=== PATIENT | female | born 1975 | race Caucasian/White ===

== ENCOUNTER 2022-10-04 12:34 | Outpatient (OUT) | payer BC, SELFPAY ==
--- NOTE | 2022-10-04 12:44 | MM_ITS ---
Patient: IRENE SAMPSON Exam Date: 10/04/2022 : 1975 Gender:F Ordering : DR ADILSON ROUSSEAU . Admission #: [id number] Family : DR IRMA CHASE M.D. Order #: [id number] CLICK HERE TO VIEW EXAM RADIOLOGY REPORT PROCEDURE: MM TOMOSYNTHESIS SCREENING BI COMPARISON: MG MAMM SCREEN 3D ANTHONY CAD, 09/25/2021. MG MAMM SCREEN 3D ANTHONY CAD, 09/22/2020. MG MAMM SCREEN ANTHONY W CAD, 09/15/2019. MG MAMM SCREEN ANTHONY W CAD, 06/14/2017. INDICATIONS: Screening mammogram Z12.31 Calculator Name NCI Breast Cancer Risk Assessment Tool 5 Year Breast Cancer Risk 0.70% Lifetime Breast Cancer Risk 8.60% Personal Breast Cancer No Personal Ovarian Cancer No Treatments None Family Cancers None LOCATION: [facility] BREAST COMPOSITION: Scattered areas fibroglandular density. FINDINGS: DIAGNOSTIC CATEGORY 1--NEGATIVE. RIGHT BREAST: No significant suspicious finding. No significant change has occurred. LEFT BREAST: No significant suspicious finding. No significant change has occurred. RECOMMENDATIONS: ROUTINE MAMMOGRAM AND CLINICAL EVALUATION IN 12 MONTHS. PLEASE NOTE: A NORMAL MAMMOGRAM DOES NOT EXCLUDE THE POSSIBILITY OF BREAST CANCER. A CLINICALLY SUSPICIOUS PALPABLE LUMP SHOULD BE BIOPSIED. Dictated by: Armando Barry M.D. on 10/04/2022 at 16:34 Approved by: Armando Barry M.D. on 10/04/2022 at 16:37
== END 2022-10-04 12:35 | disposition home or self-care (01) ==
LOC: MAMMO 12:38
PROVIDERS: PCP Family Medicine; Visit Provider Obstetrics & Gynecology
DX: Z12.31 Encounter for screening mammogram for malignant neoplasm of breast (principal)
CPT/HCPCS: 77063; 77067

== ENCOUNTER 2023-10-07 13:49 | Outpatient (OUT) | payer OTHER, SELFPAY ==
--- NOTE | 2023-10-07 13:51 | MM_ITS ---
Patient Name: IRENE SAMPSON MR#: [id number] : 1975 Exam Date: 10/07/2023 Ordering Doctor: NOEMY Galindo RADIOLOGY REPORT PROCEDURE: MM TOMOSYNTHESIS SCREENING BI COMPARISON: MM TOMOSYNTHESIS SCREENING BI, 10/04/2022. MG MAMM SCREEN 3D ANTHONY CAD, 09/25/2021. MG MAMM SCREEN 3D ANTHONY CAD, 09/22/2020. MG MAMM SCREEN ANTHONY W CAD, 06/14/2017. INDICATIONS: Screening Calculator Name NCI Breast Cancer Risk Assessment Tool 5 Year Breast Cancer Risk 0.80% Lifetime Breast Cancer Risk 8.50% Personal Breast Cancer No Personal Ovarian Cancer No Treatments None Family Cancers None LOCATION: [facility] BREAST COMPOSITION: There are scattered areas of fibroglandular density. FINDINGS: DIAGNOSTIC CATEGORY 2--BENIGN FINDING: RIGHT BREAST: No significant suspicious finding. Scattered benign-appearing lymph nodes are present. No significant change has occurred. LEFT BREAST: No significant suspicious finding. Scattered benign-appearing lymph nodes are present. No significant change has occurred. RECOMMENDATIONS: ROUTINE MAMMOGRAM AND CLINICAL EVALUATION IN 12 MONTHS. PLEASE NOTE: A NORMAL MAMMOGRAM DOES NOT EXCLUDE THE POSSIBILITY OF BREAST CANCER. A CLINICALLY SUSPICIOUS PALPABLE LUMP SHOULD BE BIOPSIED. Dictated by: Armando Barry M.D. on 10/08/2023 at 13:46 Approved by: Armando Barry M.D. on 10/08/2023 at 13:49
== END 2023-10-07 13:50 | disposition home or self-care (01) ==
LOC: MAMMO 13:49
PROVIDERS: PCP Family Medicine; Visit Provider Nurse Practitioner Family
DX: Z12.31 Encounter for screening mammogram for malignant neoplasm of breast (principal)
CPT/HCPCS: 77063; 77067

== ENCOUNTER 2024-05-21 12:24 | Outpatient (OUT) | payer OTHER, SELFPAY ==
--- OUTSIDE RECORDS SUMMARY | 2024-05-21 12:30 | XMS_ITS | CCD ---
Author Organization [facility] Care Team Providers Care 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 Name Role Phone VALENTINE Clemente Attending Provider [phone] ONELIA, DR DE ANDA Consulting Unavailable ONELIA, DR DE ANDA Attending Unavailable LULY, DR SOLIS Primary Care Unavailable ONELIA, DR DE ANDA Admitting Unavailable ZISUSI, DR GISELA Teague Consulting Unavailable DO Gregorio Maldonado Attending Provider [phone] GILLES MAURICIO Primary Care Physician MD Reji Castellano Attending Provider MD Luly Gilles Primary Care Provider [phone] Gilles Mauricio Primary Care Unavailable Reji Castellano Attending Unavailable Reji Castellano Admitting Unavailable Gregorio Maldonado Attending Unavailable Gregorio Maldonado Admitting Unavailable KERRI MANZANARES Referring Unavailable LULY GILLES Heavenly Primary Care Unavailable JENIFFER BRISCOE Attending Unavailable GILLES MAURICIO Referring Unavailable GILLES MAURICIO Primary Care Unavailable Luly FAGAN Gilles Heavenly Primary Care Provider [phone] Kerri Manzanares NP Unavailable Gilles Mauricio MD Unavailable Gilles Mauricio MD Primary Care Provider [phone] DAVID CHRISTENSEN Attending Unavailab GILLES Park Attending Unavailable GILLES MAURICIO Referring Unavailable KERRI MANZANARES Attending Unavailable KERRI MANZANARES Attending Unavailable GREGORIO MALDONADO Attending Unavailable GLENNA KERRI R Referring Unavailable KERRI MANZANARES R Attending Unavailable GILLES MAURICIO Attending Unavailable GILLES MAURICIO Referring Unavailable GREGORIO MALDONADO Attending Unavailable REJI CASTELLANO Referring Unavailable KERRI MANZANARES Attending Unavailable Reji CASTELLANO Attending Unavailable GILLES MAURICIO Referring Unavailable Mandy Tejeda Attending Unavailable GILLES MAURICIO Referring Unavailable Allergies Allergy Classification Reported Allergen(s) Allergy Type Date of Onset Reaction(s) Facility (11 sources) LEVONORGESTREL-E THINYL ESTRAD; Translations: [LEVONORGESTREL- ETHINYL ESTRAD] Propensity to adverse reactions to drug (disorder) 4 [facility] (14 sources) Octacosanol Propensity to adverse reactions 4 [facility] (1 source) No Known Medication Allergies; Translations: [No Known Medication Allergies] Propensity to adverse reactions (disorder) [facility] Rep[facility] Medications Current Medications Medication Drug Class(es) Dates Sig (Normalized) Sig (Original) 0.25 MG, 0.5 MG Dose 3 ML semaglutide 0.68 MG/ML Pen Injector [Ozempic] (1 source) Start: 10-15-2023 Ozempic 2 mg/3 mL (0.25 mg or 0.5 mg dose) subcutaneous solution 0.25 mg Start Date: 10/15/23 Status: Ordered Allergy (1 source) Start: 02-27-2019 take 1 mg by mouth three times daily Allergy mg, Oral, TID, Refills(s) 0 Start Date: 02/27/19 Status: Ordered atorvastatin 10 mg oral tablet (19 sources) HMG-CoA Reductase Inhibitor Start: 05-04-2023 End: 10-22-2023 take 1 tablet by mouth once daily atorvastatin (Lipitor) 10 MG tablet Indications: Controlled type 2 diabetes mellitus with hyperglycemia, without long-term current use of insulin ([facility]) Take 1 tablet (10 mg) by mouth Daily 90 tablet 1 10/22/2023 Active Atorvastatin Dewey cium Active cephalexin 500 mg oral capsule (1 source) Cephalosporin Antibacterial Start: 05-03-2024 End: 05-08-2024 cephalexin (Keflex) 500 MG capsule Indications: Acute cystitis without hematuria Take 1 capsule (500 mg) by mouth in the morning and 1 capsule (500 mg) at noon and 1 capsule (500 mg) in the evening and 1 capsule (500 mg) before bedtime. Do all this for 5 days. 20 capsule 05/03/2024 05/08/2024 Active cloNIDine hydrochloride 0.1 mg oral tablet (4 sources) Central alpha-2 Adrenergic Agonist Start: 04-30-2024 End: 08-28-2024 take 1 tablet by mouth at bedtime cloNIDine (Catapres) 0.1 MG tablet Indications: Hot flashes Take 1 tablet (0.1 mg) by mouth at bedtime 30 tablet 3 04/30/2024 08/28/2024 Active 0.5 ml dulaglutide 1.5 mg/ml auto-injector (4 sources) GLP-1 Receptor Agonist Start: 04-30-2024 inject 0.75 mg by subcutaneous injection every week Dulaglutide (Trulicity) 0.75 MG/0.5ML solution auto-injector Indications: Controlled type 2 diabetes mellitus with hyperglycemia, without long-term current use of insulin (CMS/HCC) Inject 0.75 mg under the skin 1 (one) time per week 6 mL 11 04/30/2024 Active estrogens, conjugated (retirement) 0.9 mg oral tablet (1 source) Estrogen Start: 03-15-2020 Premarin 0.9 mg, Oral Start Date: 03/15/20 Status: Ordered ferrous sulfate (3 sources) End: 04-14-2024 take 1 tablet by mouth in the morning Ferrous Sulfate (IRON PO) Take 1 tablet by mouth in the morning. 04/14/2024 Discontinued (Therapy completed) take 1 tablet by mouth in the mo rning Ferrous Sulfate (IRON PO) Take 1 tablet by mouth in the morning. Active fluconazole 150 mg oral tablet (4 sources) Azole Antifungal Start: 11-13-2023 End: 04-14-2024 fluconazole (Diflucan) 150 MG tablet 11/13/2023 04/14/2024 Discontinued (Therapy completed) Start: 11-12-2023 End: 11-12-2023 take 1 tablet by mouth once fluconazole (Diflucan) 150 MG tablet Indications: Yeast infection Take 1 tablet (150 mg) by mouth 1 (one) time for 1 dose 1 tablet 11/12/2023 11/12/2023 Active fluticasone propionate 0.05 mg/actuat metered dose nasal spray (12 sources) Corticosteroid Start: 02-14-2024 End: 04-30-2025 take 1 spray(s) nasal route once daily fluticasone (Flonase) 50 MCG/ACT nasal spray Indications: Allergic rhinitis due to pollen, unspecified seasonality Administer 1 spray into each nostril Daily Shake gently. Before first use, prime pump. After use, clean tip and replace cap. 16 g 2 04/30/2024 04/30/2025 Active Flonase Active loratadine 10 mg oral tablet (18 sources) Start: 10-22-2023 End: 10-22-2023 take 1 tablet by mouth once daily loratadine (Allergy) 10 MG tablet Indications: Allergic rhinitis due to pollen, unspecified seasonality Take 1 tablet (10 mg) by mouth Daily 90 tablet 1 10/22/2023 Active Loratadine Activ e metFORMIN hydrochloride 500 mg oral tablet (19 sources) Biguanide Start: 02-27-2019 End: 10-22-2023 take 1 tablet by mouth in the morning metFORMIN (Glucophage) 500 MG tablet Indications: Controlled type 2 diabetes mellitus with hyperglycemia, without long-term current use of insulin (CMS/HCC) Take 1 tablet (500 mg) by mouth in the morning and 1 tablet (500 mg) in the evening. Take with meals. 180 tablet 1 10/22/2023 Active methylPREDNISolone (1 source) Corticosteroid Start: 05-07-2018 Depo-Medrol 40 mg May, 40 mg metoprolol tartrate 25 mg oral tablet (20 sources) beta-Adrenergic Marilou Start: 08-19-2023 End: 04-30-2024 take 1 tablet by mouth in the morning metoprolol tartrate (Lopressor) 25 MG tablet Indications: Essential hypertension (CMS/HCC) Take 1 tablet (25 mg) by mouth in the morning and 1 tablet (25 mg) before bedtime. 180 tablet 3 04/30/2024 Active Start: 02-27-2019 take 1 mg by mouth twice daily Metoprolol tartrate 50 mg Tab mg tab(s), Oral, BID, Refills(s) 0 Start Date: 02/27/19 Status: Ordered Metoprolol-hydroCHLOROthiazi de (1 source) Metoprolol-hydro CHLOROthiazide Active aldljkig-lurk-NA-calcium &mi ns (THERAGRAN-M) 9 mg iron-400 mcg tablet (1 source) jagusjch-auzq-ED -calcium &mins (THERAGRAN-M) 9 mg iron-400 mcg tablet Take 1 tablet by mouth in the morning. Active Multivitamin preparation (1 source) Multivitamin Act shi Ozempic (1 source) Ozempic Active OZEMPIC 0.25 mg or 0.5 mg (2 mg/3 mL) pen injector (1 source) S t a r t : 0 8 - 2 0 - 2 0 2 4 OZEMPIC 0.25 mg or 0.5 mg (2 mg/3 mL) pen injector Inject 0.5 mg as directed once a week. 10/22/2023 Active Potassimin (1 source) Potassimin Activ e QUEtiapine 25 mg oral tablet (19 sources) Atypical Antipsychotic S t a r t : 0 8 - 2 0 - 2 0 2 4 take 1 tablet by mouth at bedtime QUEtiapine (SEROquel) 25 MG tablet Indications: Insomnia, unspecified type Take 1 tablet (25 mg) by mouth at bedtime 90 tablet 3 10/22/2023 Active Start: 02-27-2019 End: 10-22-2023 take 1 tablet by mouth at bedtime QUEtiapine (SEROquel) 25 MG tablet Indications: Insomnia, unspecified type Take 1 tablet (25 mg) by mouth at bedtime 90 tablet 3 10/22/2023 Active SEROquel Active tamsulosin hydrochloride 0.4 mg oral capsule (1 source) alpha-Adrenergic Marilou Start: 10-15-2023 End: 10-29-2023 take 1 capsule by mouth once daily Flomax 0.4 mg Cap 0.4 mg = 1 cap(s), Oral, Daily, X 14 day(s), # 14 cap(s), Refills(s) 0, Pharmacy: [id number], 173, cm, 10/15/23 14:19:00 EDT, Height/Length Dosing, 103.6, kg, 10/15/23 14:19:00 EDT, Weight Dosing Start Date: 10/15/23 Stop Date: 10/29/23 Status: Ordered 24 hr venlafaxine 150 mg extended release oral capsule (20 sources) Serotonin and Norepinephrine Reuptake Inhibitor Start: 10-22-2023 take 1 capsule by mouth every twenty-four hours in the morning venlafaxine XR (EFFEXOR-XR) 150 mg 24 hr capsule Take 1 capsule (150 mg total) by mouth in the morning. 10/22/2023 Active Start: 08-19-2023 End: 04-30-2024 take 1 capsule by mouth once daily venlafaxine XR (Effexor XR) 150 MG 24 hr capsule Indications: Anxiety Take 1 capsule (150 mg) by mouth Daily 90 capsule 3 04/30/2024 Active Start: 02-27-2019 take 100 mg by mouth once efraín y Effexor XR Oral, Daily, 100 mg, Refills(s) 0 Start Date: 02/27/19 Status: Ordered Effexor Active Completed/Discontinued Medications Medication Drug Class(es) Dates Sig (Normalized) Sig (Original) amoxicillin 875 mg / clavulanate 125 mg oral tablet (3 sources) Penicillin-class Antibacterial Start: 04-17-2024 End: 04-30-2024 take 1 tablet by mouth in the morning amoxicillin-clavul anate (Augmentin) 875-125 MG tablet Indications: Acute non-recurrent pansinusitis Take 1 tablet (875 mg) by mouth in the morning and 1 tablet (875 mg) before bedtime. Do all this for 7 days. 14 tablet 04/17/2024 04/30/2024 Discontinued (Therapy completed) Ozempic, 0.25 or 0.5 MG/DOSE, 2 MG/3ML solution pen-injector (3 sources) Start: 08-19-2023 End: 10-22-2023 inject 0.5 mg by subcutaneous injection every week Ozempic, 0.25 or 0.5 MG/DOSE, 2 MG/3ML solution pen-injector Indications: Controlled type 2 diabetes mellitus with hyperglycemia, without long-term current use of insulin (CMS/HCC) INJECT 0.5 MG UNDER THE SKIN ONCE WEEKLY 9 mL 3 08/19/2023 10/22/2023 Discontinued (Reorder) Start: 08-19-2023 inject 0.5 mg by sub cutaneous injection every week Ozempic, 0.25 or 0.5 MG/DOSE, 2 MG/3ML solution pen-injector Indications: Controlled type 2 diabetes mellitus with hyperglycemia, without long-term current use of insulin (CMS/HCC) INJECT 0.5 MG UNDER THE SKIN ONCE WEEKLY 9 mL 3 08/19/2023 Active Semaglutide,0.25 or 0.5MG/DO S, (Ozempic, 0.25 or 0.5 MG/DOSE,) 2 MG/3ML solution pen-injector (11 sources) Start: 10-22-2023 End: 04-30-2024 Semaglutide,0.25 or 0.5MG/DO S, (Ozempic, 0.25 or 0.5 MG/DOSE,) 2 MG/3ML solution pen-injector Indications: Controlled type 2 diabetes mellitus with hyperglycemia, without long-term current use of insulin (CMS/HCC) Inject 0.5 mg as directed 1 (one) time per week 9 mL 3 10/22/2023 04/30/2024 Discontinued (Therapy completed) Start: 10-22-2023 Semaglutide,0. 25 or 0.5MG/DOS, (Ozempic, 0.25 or 0.5 MG/DOSE,) 2 MG/3ML solution pen-injector Indications: Controlled type 2 diabetes mellitus with hyperglycemia, without long-term current use of insulin (CMS/HCC) Inject 0.5 mg as directed 1 (one) time per week 9 mL 3 10/22/2023 Active Problems Active Problems Problem Classification Problem Date Documented Date Episodic/Chronic Abdominal pain (6 sources) Abdominal pain; Translations: [Unspecified abdominal pain] Onset: 10-15-2023 Episodic Anxiety disorders (19 sources) Anxiety disorder; Translations: [Anxiety] Onset: 11-16-2016 02-27-2019 Chronic Calculus of urinary tract (10 sources) Ureteric stone; Translations: [Calculus of ureter] Onset: 10-15-2023 Episodic Diabetes mellitus with complications (18 sources) Type 2 diabetes mellitus well controlled; Translations: [Type 2 diabetes mellitus with hyperglycemia] Onset: 11-27-2022 10-22-2023 Chronic Diabetes mellitus without complication (1 source) Type 2 diabetes mellitus 10-15-2023 Chronic Diseases of white blood cells (14 sources) Lymphocytosis (symptomatic); Translations: [Leukocytosis] Onset: 11-29-2023 04-14-2024 Chronic Disorders of lipid metabolism (19 sources) Hyperlipidemia; Translations: [Hypertriglyceridemia ] Onset: 09-25-2019 10-15-2023 Chronic Essential hypertension (19 sources) Hypertensive disorder; Translations: [Essential hypertension] Onset: 11-27-2022 10-15-2023 Chronic Genitourinary symptoms and ill-defined conditions (2 sources) Dysuria; Translations: [Microscopic hematuria] 02-27-2019 Episodic Headache; including migraine (1 source) Headache 10-15-2023 Episodic Mood disorders (20 sources) Depression; Translations: [Depressive disorder] Onset: 01-22-2019 02-27-2019 Chronic Nutritional deficiencies (14 sources) Vitamin D deficiency; Translations: [Vitamin D deficiency, unspecified] Onset: 11-16-2015 11-27-2022 Chronic Other ear and sense organ disorders (2 sources) Otalgia, right ear; Translations: [Otalgia, unspecified] 04-14-2024 Episodic Other lower respiratory disease (2 sources) Cough; Translations: [Cough, unspecified type] 04-14-2024 Episodic Other nutritional; endocrine; and metabolic disorders (16 sources) Body mass index 30+ - obesity; Translations: [Obesity, unspecified] Onset: 11-27-2022 10-22-2023 Chronic Other upper respiratory disease (4 sources) Allergic rhinitis due to pollen; Translations: [Allergic rhinitis due to pollen] 10-22-2023 Chronic Other upper respiratory disease (14 sources) Allergic rhinitis; Translations: [Allergic rhinitis, unspecified] Onset: 03-27-2016 11-27-2022 Chronic Other upper respiratory disease (2 sources) Nasal congestion; Translations: [Nasal congestion] 04-14-2024 Episodic Other upper respiratory infections (3 sources) Viral upper respiratory tract infection; Translations: [Acute upper respiratory infection, unspecified] 04-14-2024 Episodic Residual codes; unclassified (2 sources) Menopause present; Translations: [Asymptomatic menopausal state] 04-30-2024 Episodic Residual codes; unclassified (2 sources) Flushing; Translations: [Flushing] 04-30-2024 Episodic Unclassified (4 sources) Patient on antidepressant monitoring plan Onset: 04-30-2024 04-30-2024 Unclassified (4 sources) Baseline PHQ-9 Onset: 04-30-2024 04-30-2024 Urinary tract infections (1 source) Acute cystitis; Translations: [Acute cystitis without hematuria] 05-03-2024 Episodic Past or Other Problems Problem Classification Problem Date Documented Da te Episodic/Chronic Hemorrhoids (14 sources) Internal hemorrhoids grade II; Translations: [Second degree hemorrhoids] Onset: 10-03-2023 10-03-2023 Episodic Mycoses (1 source) Mycosis; Translations: [Candidiasis, unspecified] 11-12-2023 Episodic Other and unspecified benign neoplasm (14 sources) Adenomatous polyp of colon ; Translations: [Benign neoplasm of transverse colon] Onset: 10-03-2023 10-03-2023 Episodic Other non-traumatic joint disorders (1 source) Pain in left knee Onset: 07-18-2021 Resolved: 07-18-2021 Episodic Other screening for suspected conditions (not mental disorders or infectious disease) (20 sources) Encounter for screening mammogram for malignant neoplasm of breast; Translations: [Encounter for screening for malignant neoplasm of colon] Onset: 09-25-2021 Episodic Residual codes; unclassified (16 sources) History of hysterectomy for benign disease; Translations: [Acquired absence of both cervix and uterus] Onset: 11-27-2022 10-22-2023 Episodic Residual codes; unclassified (16 sources) Insomnia; Translations: [Insomnia, unspecified] Onset: 03-27-2016 10-22-2023 Episodic Residual codes; unclassified (15 sources) Other specified health status; Translations: [Other drug allergy] Onset: 10-22-2023 10-22-2023 Episodic Superficial injury; contusion (2 sources) Contusion of left knee, initial encounter; Translations: [Abrasion, left knee, initial encounter] Onset: 07-18-2021 Resolved: 07-18-2021 Episodic Results Test Name Value Interpretation Reference Range Facility CBC W Auto Differential pane l (Bld)on 05-01-2024 Basophils (Bld) [#/Vol] 55 10*3/uL [facility] Basophils/100 WBC (Bld) 0.4 % [facility] Eosinophils (Bld) [#/Vol] 178 10*3/uL [facility] Eosinophils/100 WBC (Bld) 1.3 % [facility] Erythrocyte distribution width (RBC) [Ratio] 13 % 11.0 - 15.0 % [facility] Hematocrit (Bld) [Volume fraction] 41.2 % 35.0 - 45.0 % [facility] ([facility]ld[facility] [Mass/Vol] 13.7 g/dL 11.7 - 15.5 g/dL [facility] Lymphocytes (Bld) [#/Vol] 4658 10*3/uL High [facility] Lymphocytes/100 WBC (Bld) 34 % [facility] MCH (RBC) [Entitic mass] 30.4 pg 27.0 - 33.0 pg [facility] MCHC (RBC) [Mass/Vol] 33.3 g/dL 32.0 - 36.0 g/dL [facility] Comment on above: For adults, a slight decrease in the calculated MCHC value (in the range of 30 to 32 g/dL) is most likely not clinically significant; however, it should be interpreted with caution in correlation with other red cell parameters and the patient's clinical condition. MCV (RBC) [Entitic vol] 91.6 fL 80.0 - 100.0 fL [facility] Monocytes (Bld) [#/Vol] 1041 10*3/uL High [facility] Monocytes/100 WBC (Bld) 7.6 % [facility] Neutrophils (Bld) [#/Vol] 7768 10*3/uL [facility] Neutrophils/100 WBC (Bld) 56.7 % [facility] Platelet mean volume (Bld) [Entitic vol] 10.9 fL 7.5 - 12.5 fL [facility] Platelets (Bld) [#/Vol] 348 10*3/uL [facility] RBC (Bld) [#/Vol] 4.5 10*6/uL [facility] WBC (Bld) [#/Vol] 13.7 10*3/uL High [facility] Laboratory - Chemistry and C hemistry - challengeon 05-01-2024 Albumin [Mass/Vol] 4.4 g/dL 3.6 - 5.1 g/dL [facility] Albumin/Globulin [Mass ratio] 1.5 {ratio} [facility] ALP [Catalytic activity/Vol] 91 U/L 31 - 125 U/L [facility] ALT [Catalytic activity/Vol] 23 U/L 6 - 29 U/L [facility] AST [Catalytic activity/Vol] 15 U/L 10 - 35 U/L [facility] Bilirubin [Mass/Vol] 0.3 mg/dL 0.2 - 1 .2 mg/dL [facility] Calcium [Mass/Vol] 9.6 mg/dL 8.6 - 10. 2 mg/dL [facility] Chloride [Moles/Vol] 103 mmol/L 98 - 11 0 mmol/L [facility] CO2 [Moles/Vol] 27 mmol/L 20 - 32 mmol/L [facility] Creatinine [Mass/Vol] 0.66 mg/dL 0.50 - 0.99 mg/dL [facility] Follitropin Qn 6.4 m[IU]/mL mIU/mL [facility] Comment on above: Reference Range Follicular Phase 2.5-10.2 Mid-cycle Peak 3.1-17.7 Luteal Phase 1.5- 9.1 Postmenopausal 23.0-116.3 GFR/1.73 sq M.predicted among non-blacks MDRD (S/P/Bld) [Vol rate/Area] 109 mL/min/{1.73_m2} > OR = 60 mL/min/1.73m2 [facility] Globulin (S) [Mass/Vol] 3 g/dL [facility] Glucose [Mass/Vol] 94 mg/dL 65 - 99 mg/dL [facility] Comment on above: Fasting reference interval Potassium [Moles/Vol] 4.4 mmol/L 3.5 - 5.3 mmol/L [facility] Protein [Mass/Vol] 7.4 g/dL 6.1 - 8.1 g/dL [facility] Sodium [Moles/Vol] 140 mmol/L 135 - 146 mmol/L [facility] TSH Qn 2.08 m[IU]/L mIU/L [facility] Comment on above: Reference Range > or = 20 Years 0.40-4.50 Ranges First trimester 0.26-2.66 Second trimester 0.55-2.73 Third trimester 0.43-2.91 Urea nitrogen [Mass/Vol] 15 mg/dL 7 - 25 mg/dL [facility] Urea nitrogen/Creatinine [Mass ratio] SEE NOTE: [facility] Comment on above: Not Reported: BUN an d Creatinine are within reference range. Laboratory - Miscellaneous t estson 05-01-2024 Service comment (Unsp spec) [Interp] [facility] Comment on above: This urine was manjit zed for the presence of WBC, RBC, bacteria, casts, and other formed elements. Only those elements seen were reported. Lipid 1996 panelon Cholesterol [Mass/Vol] 144 mg/dL NINF - 200 mg/dL [facility] Cholesterol in HDL [Mass/Vol] 45 mg/dL Low > OR = 50 [facility] Cholesterol in LDL [Mass/Vol] 66 mg/dL mg/dL (calc) [facility] Comment on above: Reference range: <10 0 Desirable range <100 mg/dL for primary prevention; <70 mg/dL for patients with CHD or diabetic patients with > or = 2 CHD risk factors. LDL-C is now calculated using the Foreign-Lawler calculation, which is a validated novel method providing better accuracy than the Friedewald equation in the estimation of LDL-C. Foreign SS et al. MARKELL. 2013;310(19): 2272-7064 (http://education.Canvas/faq/WIS790) Cholesterol non HDL [Mass/Vol] 99 mg/dL [facility] Comment on above: For patients with di abetes plus 1 major ASCVD risk factor, treating to a non-HDL-C goal of <100 mg/dL (LDL-C of <70 mg/dL) is considered a therapeutic option. Cholesterol.total/Cho lesterol in HDL [Mass ratio] 3.2 {ratio} [facility] Triglyceride [Mass/Vol] 283 mg/dL High [facility] - 150 mg/dL [facility] Comment on above: If a non-fasting specimen was collected, consider repeat triglyceride testing on a fasting specimen if clinically indicated. Chano et al. J. of Clin. Lipidol. 2015;9:129-169. No Panel Informationon 05-01 Interpretation and review of laboratory results Abnormal [facility] PATIENT UNABLE TO VOID; ADVISED TO RETURN FOR COLLECTION. [facility] Information Site ID: QPT Name: [employer] [facility] Address: [address] [place] [address], [address] [place] [id number] Director: Hector Holman MD [facility] [employer] SPLIT 04/30/2024 FROM [id number] [facility] Information Site ID: QPT Name: [employer] [facility] Address: [address] [place] [address], [address] [place] [id number] Director: Hector Holman MD [facility] Urinalysis complete panel (U )on 05-01-2024 Appearance (U) CLEAR CLEAR [facility] Bacteria LM.HPF (Urine sed) [#/Area] FEW Abnormal NONE SEEN /HPF [facility] Bilirubin Ql (U) Negative NEGATIVE [facility] Color (U) YELLOW YELLOW [facility] Epithelial cells.squamous LM.HPF (Urine sed) [#/Area] 10-20 Abnormal < OR = 5 /HPF [facility] care Glucose Ql (U) Negative NEGATIVE [facility] Hemoglobin Ql (U) Negative NEGATIVE [facility] Hyaline casts (Urine sed) [#/Area] NONE SEEN NONE SEEN /LPF [facility] Interpretation and review of laboratory results Abnormal [facility] Ketones Ql (U) Negative NEGATIVE [facility] Leukocyte esterase Test strip Ql (U) TRACE Abnormal NEGATIVE [facility] Nitrite Ql (U) Negative NEGATIVE [facility] pH (U) 7 [pH] 5.0 - 8.0 [facility] Protein Ql (U) Negative NEGATIVE [facility] RBC LM.HPF (Urine sed) [#/Area] NONE SEEN < OR = 2 /HPF [facility] Specific gravity (U) [Rel density] 1.023 1.001 - 1.035 [facility] WBC LM.HPF (Urine sed) [#/Area] 6-10 Abnormal < OR = 5 /HPF [facility] HbA1c (Bld) [Mass fraction]o n 04-30-2024 Interpretation and review of laboratory results [facility] - Hematology and Cell countson 04-30-2024 HbA1c (Bld) [Mass fraction] 5.9 % [facility] XR ABDOMEN 1 VIEWon 04-30-19 25 XR ABDOMEN 1 VIEW XR ABDOMEN 1 VIEW REASON FOR STUDY: Left flank pain COMPARISON: None AP views of the abdomen and pelvis The bowel gas pattern is normal. 5 mm stone in the right upper kidney. Small phleboliths in the right hemipelvis. IMPRESSION: Small right upper pole stone, 5 mm. Dictated on: 05/01/2024 9:05 AM This report has been electronically signed and approved by the interpreting Radiologist. Normal Not Available Laboratory - Microbiology an d Antimicrobial susceptibilityon 04-14-2024 SARS-CoV-2 (COVID-19) RNA SANIYA+probe Ql (Unsp spec) Negative [facility] No Panel Informationon 04-14 FLU A Negative [facility] FLU B Negative [facility] Interpretation and review of laboratory results Normal [facility] CBC AND AUTO DIFFon 11-29-19 24 ABSOLUTE BASOPHIL 0.0 X10E9/L Normal 0.0-0.2 [facility] Comment on above: Performed By: #### C BCA #### [facility] ([id number]) [address], [address] [place] [address] ABSOLUTE NEUTROPHIL 6.6 X10E9/L Normal 1.5-6.6 [facility] Comment on above: Performed By: #### C BCA #### [facility] ([id number]) [address], [address] [place] [address] Basophils/100 WBC (Bld) 0.4 % Normal [facility] Comment on above: Performed By: #### C BCA #### [facility] ([id number]) [address], [address] [place] [address] Eosinophils (Bld) [#/Vol] 0.2 10*3/uL Normal 0.0-0.4 [facility] Comment on above: Performed By: #### C BCA #### [facility] ([id number]) [address], [address] [place] [address] Eosinophils/100 WBC (Bld) 1.7 % Normal [facility] Comment on above: Performed By: #### C BCA #### [facility] ([id number]) [address], [address] [place] [address] Erythrocyte distribution width (RBC) [Ratio] 13.6 % Normal 11.5-15.0 [facility] Comment on above: Performed By: #### C BCA #### [facility] ([id number]) [address], [address] [place] [address] Hematocrit (Bld) [Volume fraction] 39.0 % Normal 35-47 [facility] Comment on above: Performed By: #### C BCA #### [facility] ([id number]) [address], [address] [place] [address] Hemoglobin (Bld) [Mass/Vol] 13.2 g/dL Normal 11.7-15.5 [facility] Comment on above: Performed By: #### C BCA #### [facility] ([id number]) [address], [address] [place] [address] Lymphocytes (Bld) [#/Vol] 4.0 10*3/uL High 1.0-3.5 [facility] Comment on above: Performed By: #### C BCA #### [facility] ([id number]) [address], [address] [place] [address] Lymphocytes/100 WBC (Bld) 34.1 % Normal [facility] Comment on above: Performed By: #### C BCA #### [facility] ([id number]) [address], [address] [place] [address] MCH (RBC) [Entitic mass] 31.1 pg Normal 27-34 [facility] Comment on above: Performed By: #### C BCA #### [facility] ([id number]) [address], [address] [place] [address] MCHC (RBC) [Mass/Vol] 33.9 g/dL Normal 32-36 [facility] Comment on above: Performed By: #### C BCA #### [facility] ([id number]) [address], [address] [place] [address] MCV (RBC) [Entitic vol] 92 fL Normal 80-100 [facility] Comment on above: Performed By: #### C BCA #### [facility] ([id number]) [address], [address] [place] [address] Monocytes (Bld) [#/Vol] 0.9 10*3/uL Normal 0-0.9 [facility] Comment on above: Performed By: #### C BCA #### [facility] ([id number]) [address], [address] [place] [address] Monocytes/100 WBC (Bld) 8.0 % Normal [facility] Comment on above: Performed By: #### C BCA #### [facility] ([id number]) [address], [address] [place] [address] Neutrophils/100 WBC (Bld) 55.8 % Normal [facility] Comment on above: Performed By: #### C BCA #### [facility] ([id number]) [address], [address] [place] [address] Platelet mean volume (Bld) [Entitic vol] 9.4 fL Normal 7-12 [facility] Comment on above: Performed By: #### C BCA #### [facility] ([id number]) [address], [address] [place] [address] Platelets (Bld) [#/Vol] 312 10*3/uL Normal 150-450 [facility] Comment on above: Performed By: #### C BCA #### [facility] ([id number]) [address], [address] [place] [address] RBC COUNT 4.25 X10E12/L Normal 3.80-5.20 [facility] Comment on above: Performed By: #### C BCA #### [facility] ([id number]) [address], [address] [place] [address] WBC (Bld) [#/Vol] 11.8 10*3/uL High 4.0-11.0 [facility] Comment on above: Performed By: #### C BCA #### [facility] ([id number]) [address], [address] [place] [address] CBC W Auto Differential pane l (Bld)on 11-29-2023 ABSOLUTE BASOPHIL 0.0 [facility] Comment on above: PERFORMED AT [facility] [address],[place] [address] Basophils/100 WBC (Bld) 0.4 % [facility] Eosinophils (Bld) [#/Vol] 0.2 10*3/uL [facility] Eosinophils/100 WBC (Bld) 1.7 % [facility] Erythrocyte distribution width (RBC) [Ratio] 13.6 % 11.5 - 15.0 % [facility] Hematocrit (Bld) [Volume fraction] 39.0 % 35 - 47 % [facility] Hemoglobin (Bld) [Mass/Vol] 13.2 g/dL 11.7 - 15.5 g/dL [facility] Interpretation and review of laboratory results Abnormal [facility] Lymphocytes (Bld) [#/Vol] 4.0 10*3/uL High [facility] Lymphocytes/100 WBC (Bld) 34.1 % [facility] MCH (RBC) [Entitic mass] 31.1 pg 27 - 34 pg [facility] MCHC (RBC) [Mass/Vol] 33.9 g/dL 32 - 36 g/dL [facility] MCV (RBC) [Entitic vol] 92 fL 80 - 100 fL [facility] Monocytes (Bld) [#/Vol] 0.9 10*3/uL [facility] Monocytes/100 WBC (Bld) 8.0 % [facility] Neutrophils (Bld) [#/Vol] 6.6 10*3/uL [facility] Neutrophils/100 WBC (Bld) 55.8 % [facility] Platelet mean volume (Bld) [Entitic vol] 9.4 fL 7 - 12 [facility] ([facility]ld[facility] [#/Vol] 312 10*3/uL [facility] RBC (Bld) [#/Vol] 4.25 10*6/uL [facility] WBC corrected for nucl RBC Auto (Bld) [#/Vol] 11.8 High [facility] XR IVPon 10-18-2023 XR IVP [facility] Main [address] [address] XRay Report Signed Patient: Irene Lopez MR#: [id number] : 1975 Acct:[id number] Age/Sex: 48 / F ADM Date: 10/18/23 Loc: XD Room: Type: [facility] Attending Dr: Reji Castellano MD Copies to: Reji Castellano MD Ordering Provider: Reji Castellano MD Date of Service: 10/18/23 XR/XR IVP: N20.1,N20.0 XR IVP 10/18/2023 10:30 AM SIGNS AND SYMPTOMS: Recent outside study demonstrates a 2 to 3 mm stone along the distal left ureter. Left-sided flank pain with bilateral renal stones. PROTOCOL: Radiographic images of the abdomen and pelvis were obtained before and after intravenous Isovue-300 administration. Contrast: 130 mL of intravenous Isovue-300 COMPARISON: 10/14/2023 FINDINGS: There has been interval resolution of the radiodense suspected stone along the expected course of the distal left ureter. Vascular calcifications are redemonstrated in the pelvis. There is a 4 mm nonobstructing stone near the superior pole of the right renal collecting system. There is no evidence of hydronephrosis. The ureters fill with contrast without evidence of hydroureter. No evidence of filling defect within the ureters. Minimal residual contrast in the bladder as noted on post void imaging. XR/XR IVP IMPRESSION: Findings suggest interval resolution of the distal left ureteral stone. No hydronephrosis. There is a 4 mm nonobstructing stone near the superior pole of the right renal collecting system. Impression dictated by: Boogie Rubio M.D.10/18/2023 1:52 PM Dictation Location: [place] [address] Transcribed By: [facility] 10/18/23 1352 Dictated By: Boogie Rubio II, MD 10/18/23 1349 Signed By: 10/18/23 1352 Normal [facility] Ambulatory Visit Summaryon 0 10-15-2023 Ambulatory Visit Summary Ambulatory Visit Summary IRENE LOPEZ :1975 Visit Date:10/15/2023 Ambulatory Visit Instructions Your Diagnosis Ureteral stone Left flank pain Kidney stones History of kidney stones Tests Performed XR IVP -- Results Pending -- Please visit your patient portal for your results or contact your primary care physician. Your Care Team Attending Physician - Reji CASTELLANO MD Primary Care Physician - GILLES MAURICIO MD Referring Physician - GILLES MAURICIO MD This Is Your Medications List Contact prescribing physician if questions or concerns atorvastatin (atorvastatin 10 mg Tab) conjugated estrogens (Premarin) diphenhydrAMINE (Allergy) metformin (metformin 500 mg ER Tab) metoprolol (Metoprolol tartrate 50 mg Tab) quetiapine (SEROquel 25 mg Tab) semaglutide (Ozempic 2 mg/3 mL (0.25 mg or 0.5 mg dose) subcutaneous solution) venlafaxine (Effexor XR) Procedures Performed Lithotripsy using laser (03/02/2019), Colonoscopy, Hysterectomy. Discharge Vitals Heart Rate (Peripheral) 94 Respiratory Rate 16 Blood Pressure 140/98 Height 173 cm Height 68 in Weight 103.6 kg Weight 227.92 lb BMI 34.62 What to do next You Need to Schedule the Following Appointments Follow Up with NONA FAGAN, TAMARA Garcia When: Where: [facility] [address] [place], [place] [id number]- Medications What How Much When Instructions Unchanged atorvastatin (atorvastatin 10 mg Tab) 1 Tablets By Mouth Every day Contact prescribing physician if questions or concerns Unchanged conjugated estrogens (Premarin) 0.9 Milligram By Mouth Contact prescribing physician if questions or concerns Unchanged diphenhydrAMINE (Allergy) By Mouth 3 times a day Contact prescribing physician if questions or concerns Unchanged metformin (metformin 500 mg ER Tab) By Mouth Every day Contact prescribing physician if questions or concerns Unchanged metoprolol (Metoprolol tartrate 50 mg Tab) By Mouth 2 times a day Contact prescribing physician if questions or concerns Unchanged quetiapine (SEROquel 25 mg Tab) By Mouth 3 times a day Contact prescribing physician if questions or concerns Unchanged semaglutide (Ozempic 2 mg/ 3 mL (0.25 mg or 0.5 mg dose) subcutaneous solution) 0.25 Milligram Contact prescribing physician if questions or concerns Unchanged venlafaxine (Effexor XR) By Mouth Every day 100 mg Contact prescribing physician if questions or concerns Allergies No Known Medication Allergies Problems Ongoing - Any problem that you are currently receiving treatment for. Depression Dysuria Flank pain Headache History of kidney stones Hyperlipidemia Hypertension Kidney stone Kidney stones Left flank pain Microhematuria Right nephrolithiasis Type 2 diabetes mellitus Ureteral stone Historical - Any problem that you are no longer receiving treatment for. Anxiety disorder Depression Flank pain Nephrolithiasis Patient Survey You may receive a survey via text or e-mail asking about your office visit. Please share your experience with us by completing your survey. We appreciate your feedback and thank you for choosing us for your care. Education Materials Intravenous Pyelogram An intravenous pyelogram is an X-ray of the urinary tract. The urinary tract is the system through which urine travels. This tract includes the kidneys, ureters, and bladder. An intravenous pyelogram can help your health care provider find problems, such as: ? Kidney stones. ? Bladder stones. ? An enlarged prostate. ? Tumors. Tell a health care provider about: ? Any allergies you have. ? All medicines you are taking, including vitamins, herbs, eye drops, creams, and xpzi-pet-azfuxlj medicines. ? Any problems you or family members have had with anesthetic medicines. ? Any blood disorders you have. ? Any surgeries you have had. ? Any medical conditions you have. ? Whether you are or may be . What are the risks? Generally, this is a safe procedure. However, problems may occur, including: ? Nausea. ? An allergic reaction to the dye that is used during the procedure. What happens before the procedure? ? Follow instructions from your health care provider about eating or drinking restrictions. ? Follow instructions from your health care provider about preparing for the test by taking an oral bowel prep. ? Ask your health care provider about changing or stopping your regular medicines. This is especially important if you are taking diabetes medicines or blood thinners. ? You may need to remove glasses, jewelry, and any other metal objects. ? You may be asked to put on a hospital gown. What happens during the procedure? ? You will lie down on an exam table. ? An IV will be inserted into one of your veins. ? A contrast dye will be injected through the (more content not included)... Normal [facility] XR ABDOMEN 1 VIEWon 10-14-19 24 XR ABDOMEN 1 VIEW XR - ABDOMEN 1 VIEW REASON FOR STUDY: Bilateral flank pain COMPARISON: None 3 AP views of the abdomen were submitted. The bowel gas pattern is normal. 3 mm round calcification is seen superimposing the upper right kidney. There are calcifications in the pelvis that are most likely phleboliths. IMPRESSION: Small right-sided renal stone, roughly 3 mm in diameter. Dictated on: 10/14/2023 9:56 AM This report has been electronically signed and approved by the interpreting Radiologist. Electronically Signed Keshav Hoang D.O. 2023-10-14 09:57:[address] ABDOMEN PELVIS WO IV CONT [facility] 10-02-2023 CT ABDOMEN PELVIS WO IV CONTRAST CT - CT ABD PEL WO CONTRAST HISTORY: Left flank pain COMPARISON: None. TECHNIQUE: The study consists of helical images obtained through the abdomen and pelvis without the use of intravenous contrast. Coronal and sagittal reformations were reconstructed. The patient tolerated the procedure and there were no immediate complications. FINDINGS: ABDOMEN: VISUALIZED CHEST: Visualized portions of the lungs show no consolidation or effusions. LIVER: No focal mass or intrahepatic biliary dilatation. GALLBLADDER: Gallbladder is present with no calcified stones. SPLEEN: No focal masses or enlargement. KIDNEYS: Bilateral nephrolithiasis is seen. The largest stone is in an upper pole calyx in the right kidney and measures 4 mm. There is no visible hydronephrosis. There is a stone in the distal left ureter measuring approximately 2 to 3 mm in size. ADRENALS: No adrenal mass is seen. PANCREAS: No contour deforming lesions are seen. RETROPERITONEUM: No retroperitoneal adenopathy is seen. BOWEL: No abnormally dilated loops of bowel are seen. PELVIS COLON: No obstruction. No pericolonic inflammatory changes. There are a few diverticuli in the sigmoid colon. The appendix is visualized and is normal in size. PERITONEAL CAVITY: No free fluid or free air. BLADDER: Normal. REPRODUCTIVE ORGANS: The uterus is not seen. OSSEOUS STRUCTURES: Mild facet joint arthritis of the lower lumbar spine is noted. BODY WALL: No ventral abdominal wall hernia. IMPRESSION: 1. 2 to 3 mm stone in the region of the distal left ureter. No visible hydronephrosis. 2. Bilateral nephrolithiasis. Largest stone resides in an upper pole calyx on the right side, roughly 4 mm in diameter. Dictated on: 10/02/2023 10:38 AM This report has been electronically signed and approved by the interpreting Radiologist. Electronically Signed Keshav Hoang D.O. 2023-10-02 10:42:36 Normal Not Available [facility] 09-26-2023 L Specimen: Received: 09/26/23 Status: RANDEE Nassarshari Num: [id number] Spec Type: Surgical Subm Dr: Gregorio Maldonado DO Tissues: A Colon Biopsy (TRANSV POLYP) Procedures: HE/2, Gross/Micro L4 Age/ Patient Sex Location Account Attending Physician JamalIrene goodwin 48/F [place] [id number] Gregorio Maldonado DO SPEC NUM: [id number] RECD: 09/26/23 STATUS: BOYDean DYER NUM: [id number] ZULMA: 09/26/[address]: Gregorio Maldonado DO ENTERED: 09/26/[address]: Ruddy [facility] SPEC TYPE: Surgical DEPT: S ORDERED: HE/2, Gross/Micro L4 ORDERED: HE/2, Gross/Micro L4 Pathological Diagnosis Colon, transverse polyp (endoscopic polypectomy/biopsy): Tubular adenoma, minute fragment Clinical Information Screening Gross Description Received in formalin labeled with the patient's name, date of and transverse colon polyp are 3 mancilla mucosal tissue fragments ranging from 0.3 x 0.2 x 0.1 cm to 0.2 x 0.1 x 0.1 cm, entirely submitted in A1. CPT Codes 90046 Specimen: [id number] Received: 09/26/23 Status: RANDEE Aki Num: [id number] Spec Type: Surgical Subm Dr: Gregorio Maldonado, Tissues: A Colon Biopsy (TRANSV POLYP) Procedures: HE/2, Gross/Micro L4 Patient: Irene Lopez [id number] (Continued) Signed (signature on file) George Alas Jr., MD 09/27/23 1730 Normal [facility] MG MAMM SCREEN 3D ANTHONY CADon 09-25-2021 MG MAMM SCREEN 3D ANTHONY CAD Patient: IRENE LOPEZ. Exam Date: 09/25/2021 : 1975 Gender:F Ordering : DR ADILSON ROUSSEAU . Admission #: [id number] Family : Order #: [id number] CLICK HERE TO VIEW EXAM RADIOLOGY REPORT PROCEDURE: MAMMOGRAM SCREENING 3D BILATERAL CAD COMPARISON: MG MAMM SCREEN 3D ANTHONY CAD, 09/22/2020. MG MAMM SCREEN ANTHONY W CAD, 09/15/2019. INDICATIONS: Screening mammography Calculator Name NCI Breast Cancer Risk Assessment Tool 5 Year Breast Cancer Risk 0.70% Lifetime Breast Cancer Risk 8.70% Personal Breast Cancer No Personal Ovarian Cancer No Treatments None Family Cancers None LOCATION: [facility] BREAST COMPOSITION: Scattered areas fibroglandular density. FINDINGS: DIAGNOSTIC CATEGORY 1--NEGATIVE. RIGHT BREAST: No significant suspicious finding. No significant change has occurred. LEFT BREAST: No significant suspicious finding. No significant change has occurred. RECOMMENDATIONS: ROUTINE MAMMOGRAM AND CLINICAL EVALUATION IN 12 MONTHS. PLEASE NOTE: A NORMAL MAMMOGRAM DOES NOT EXCLUDE THE POSSIBILITY OF BREAST CANCER. A CLINICALLY SUSPICIOUS PALPABLE LUMP SHOULD BE BIOPSIED. Dictated by: Gisela Barry M.D. on 09/25/2021 at 15:37 Approved by: Gisela Barry M.D. on 09/25/2021 at 15:[address] [facility] XR knee LT 4V*on 07-18-2021 XR knee LT 4V* [facility] [employer] Other XR knee LT 4V* [facility] [employer] Other XR knee LT 4V* [address] [place] [address] [employer] Other XR knee LT 4V* [place] [address] No rt [employer] Other XR knee LT 4V* XRay Report [employer] Other XR knee LT 4V* Signed [employer] Other XR knee LT 4V* Patient: Irene Lopez MR#: [employer] Other XR knee LT 4V* [id number] [employer] Other XR knee LT 4V* : 1975 Acct:[id number] [employer] Other XR knee LT 4V* Age/Sex: 46 / F ADM Date: 07/18/21 [employer] Other XR knee LT 4V* [facility]: XDUCLY [facility] Other XR knee LT 4V* Attending Dr: Denisse GRIJALVA [employer] Other XR knee LT 4V* Ordering Provider: VALENTINE Sutherland [employer] Other XR knee LT 4V* Date of Service: 07/18/21 [employer] Other XR knee LT 4V* XR/XR knee LT 4V*: LEFT KNEE PAIN [employer] Other XR knee LT 4V* Copies to: CASPER SutherlandC [employer] Other XR knee LT 4V* Left knee 07/18/2021. [employer] Other XR knee LT 4V* CLINICAL DATA: Left knee pain after injury. [employer] Other XR knee LT 4V* FINDINGS: 4 views of the left knee were obtained. [employer] Other XR knee LT 4V* No acute fracture or dislocation is identified. No other bony abnormality is seen. There is no [employer] Other XR knee LT 4V* suprapatellar effusion. [employer] Other XR knee LT 4V* XR/XR knee LT 4V* [employer] Other XR knee LT 4V* IMPRESSION: No acute bony abnormality or effusion. [employer] Other XR knee LT 4V* Impression dictated by: Benton Tinoco Jr., M.D.07/18/2021 6:01 PM [employer] Other XR knee LT 4V* Dictation Location: [place] [address] [employer] Other XR knee LT 4V* Transcribed By: MARY 07/18/21 1809 [employer] Other XR knee LT 4V* Dictated By: Benton Tinoco Jr, MD 07/18/21 6868 [employer] Other XR knee LT 4V* Signed By: [employer] Other XR knee LT 4V* 07/18/21 1801 [facility] oa [employer] Other Microalbumin (with Creat)on 03-20-2021 mALB <1.2 Low [facility] Comment on above: Result Comment: Unab le to calculate mALB/Crea ratio, mALB is <1.2 mg/dL mALB reference range not established. Performed By: #### m ALBC #### [facility] [address] [place], [place] [id number] UCREA 89 mg/dL Normal 28-217 [facility] Comment on above: Performed By: #### m ALBC #### [facility] [address] [place], [place] [id number] Vital Signs Date Time Vital Sign Value Performing Clinician Facility 04-30-2024 15:41-0500 Body mass index (BMI) [Ratio] 35.15 kg/m2 Gilles Mauricio MD Work Phone: [facility] 04-30-2024 15:41-0500 Body temperature 96.4 [degF] Gilles Mauricio MD Work Phone: [facility] 04-30-2024 15:41-0500 Body weight 104.87 kg Gilles Mauricio MD Work Phone: [facility] 04-30-2024 15:41-0500 Diastolic blood pressure 82 mm[Hg] Gilles Mauricio MD Work Phone: [facility] 04-30-2024 15:41-0500 Heart rate 103 /min Gilles Mauricio MD Work Phone: [facility] 04-30-2024 15:41-0500 SaO2% (BldA) [Mass fraction] 97 % Gilles Mauricio MD Work Phone: [facility] 04-30-2024 15:41-0500 Systolic blood pressure 132 mm[Hg] Gilles Mauricio MD Work Phone: [facility] 04-14-2024 09:21-0500 Body mass index (BMI) [Ratio] 34.64 kg/m2 David Christensen NP Work Phone: [facility] 04-14-2024 09:21-0500 Body temperature 98.6 [degF] David Christensen [employer] Work Phone: [facility] 04-14-2024 09:21-0500 Body weight 103.33 kg David Christensen [employer] Work Phone: [facility] 04-14-2024 09:21-0500 Diastolic blood pressure 78 mm[Hg] David Christensen [employer] Work Phone: [facility] 04-14-2024 09:21-0500 Heart rate 97 /min David Christensen [employer] Work Phone: [facility] 04-14-2024 09:21-0500 SaO2% (BldA) [Mass fraction] 97 % David Christensen [employer] Work Phone: [facility] 04-14-2024 09:21-0500 Systolic blood pressure 122 mm[Hg] David Christensen [employer] Work Phone: [facility] 12-05-2023 15:28-0400 Body height 172.5 cm Jeniffer Briscoe MD Work Phone: [facility] 12-05-2023 15:28-0400 Body mass index (BMI) [Ratio] 35.06 kg/m2 Jeniffer Briscoe MD Work Phone: [facility] 12-05-2023 15:28-0400 Body temperature 98.29 [degF] Jeniffer Briscoe MD Work Phone: [facility] 12-05-2023 15:28-0400 Body weight 104.33 kg Jeniffer Briscoe MD Work Phone: [facility] 12-05-2023 15:28-0400 Diastolic blood pressure 92 mm[Hg] Jeniffer Briscoe MD Work Phone: [facility] 12-05-2023 15:28-0400 Heart rate 106 /min Jeniffer Briscoe MD Work Phone: [facility] 12-05-2023 15:28-0400 Respiratory rate 16 /min Jeniffer Briscoe MD Work Phone: [facility] 12-05-2023 15:28-0400 SaO2% (BldA) [Mass fraction] 100 % Jeniffer Briscoe MD Work Phone: [facility] 12-05-2023 15:28-0400 Systolic blood pressure 146 mm[Hg] Jeniffer Briscoe MD Work Phone: [facility] 10-22-2023 15:02-0400 Body mass index (BMI) [Ratio] 33.75 kg/m2 Kerri Manzanares [employer] Work Phone: [facility] 10-22-2023 15:02-0400 Body weight 100.7 kg Kerri Manzanares [employer] Work Phone: [facility] 10-22-2023 15:02-0400 Diastolic blood pressure 76 mm[Hg] Kerri Manzanares [employer] Work Phone: [facility] 10-22-2023 15:02-0400 Heart rate 78 /min Kerri Manzanares [employer] Work Phone: [facility] 10-22-2023 15:02-0400 Respiratory rate 18 /min Kerri Manzanares [employer] Work Phone: [facility] 10-22-2023 15:02-0400 SaO2% (BldA) [Mass fraction] 98 % Kerri Manzanares [employer] Work Phone: [facility] 10-22-2023 15:02-0400 Systolic blood pressure 130 mm[Hg] Kerri Manzanares [employer] Work Phone: [facility] 10-15-2023 14:15-0400 Blood Pressure Location Reji CASTELLANO [facility] 10-15-2023 14:15-0400 Diastolic blood pressure 98 mm[Hg] Reji CASTELLANO [facility] 10-15-2023 14:15-0400 Heart rate 94 /min Reji CASTELLANO [facility] 10-15-2023 14:15-0400 Respiratory rate 16 /min Reji CASTELLANO [facility] 10-15-2023 14:15-0400 Systolic blood pressure 140 mm[Hg] Reji CASTELLANO [facility] 07-18-2021 18:00-0400 Body height 172.72 cm Denisse Clemente Other [employer] Other 07-18-2021 18:00-0400 Body mass index (BMI) [Ratio] 35.88 kg/m2 Denisse Costamond Other [employer] Other 07-18-2021 18:00-0400 Body temperature 98 [degF] Denisse Clemente Other [employer] Other 07-18-2021 18:00-0400 Body weight 107.05 kg Denisse Clemente Other Acceptd Other 07-18-2021 18:00-0400 Respiratory rate 18 /min Denisse Costamond Other Acceptd Other 07-18-2021 18:00-0400 SaO2% (BldA) [Mass fraction] 99 % Denisse Costamond Other Acceptd Other Encounters Encounter Date Encounter Type Care Provider Facility Start: 05-20-2024 ambulatory Mandy Tejeda Facility:[facility] Start: 05-11-2024 End: 05-11-2024 Telephone encounter Gilles Mauricio MD Work Phone: [facility] Start: 05-03-2024 End: 05-03-2024 Orders Only Gilles Mauricio MD Work Phone: [facility] Comment on above: Acute cystitis witho ut hematuria (Primary Dx) Start: 04-30-2024 End: 04-30-2024 Office outpatient visit 25 minutes Gilles Mauricio MD Work Phone: [facility] Comment on above: Current moderate epi sode of major depressive disorder without prior episode (HCC) ([facility]/HCC) (Primary Dx); Controlled type 2 diabetes mellitus with hyperglycemia, without long-term current use of insulin ([facility]); Anxiety; Essential hypertension ([facility]); Allergic rhinitis due to pollen, unspecified seasonality; Right flank discomfort; Menopause; Hot flashes; Hypertriglyceridemia ([facility]) Start: 04-30-2024 End: 04-30-2024 ambulatory GILLES MAURICIO Not Available Start: 04-30-2024 End: 04-30-2024 Bamboo flowsheet Gilles Mauricio MD Work Phone: [facility] Start: 04-30-2024 End: 04-30-2024 Bamboo flowsheet Gilles Mauricio MD Work Phone: [facility] Start: 04-17-2024 End: 04-17-2024 Orders Only Hilaria Holliday [employer] Work Phone: [facility] Comment on above: Acute non-recurrent pansinusitis (Primary Dx) Start: 04-14-2024 End: 04-14-2024 Bamboo flowsheet David Christensen [employer] Work Phone: [facility] Start: 04-14-2024 End: 04-14-2024 Bamboo flowsheet David A Fito [employer] Work Phone: [facility] Start: 04-14-2024 End: 04-14-2024 Office outpatient visit 15 minutes David Christensen [employer] Work Phone: [facility] Comment on above: Viral URI (Primary D x); Nasal congestion; Cough, unspecified type; Right ear pain Start: 04-14-2024 End: 04-14-2024 ambulatory DAVID A FITO Not Available Start: 12-05-2023 End: 12-05-2023 Office outpatient new 30 minutes Jeniffer Briscoe MD Work Phone: Nicci Goddard [facility] Comment on above: Lymphocytosis (Prima ry Dx) Start: 12-05-2023 ambulatory JENIFFER BRISCOE [facility] Start: 11-29-2023 End: 11-29-2023 ambulatory KERRI MANZANARES [facility] Start: 11-29-2023 End: 11-29-2023 External Result Encounter Kerri Manzanares [employer] Work Phone: [facility] Unsolicited Start: 11-29-2023 End: 11-29-2023 External Result Encounter Kerri Manzanares NP Work Phone: [facility] Unsolicited Start: 11-12-2023 End: 11-12-2023 Orders Only Kerri Manzanares [employer] Work Phone: [facility] Comment on above: Yeast infection (Lexis gilles Dx) Start: 10-22-2023 End: 10-22-2023 Patient encounter status Kerri Manzanares [employer] Work Phone: [facility] Work Phone: Start: 10-22-2023 End: 10-22-2023 Periodic preventive med est patient 40-64yrs Kerri Manzanares NP Work Phone: [facility] Comment on above: Well adult exam (Lexis gilles Dx); Encounter for screening mammogram for malignant neoplasm of breast; Controlled type 2 diabetes mellitus with hyperglycemia, without long-term current use of insulin (CMS/HCC); H/O hysterectomy for benign disease; Hypertriglyceridemia (CMS/HCC); Obesity (BMI 30-39.9); Essential hypertension (CMS/HCC); Anxiety; Insomnia, unspecified type; Current moderate episode of major depressive disorder without prior episode (HCC) (CMS/HCC); Encounter for gynecological examination without abnormal finding; EDWARD inhibitor intolerance; Allergic rhinitis due to pollen, unspecified seasonality Start: 10-22-2023 End: 10-22-2023 ambulatory KERRI MANZANARES Not Available Start: 10-22-2023 End: 10-22-2023 Bamboo flowsheet Kerri Manzanares [employer] Work Phone: [facility] Start: 10-22-2023 End: 10-22-2023 Bamboo flowsheet Kerri Manzanares [employer] Work Phone: [facility] Start: 10-18-2023 End: 10-18-2023 Patient encounter procedure MD Gilles Mauricio Work Phone: [facility] Work Phone: Start: 10-18-2023 End: 10-18-2023 ambulatory MD Gilles Mauricio Work Phone: [facility] Work Phone: Start: 10-15-2023 End: 10-15-2023 ambulatory Reji CASTELLANO Facility:[facility] Start: 10-15-2023 End: 10-15-2023 Patient encounter procedure Reji CASTELLANO [facility] Start: 10-14-2023 End: 10-14-2023 ambulatory REJI CASTELLANO Not Available Start: 10-03-2023 End: 10-03-2023 ambulatory GREGORIO MALDONADO Not Available Start: 10-02-2023 End: 10-02-2023 ambulatory GILLES F LULY Not Available Start: 10-02-2023 End: 10-02-2023 ambulatory GILLES F LULY Not Available Start: 09-26-2023 End: 09-26-2023 ambulatory Gregorio Maldonado [facility] Work Phone: Start: 09-26-2023 End: 09-26-2023 Departed Referred DO Gregorio Maldonado Work Phone: [facility] Work Phone: Start: 08-19-2023 End: 08-19-2023 ambulatory KERRI MANZANARES Not Available Start: 08-06-2023 End: 08-06-2023 ambulatory GREGROIO SEGUNDOBrett Not Available Start: 07-17-2023 End: 07-17-2023 ambulatory KERRI MANZANARES Not Available Start: 06-17-2023 End: 06-17-2023 ambulatory KERRI MANZANARES Not Available Start: 09-25-2021 End: 09-26-[address] ADILSON ROUSSEAU Facility: Start: 07-18-2021 End: 07-18-2021 Patient encounter procedure PEST [employer] PIL[employer]-C Denisse Clemente Work Phone: [facility] Start: 07-18-2021 End: 07-18-2021 ambulatory Denisse Clemente Other Acceptd Other Start: 07-18-2021 Office outpatient ne w 20 minutes Denisse Clemente [facility] Procedures Date Procedure Procedure Detail Performing Clinician Start: 04-30-2024 NOTE Gilles ramirez MD Work Phone: Start: 04-30-2024 Urnls dip stick/tabl et rgnt auto w/o microscopy Gilles Mauricio MD Work Phone: Start: 04-30-2024 Complete blood count with white cell differential, automated Gilles Mauricio MD Work Phone: Start: 04-30-2024 End: 04-30-2024 Comprehensive metabolic panel Gilles Mauricio MD Work Phone: Start: 04-30-2024 Lipid panel Gilles ramirez MD Work Phone: Start: 04-30-2024 TSH W/REFLEX TO FT4 Mar y Heavenly Mauricio MD Work Phone: Start: 04-14-2024 STATUS COVID-19/FLU Pat tobi Christensen [employer] Work Phone: Start: 11-29-2023 Complete blood count with white cell differential, automated Kerri Manzanares [employer] Work Phone: Start: 10-18-2023 Intravenous pyelogram M Kamila Mauricio Work Phone: Start: 10-08-2023 Mammography Kerri Manzanares [employer] Work Phone: Start: 09-27-2023 Colonoscopy Kerri Manzanares [employer] Work Phone: Start: 07-18-2021 Radiologic examinati on of knee [employer] Denisse Clemente Work Phone: Start: 03-02-2019 Lithotripsy using laser Reji CASTELLANO Comment on above: and stent placement. .. Colonoscopy Reji CASTELLANO Hysterectomy Reji CASTELLANO Plan of Treatment Date Care Activity Detail Author Start: 09-26-2033 Screening for malign ant neoplasm of colon [facility] Start: 07-19-2031 DTaP,Tdap and Td Vaccines (3 - Td or Tdap) DTaP,Tdap and Td Vaccines (3 - Td or Tdap) [facility] Start: 10-22-2024 Urine screening for protein Diabetes: Urine Protein Screening [facility] Start: 10-07-2024 Screening for malign ant neoplasm of breast Mammogram [facility] Start: 09-06-2024 Glaucoma screening Diabetes: R etinopathy Screening [facility] Start: 07-28-2024 End: 07-28-2024 Patient encounter procedure 07/28/2024 4:00 PM EDT Office Visit [facility] [address] [facility] [place] [address] Gilles Mauricio MD [address] [facility] [place], [place] [id number] [facility] Start: 07-28-2024 Hemoglobin A1c measurement Diabetes: Hemoglobin A1C [facility] Start: 06-27-2024 Urine screening for protein Diabetes: Urine Protein Screening [facility] Start: 04-30-2024 End: 04-30-2024 Patient encounter procedure [facility] Comment on above: Arrived Start: 04-30-2024 End: 04-30-2025 Bacteria identified in Urine by Culture Urine culture (clean catch) Microbiology Routine Right flank discomfort Expected: 04/30/2024 (Approximate), Expires: 04/30/2025 [facility] Work Phone: Comment on above: Expected: 04/30/2024 (Approximate), Expires: 04/30/2025 Start: 04-23-2024 End: 04-23-2024 Patient encounter procedure 04/23/2024 4:00 PM EST Office Visit [facility] [address] [place] [phone] Kerri Manzanares NP [address] [facility] [place] [address] [facility] Start: 04-14-2024 End: 04-14-2024 Patient encounter procedure 04/14/2024 9:30 AM EST Office Visit [facility] [address] [place] [phone] David Christensen NP [address] [facility] [place] [address] Arrived [facility] Comment on above: Arrived Start: 01-22-2024 Hemoglobin A1c measurement Diabetes: Hemoglobin A1C [facility] Start: 01-02-2024 Hemoglobin A1c measurement Diabetes: Hemoglobin A1C [facility] Start: 11-03-2023 COVID-19 Vaccine ( season) COVID-19 Vaccine ( season) [facility] Start: 11-03-2023 Influenza vaccination [facility] Start: 10-22-2023 End: 10-22-2023 Patient encounter procedure 10/22/2023 3:00 PM EDT Office Visit [facility] [address] [place] [phone] Kerri Manzanares [employer] [address] [facility] [place] [address] Arrived [facility] Comment on above: Arrived Start: 10-22-2023 End: 10-21-2024 CBC W Auto Differential panel - Blood CBC and differential Lab Routine Well adult exam Controlled type 2 diabetes mellitus with hyperglycemia, without long-term current use of insulin (CMS/HCC) Essential hypertension (CMS/HCC) Expected: 10/22/2023 (Approximate), Expires: 10/21/2024 [facility] Work Phone: Comment on above: Expected: 10/22/2023 (Approximate), Expires: 10/21/2024 Start: 10-22-2023 End: 10-21-2024 Comprehensive metabolic 2000 panel - Serum or Plasma Comprehensive metabolic panel Lab Routine Well adult exam Controlled type 2 diabetes mellitus with hyperglycemia, without long-term current use of insulin (CMS/HCC) Essential hypertension (CMS/HCC) Expected: 10/22/2023 (Approximate), Expires: 10/21/2024 [facility] Comment on above: Expected: 10/22/2023 (Approximate), Expires: 10/21/2024 Start: 10-22-2023 End: 10-21-2024 Hemoglobin A1c/Hemoglobin.total in Blood Hemoglobin A1c Lab Routine Controlled type 2 diabetes mellitus with hyperglycemia, without long-term current use of insulin (CMS/HCC) Expected: 10/22/2023 (Approximate), Expires: 10/21/2024 [facility] Comment on above: Expected: 10/22/2023 (Approximate), Expires: 10/21/2024 Start: 10-22-2023 End: 10-21-2024 Lipid 1996 panel - Serum or Plasma Lipid panel Lab Routine Well adult exam Controlled type 2 diabetes mellitus with hyperglycemia, without long-term current use of insulin (CMS/HCC) Essential hypertension (CMS/HCC) Expected: 10/22/2023 (Approximate), Expires: 10/21/2024 [facility] Comment on above: Expected: 10/22/2023 (Approximate), Expires: 10/21/2024 Start: 10-22-2023 End: 10-21-2024 Microalbumin/Creatinine panel in random Urine Microalbumin / creatinine urine ratio Lab Routine Controlled type 2 diabetes mellitus with hyperglycemia, without long-term current use of insulin (CMS/HCC) Expected: 10/22/2023 (Approximate), Expires: 10/21/2024 [facility] Comment on above: Expected: 10/22/2023 (Approximate), Expires: 10/21/2024 Start: 10-22-2023 End: 10-21-2024 THINPREP TIS PAP AND HPV MRNA E6/E7 WITH REFLEX TO HPV 16,18/45 THINPREP TIS PAP AND HPV MRNA E6/E7 WITH REFLEX TO HPV 16,18/45 Pathology and Cytology Routine Encounter for gynecological examination without abnormal finding Expected: 10/22/2023 (Approximate), Expires: 10/21/2024 [facility] Comment on above: Expected: 10/22/2023 (Approximate), Expires: 10/21/2024 Start: 10-22-2023 End: 10-21-2024 Thyrotropin [Units/volume] in Serum or Plasma TSH Lab Routine Controlled type 2 diabetes mellitus with hyperglycemia, without long-term current use of insulin (CMS/HCC) Essential hypertension (CMS/HCC) Anxiety Expected: 10/22/2023 (Approximate), Expires: 10/21/2024 [facility] Comment on above: Expected: 10/22/2023 (Approximate), Expires: 10/21/2024 Start: 12-23-2022 Adult BMI Screening Adult BMI Screen ing [facility] Start: 12-23-2022 Tobacco Screening Tobacco Screening [facility] Start: 1995 Adult BMI Follow Up Plan Adult BMI Follow Up Plan [facility] Start: 1989 Depression Screening Depression Scre ening [facility] Start: 1977 Screening for malign ant neoplasm of colon [facility] Immunizations Immunization Date Immunization Notes Care Provider Fa cilijanel 12-13-2021 SARS-CoV-2 (COVID-19 ) [id number] Reji CASTELLANO [facility] 07-18-2021 tetanus toxoid, reduced diphtheria toxoid, and acellular pertussis vaccine, adsorbed Denisse Chyna Other [facility] 12-18-2020 SARS-CoV-2 (COVID-19 ) mRNA BNT-162b2 vax Reji CASTELLANO [facility] 05-19-2020 SARS-CoV-2 (COVID-19 ) mRNA BNT-162b2 vax Reji CASTELLANO [facility] 04-28-2020 SARS-CoV-2 (COVID-19 ) mRNA BNT-162b2 vax Reji CASTELLANO [facility] 12-26-2007 tetanus toxoid, reduced diphtheria toxoid, and acellular pertussis vaccine, adsorbed Reji CASTELLANO [facility] 03-04-2005 tetanus toxoid, reduced diphtheria toxoid, and acellular pertussis vaccine, adsorbed David Christensen [employer] Work Phone: [facility] NEGATED: Highlighted row has not occurred!02-27-2019 influenza virus vaccine, live, attenuated, for intranasal use [employer] [facility] Payers Date Payer Category Payer Self-pay [id number] 2023 Private Health Insurance [employer] [id number] 2023 Unknown [id number] 1.13.693.2. [id number] 2023 Unknown [id number] 1977 Unknown [id number] 2.16.840.1.500960.3.579.2. 593 1977 Unknown [id number] 2.16.840.1.769890.3.579.2. 1286 1977 Unknown [id number] 2.16.840.1.050931.3.579.2. 1259 1977 Unknown [id number] 2.16.840.1.682511.3.579.2. 1259 1977 Unknown [id number] 2.16.840.1.371780.3.579.2. 1259 1977 Unknown [id number] 2.16.840.1.827547.3.579.2. 1258 1977 Unknown [id number] 2.16.840.1.445305.3.579.2. 9 1977 Unknown [id number] 2.16.840.1.861627.3.579.2. 9 1977 Unknown [id number] 2.16.840.1.049504.3.579.2. 1259 1977 Unknown [id number] 2.16.840.1.889290.3.579.2. 1258 1977 Unknown [id number] 2.16.840.1.638672.3.579.2. 9 1977 Unknown [id number] 2.16.840.1.958468.3.579.2. 1259 1977 Unknown [id number] 2.16.840.1.918015.3.579.2. 1259 1977 Unknown [id number] 2.16.840.1.347328.3.579.2. 9 1977 Unknown [id number] 2.16.840.1.256452.3.579.2. 727 1977 Unknown [id number] 2.16.840.1.103170.3.579.2. 727 1959 Blue Cross Blue Shield [id number] 2..840.1.808072.19 Unknown [employer] BC/BS [id number] Unknown [id number] 2..840.1.912642.3.579.2. 531 Unknown [id number] 2.840.1.339523.3.579.2. 531 Social History Date Type Detail Facility Tobacco smoking stat us DEIS Unknown if ever smoked [facility] Work Phone: Start: 1975 Sex Assigned At Female F [facility] Start: 12-17-2022 End: 04-25-2024 Sex Assigned At [facility] Start: 01-19-2018 End: 07-23-2022 Tobacco smoking status NHIS Never smoked tobacco (finding) [facility] Tobacco smoking status Never [facility] Start: 12-23-2021 End: 07-23-2022 Tobacco use and exposure Smokeless tobacco non-user [facility] Start: 10-22-2023 End: 04-30-2024 Alcoholic beverage intake Current drinker of alcohol (finding) [facility] Start: 10-22-2023 End: 04-25-2024 Alcoholic beverage intake [facility] Within the last year , have you been afraid of your partner or ex-partner? No [facility] Are you now , , , , never or living with a partner? [facility] How often to you hav e a drink containing alcohol? 2-4 times a month [facility] How many standard drinks containing alcohol do you have on a typical day? 1 or 2 [facility] How often do you hav e 6 or more drinks on 1 occasion? Never [facility] How hard is it for y ou to pay for the very basics like food, housing, medical care, and heating Not very hard [facility] Do you feel stress - tense, restless, nervous, or anxious, or unable to sleep at night because your mind is troubled all the time - these days [OSQ] To some extent [facility] (I/We) worried [facility] (my/our) food would run out before (I/we) got money to buy more. Never true [facility] Start: 06-17-2023 End: 04-14-2024 Alcohol Comment Once a month if that [facility] Start: 1975 Sex assigned at Not on file [facility] How often to you hav e a drink containing alcohol? Monthly or less [facility] Start: 12-05-2023 Alcoholic beverage intake Ex-drinker (finding) [facility] [employer] [facility] Equipment Procedure Code Equipment Code Equipment Origin al Text Equipment Identifier Dates [id number] Start: 10-23-2023 End: 10-22-2024 1 Application in the morning and 1 Application before bedtime. [id number] Start: 10-23-2023 Goals Date Patient Goal Desired Activity /State Personal health goal Functional Status Date Assessment Result Facility 10-15-2023 Functional Status N/A [facility] Clinical Notes 05-02-2014 to 05-11-2024 Telephone Encounter - Michael Villa - 05/11/2024 1:57 PM EDTTelephone Encounter - Michael Villa - 05/11/2024 1:57 PM EDKwabena Mauricio MD - 04/30/2024 4:00 PM Yara Briscoe MD - 12/05/2023 3:30 PM EDT Note Date & Type Note Facility 05-11-2024 Telephone encounter Note Irene called - referral to urologist is scheduling a month out.. she is asking if there is somewhere else she can be referred to that she would be able to get in sooner ? Irene [phone] [facility] 05-11-2024 Miscellaneous Notes Irene called - referral to urologist is scheduling a month out.. she is asking if there is somewhere else she can be referred to that she would be able to get in sooner ? Irene [phone] documented in this encounter [facility] 04-30-2024 History of Presen t illness Narrative Images from the original note were not included. Irene Lopez is a 49 y.o. female presents with chief complaint of Follow-up HPI: HPI History of Present Illness The patient presents for a routine checkup. She reports experiencing nausea, which she attributes to her current medication regimen. She has been taking Ozempic 0.5 mg on Saturday nights due to her weekend off schedule. Despite a previous reduction in dosage, the nausea persists, although at a less severe level. Additionally, she experiences alternating episodes of constipation and diarrhea, which she believes may be related to her Ozempic use. She is seeking an alternative treatment plan. Her sleep and blood pressure medications are effective. She continues to take metoprolol twice daily. She maintains an active lifestyle and adheres to a healthy diet. She supplements with Centrum, which contains vitamin D. She is not currently on control pills or Augmentin. She reports no respiratory issues or chest pain. She is requesting an x-ray to evaluate the status of her kidney stones, as she had a similar procedure done 6 months ago. At that time, the right-sided stones had resolved, but the left-sided ones persisted. She is uncertain if her symptoms are due to her hysterectomy, medication, or menopause. She experiences hot flashes and night sweats, even though she still has her ovaries. She underwent a hysterectomy in 2014. She has previously tried medication for hot flashes but does not recall the name or its effectiveness. Her depression and stress levels have improved. She experienced a difficult period when her children moved out, but she now communicates with them regularly. She finds support in her and does not feel the need for additional counseling. 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 MEDICATIONS Current: Metoprolol, Centrum, Ozempic. Past: Augmentin. Lab Results Component Value Date HGBA1C 5.9 04/30/2024 SUBJECTIVE: MEDICATIONS: Current Outpatient Medications Medication Instructions atorvastatin (LIPITOR) 10 mg, Oral, Daily fluticasone (Flonase) 50 MCG/ACT nasal spray 1 spray, Each Nostril, Daily, Shake gently. Before first use, prime pump. After use, clean tip and replace cap. glucose blood test strip Use as instructed Lancets misc 1 Application, Does not apply, 2 times daily loratadine (ALLERGY) 10 mg, Oral, Daily metFORMIN (GLUCOPHAGE) 500 mg, Oral, 2 times daily with meals metoprolol tartrate (LOPRESSOR) 25 mg, Oral, 2 times daily Ozempic (0.25 or 0.5 MG/DOSE) 0.5 mg, Injection, Weekly QUEtiapine (SEROQUEL) 25 mg, Oral, Nightly venlafaxine XR (EFFEXOR XR) 150 mg, Oral, Daily I have reviewed and reconciled the history and medication list with the patient today. REVIEW OF SYMPTOMS: Review of Systems Respiratory: Negative. Cardiovascular: Negative. OBJECTIVE: Visit Vitals BP 132/82 (BP Location: Right arm, Patient Position: Sitting, BP Cuff Size: Large adult) Pulse 103 Temp 96.4 F (Tympanic) Wt 231 lb 3.2 oz SpO2 97% BMI 35.15 kg/m Smoking Status Never BSA 2.24 m Physical Exam Constitutional: Appearance: Normal appearance. She is normal weight. HENT: Head: Normocephalic and atraumatic. Nose: Nose normal. Mouth/Throat: Mouth: Mucous membranes are moist. Eyes: Pupils: Pupils are equal, round, and reactive to light. Cardiovascular: Rate and Rhythm: Normal rate and regular rhythm. Heart sounds: No murmur heard. Pulmonary: Effort: Pulmonary effort is normal. Breath sounds: Normal breath sounds. No wheezing or rhonchi. Musculoskeletal: General: No swelling. Cervical back: Normal range of motion and neck supple. Right lower leg: No edema. Left lower leg: No edema. Skin: General: Skin is warm and dry. Findings: No rash. Neurological: Mental Status: She is alert and oriented to person, place, and time. Sensory: No sensory deficit. Gait: Gait normal. Psychiatric: Mood and Affect: Mood normal. Thought Content: Thought content normal. Judgment: Judgment normal. ASSESSMENT AND PLAN: Assessment/Plan Problem List Items Addressed This Visit Allergic rhinitis Relevant Medications fluticasone (Flonase) 50 MCG/ACT nasal spray Anxiety Relevant Medications venlafaxine XR (Effexor XR) 150 MG 24 hr capsule Controlled type 2 diabetes mellitus with hyperglycemia, without long-term current use of insulin ([facility]) Relevant Medications Dulaglutide (Trulicity) 0.75 MG/0.5ML solution auto-injector Other Relevant Orders POCT glycosylated hemoglobin (Hb A1C) docked device (Completed) Current moderate episode of major depressive disorder without prior episode (HCC) ([facility]) - Primary Relevant Orders Ambulatory referral to Psychology TSH W/REFLEX TO FT4 (Completed) Essential hypertension (CMS/[facility]) Relevant Medications metoprolol tartrate (Lopressor) 25 MG tablet Other Relevant Orders Comprehensive metabolic panel (Completed) CBC and differential (Completed) Lipid panel (Completed) Hypertriglyceridemia ([facility]) Other Visit Diagnoses Right flank discomfort Relevant Orders Urine culture (clean catch) Urinalysis with reflex microscopic (catheter) (Completed) Menopause Relevant Orders FSH (Completed) Hot flashes Relevant Medications cloNIDine (Catapres) 0.1 MG tablet Assessment & Plan 1. Diabetes mellitus. Her A1c level is commendably at 5.9. She has been experiencing significant nausea with Ozempic 0.5 mg, even after reducing the dose from 0.25 mg. A prescription for Trulicity will be sent to [email or web address], pending insurance approval. She is advised to discontinue Ozempic until Trulicity is available. 2. Depression. She reports feeling better overall but still experiences occasional bouts of sadness due to her children living far away. A referral to a counselor will be made to provide additional support. 3. Menopause. She is likely experiencing menopausal symptoms, including hot flashes and night sweats. Clonidine will be added to her bedtime regimen to help manage these symptoms. Blood work will be ordered to further evaluate her hormonal status. 4. Hypertension. She will continue her current blood pressure medication, metoprolol, taken twice daily. 5. Kidney stones. An x-ray will be ordered to assess the presence of any remaining kidney stones. A urine sample will also be collected for further analysis. Follow-up The patient will follow up in 3 months. PROCEDURE The patient underwent a hysterectomy in 2014. documented in this encounter [facility] 04-17-2024 History of Presen t illness Narrative Prescription sent documented in this encounter [facility] 04-14-2024 History of Presen t illness Narrative Images from the original note were not included. Irene Lopez is a 49 y.o. female presents with chief complaint of URI HPI: HPI History of Present Illness The patient presents for evaluation of cough, postnasal drainage, and diarrhea. She reports experiencing postnasal drainage and a persistent cough, which has been severe enough to disrupt her sleep. She was up at 2:00 AM and again at 8:00 AM. The onset of these symptoms was on Saturday, with a significant exacerbation on Saturday. 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 She reports no fevers but does experience a sore throat when coughing. She also reports no wheezing or shortness of breath. She woke up with a migraine yesterday. She has attempted to manage her symptoms with yovw-rpr-ajhadsk medications, including Flonase and loratadine, but these have provided minimal relief. Additionally, she reports episodes of diarrhea, which she attributes to her use of Ozempic. This week, she has experienced three such episodes, an increase from her usual frequency of one to two times per week. 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 MEDICATIONS Current: Ozempic, Flonase, loratadine SUBJECTIVE: MEDICATIONS: ALLERGIES Current Outpatient Medications Medication Instructions atorvastatin (LIPITOR) 10 mg, Oral, Daily fluticasone (Flonase) 50 MCG/ACT nasal spray 1 spray, Each Nostril, Daily, Shake gently. Before first use, prime pump. After use, clean tip and replace cap. glucose blood test strip Use as instructed Lancets misc 1 Application, Does not apply, 2 times daily loratadine (ALLERGY) 10 mg, Oral, Daily metFORMIN (GLUCOPHAGE) 500 mg, Oral, 2 times daily with meals metoprolol tartrate (LOPRESSOR) 25 mg, Oral, 2 times daily Ozempic (0.25 or 0.5 MG/DOSE) 0.5 mg, Injection, Weekly QUEtiapine (SEROQUEL) 25 mg, Oral, Nightly venlafaxine XR (EFFEXOR XR) 150 mg, Oral, Daily Allergies Allergen Reactions Levonorgestrel-Ethinyl Estrad Seasonal Ic [Octacosanol] PAST MEDICAL HISTORY: SOCIAL HISTORY SURGICAL HISTORY: Past Medical History: Diagnosis Date Allergic Allergic rhinitis When I was little Anxiety Cataract 10/2022 Depression ([facility]) Diabetes mellitus ([facility]) DUB (dysfunctional uterine bleeding) Hypertension ([facility]) Kidney stone Plantar fasciitis Seasonal allergies Varicella Social History Tobacco Use Smoking status: Never Smokeless tobacco: Never Substance Use Topics Alcohol use: Yes Alcohol/week: 1.0 standard drink of alcohol Types: 1 Standard drinks or equivalent per week Comment: Once a month if that Drug use: Never Past Surgical History: Procedure Laterality Date CYSTOSCOPY Left 2018 with lithotripsy for renal stone HYSTERECTOMY 10/2014 PARTIAL HYSTERECTOMY 05/2014 REVIEW OF SYMPTOMS: Review of Systems Constitutional: Positive for fatigue. Negative for fever. HENT: Positive for congestion, rhinorrhea, sinus pain and sore throat. Respiratory: Positive for cough, shortness of breath and wheezing. Cardiovascular: Negative for chest pain, palpitations and leg swelling. Gastrointestinal: Negative for abdominal pain. All other systems reviewed and are negative. OBJECTIVE: There were no vitals filed for this visit. Physical Exam Vitals and nursing note reviewed. Constitutional: Appearance: Normal appearance. HENT: Head: Normocephalic and atraumatic. Right Ear: Tympanic membrane normal. Left Ear: Tympanic membrane normal. Nose: Congestion present. Right Sinus: Frontal sinus tenderness present. Left Sinus: Frontal sinus tenderness present. Mouth/Throat: Mouth: Mucous membranes are moist. Pharynx: Posterior oropharyngeal erythema present. Tonsils: No tonsillar exudate. Cardiovascular: Rate and Rhythm: Normal rate and regular rhythm. Pulses: Normal pulses. Heart sounds: Normal heart sounds. Pulmonary: Effort: Pulmonary effort is normal. Breath sounds: Normal breath sounds. Musculoskeletal: Cervical back: Normal range of motion and neck supple. Skin: General: Skin is warm and dry. Capillary Refill: Capillary refill takes less than 2 seconds. Neurological: Mental Status: She is alert and oriented to person, place, and time. ASSESSMENT AND PLAN: Assessment/Plan Diagnoses and all orders for this visit: Viral URI Most likely viral in nature, will need to run its course. Educated patient viral infections such as colds/flus do not respond to abx and typically do not begin to improve until 7-10 days into the illness. Discussed symptomatic treatment with patient. Humidifier at bedside to moisten area. Push fluids. Rest. Good handwashing. Follow up if symptoms do not improve. To ER for markedly worsening symptoms.\ Nasal congestion - STATUS COVID-19/FLU Cough, unspecified type - STATUS COVID-19/FLU Right ear pain - STATUS COVID-19/FLU No follow-ups on file. documented in this encounter [facility] 12-05-2023 History of Presen t illness Narrative Images from the original note were not included. [facility] 12/05/23 Irene Lopez is a 48 y.o. year old female seen today in the oncology clinic. Chief Complaint Patient presents with Leukocytosis Consult History of Present Illness: Mrs. Lopez is a 48 y.o. female who was referred to Hematology Clinic for persistent leukocytosis chronic fatigue. Patient's most recent blood work November 2023 showed white count is up to 11 K, absolute lymphocyte count is over 4 K. she denies any recent infection. No steroid exposure. She has significant stress at home. No spleen surgery. Denies any significant weight loss no fever chills or night sweats. No new constitutional symptoms. History reviewed. No pertinent past medical history. Past Surgical History: Procedure Laterality Date COLONOSCOPY KIDNEY STONE SURGERY PARTIAL HYSTERECTOMY Family History Problem Relation Age of Onset Hypertension Mother Hypertension Father Social History Socioeconomic History Marital status: Tobacco Use Smoking status: Never Smokeless tobacco: Never Vaping Use Vaping status: Never Used Substance and Sexual Activity Alcohol use: Not Currently Drug use: Never Sexual activity: Defer Social Determinants of Health Financial Resource Strain: Low Risk (12/17/2022) Received from [facility] Overall Financial Resource Strain (CARDIA) Difficulty of Paying Living Expenses: Not very hard Food Insecurity: No Food Insecurity (12/05/2023) Hunger Screening Food Insecurity - Worry: Never True Food Insecurity - Inability: Never True Transportation Needs: No Transportation Needs (12/17/2022) Received from [facility] PRAPARE - Transportation Lack of Transportation (Medical): No Lack of Transportation (Non-Medical): No Physical Activity: Insufficiently Active (12/17/2022) Received from [facility] Exercise Vital Sign Days of Exercise per Week: 1 day Minutes of Exercise per Session: 10 min Stress: Stress Concern Present (12/17/2022) Received from [facility] [employer] [place] [employer] - Occupational Stress Questionnaire Feeling of Stress : To some extent Social Connections: Moderately Isolated (12/17/2022) Received from [facility] Social Connection and Isolation Panel [NHANES] Frequency of Communication with Friends and Family: Once a week Frequency of Social Gatherings with Friends and Family: Once a week Attends [employer] Services: 1 to 4 times per year Active Member of Clubs or Organizations: No Attends Club or Organization Meetings: Never Marital Status: Interpersonal Safety: Not At Risk (12/17/2022) Received from [facility] Humiliation, Afraid, Rape, and Kick questionnaire Fear of Current or Ex-Partner: No Emotionally Abused: No Physically Abused: No Sexually Abused: No Housing Instability: Low Risk (12/17/2022) Received from [facility] Housing Stability Vital Sign Unable to Pay for Housing in the Last Year: No Number of Places Lived in the Last Year: 1 Unstable Housing in the Last Year: No Allergies Allergen Reactions Seasonale (91) [Levonorgestrel-Ethinyl Estrad] Medication List Accurate as of December 05, 2023 4:19 PM. If you have any questions, ask your nurse or doctor. Medications Continued This Visit atorvastatin 10 mg tablet Refills: 0 Dose: 10 mg Commonly known as: LIPITOR loratadine 10 mg tablet Refills: 0 Dose: 10 mg Commonly known as: CLARITIN metFORMIN 500 mg tablet Refills: 0 Dose: 500 mg Commonly known as: GLUCOPHAGE metoprolol tartrate 25 mg tablet Refills: 0 Dose: 25 mg Commonly known as: LOPRESSOR iisqsukq-xuiw-WR-calcium &mins 9 mg iron-400 mcg tablet Refills: 0 Dose: 1 tablet Commonly known as: THERAGRAN-M ONETOUCH DELICA PLUS LANCET 33 gauge misc Refills: 0 Generic drug: lancets OZEMPIC 0.25 mg or 0.5 mg (2 mg/3 mL) pen injector Refills: 0 Dose: 0.5 mg Generic drug: semaglutide QUEtiapine 25 mg tablet Refills: 0 Dose: 25 mg Commonly known as: SEROquel venlafaxine XR 150 mg 24 hr capsule Refills: 0 Dose: 150 mg Commonly known as: EFFEXOR-XR Review of Symptoms: Review of Systems ECO- Symptomatic; fully ambulatory Physical Exam: General: Well appearing, in no acute distress. Vitals: BP (!) 146/92 Pulse 106 Temp 36.8 C (98.3 F) (Oral) Resp 16 Ht 172.5 cm (5' 7.91 ) Wt 104.3 kg (230 lb) SpO2 100% BMI 35.06 kg/m Body mass index is 35.06 kg/m . Eyes: No icterus, no conjuctival erythema ENT: Pharyngeal mucosa was moist without exudate and inflammation or ulcerations. Tongue was midline and appeared normal.Gums were unremarkable. Lymph nodes: No palpable adenopathy Neck: Supple. There were no masses, tenderness. Trachea was midline. Respiratory: Respirations were non-labored. Lungs were clear to auscultation. There was no dullness to percussion. Cardiac: Regular rate and rhythm, S1 and S2 sounds were normal. There were no rubs or gallops. Abdomen: Soft, non-tender, Nondistended. Bowel sounds audible in all four quadrants. There were no palpable masses. The liver and spleen were not enlarged. Extremities: There was no clubbing, Cyanosis, edema. Skin: There was no obvious rashes, bruising or ecchymosis. Back exam: No palpable tenderness was appreciated. Neurologic: There was no unilateral weakness. Mood and affect: Normal. Recent Imaging: No results found. Recent Labs: Recent Results (from the past 336 hour(s)) CBC auto differential Collection Time: 11/29/23 4:08 PM Result Value Ref Range White Blood Cells 11.8 (H) 4.0 - 11.0 X10E9/L RBC count 4.25 3.80 - 5.20 X10E12/L Hemoglobin 13.2 11.7 - 15.5 g/dL Hematocrit 39.0 35 - 47 % MCV 92 80 - 100 fL MCH 31.1 27 - 34 pg MCHC 33.9 32 - 36 g/dL RDW 13.6 11.5 - 15.0 % Platelets 312 150 - 450 X10E9/L MPV 9.4 7 - 12 fL % neutrophils 55.8 % % lymphocytes 34.1 % % monocytes 8.0 % % eosinophils 1.7 % % Basophils 0.4 % Neutrophils Absolute (A) 6.6 1.5 - 6.6 X10E9/L Lymphocytes Absolute 4.0 (H) 1.0 - 3.5 X10E9/L Monocytes Absolute 0.9 0 - 0.9 X10E9/L Eosinophils Absolute 0.2 0.0 - 0.4 X10E9/L Basophils Absolute 0.0 0.0 - 0.2 X10E9/L Diagnosis Problem list: Problem List Items Addressed This Visit Immune and Lymphatic Lymphocytosis - Primary Impression: Chronic leukocytosis predominantly lymphocytes Plan: I reviewed the patient's blood work from known since 2020. Her WBC ranges between 11-14. Hemoglobin and platelet counts are within normal range. Differential showed elevated absolute lymphocyte count up to 4 K. Back in 2020, patient has 1 incidents with leukocytosis with WBC up to 14 K and differential showed 4.5 K absolute lymphocyte counts. My clinical suspicion for acute leukemia is low. Possible reason for fatigue could be related to medication such as Seroquel use or beta-marilou exposure. No further workup warranted at this point. Consider flow cytometry to rule out monoclonal B lymphocytosis (MBL) if absolute lymphocyte count is over 5 K for 2 consecutive times. Follow-up with hematology as needed. Thank you. Jeniffer Briscoe MD Please note that portions of this note were generated using voice recognition M*Modal dictation software. Although every effort was made to ensure the accuracy of this automated stretcher leveler operator, some errors in stretcher leveler operator may have occurred. CC: Patient Care Team: Gilles Mauricio MD as PCP - General (Family Medicine) Jeniffer Briscoe MD as Consulting Physician (Hematology) CHANDLER Russell as Referring Physician (Nurse Practitioner) PCP:Gilles Mauricio Referring MD: Gilles Mauricio MD documented in this encounter [facility] 10-22-2023 History of Presen t illness Narrative Images from the original note were not included. Irene Lopez is a 48 y.o. female presents with chief complaint of Annual Exam HPI: Well Adult Physical Patient here for a comprehensive physical exam.The patient reports no problems Do you take any herbs or supplements that were not prescribed by a doctor? no Are you taking calcium supplements? no Are you taking aspirin daily? no Last 2019 SUBJECTIVE: MEDICATIONS: ALLERGIES Current Outpatient Medications Medication Instructions atorvastatin (LIPITOR) 10 mg, Oral, Daily loratadine (ALLERGY) 10 mg, Oral, Daily metFORMIN (Glucophage) 500 MG tablet TAKE 1 TABLET IN THE MORNING AND 1 TABLET IN THE EVENING WITH MEALS metoprolol tartrate (LOPRESSOR) 25 mg, Oral, 2 times daily Ozempic, 0.25 or 0.5 MG/DOSE, 2 MG/3ML solution pen-injector INJECT 0.5 MG UNDER THE SKIN ONCE WEEKLY QUEtiapine (SEROQUEL) 25 mg, Oral, Nightly venlafaxine XR (EFFEXOR XR) 150 mg, Oral, Daily Allergies Allergen Reactions Seasonal Ic [Octacosanol] PAST MEDICAL HISTORY: SOCIAL HISTORY SURGICAL HISTORY: Past Medical History: Diagnosis Date Allergic Allergic rhinitis When I was little Anxiety Cataract 10/2022 Depression ([facility]) Diabetes mellitus ([facility]) DUB (dysfunctional uterine bleeding) Hypertension ([facility]) Kidney stone Plantar fasciitis Seasonal allergies Varicella Social History Tobacco Use Smoking status: Never Smokeless tobacco: Never Substance Use Topics Alcohol use: Yes Alcohol/week: 1.0 standard drink of alcohol Types: 1 Standard drinks or equivalent per week Comment: Once a month if that Drug use: Never Past Surgical History: Procedure Laterality Date CYSTOSCOPY Left 2018 with lithotripsy for renal stone HYSTERECTOMY 10/2014 PARTIAL HYSTERECTOMY 05/2014 REVIEW OF SYMPTOMS: Review of Systems Constitutional: Negative. HENT: Negative. Eyes: Negative. Respiratory: Negative. Cardiovascular: Negative. Gastrointestinal: Negative. Genitourinary: Negative. Musculoskeletal: Negative. Skin: Negative. Neurological: Negative. Psychiatric/Behavioral: Negative. All other systems reviewed and are negative. Hematological: Negative. Endocrine: Negative. Allergic/Immunologic: Negative. OBJECTIVE: Vitals: 10/22/23 1502 BP: 130/76 Pulse: 78 Resp: 18 SpO2: 98% Physical Exam Vitals reviewed. Constitutional: Appearance: Normal appearance. HENT: Head: Normocephalic and atraumatic. Right Ear: Tympanic membrane normal. Left Ear: Tympanic membrane normal. Nose: Nose normal. Mouth/Throat: Mouth: Mucous membranes are moist. Pharynx: Oropharynx is clear. Eyes: Pupils: Pupils are equal, round, and reactive to light. Cardiovascular: Rate and Rhythm: Normal rate and regular rhythm. Heart sounds: Normal heart sounds. Pulmonary: Effort: Pulmonary effort is normal. Breath sounds: Normal breath sounds. Chest: Comments: No breast masses Abdominal: General: Bowel sounds are normal. Palpations: Abdomen is soft. Genitourinary: Comments: Normal pelvic exam with absent uterus Musculoskeletal: General: Normal range of motion. Cervical back: Normal range of motion. Skin: General: Skin is warm and dry. Neurological: General: No focal deficit present. Mental Status: She is alert. Psychiatric: Mood and Affect: Mood normal. ASSESSMENT AND PLAN: Assessment/Plan Diagnoses and all orders for this visit: Well adult exam - CBC and differential; Future - Comprehensive metabolic panel; Future - Lipid panel; Future Healthy diet and keep active. Annual eye and dental exam. screen labs, cancer screens and vaccines reviewed an updated as needed. Encounter for screening mammogram for malignant neoplasm of breast Controlled type 2 diabetes mellitus with hyperglycemia, without long-term current use of insulin (CMS/HCC) - CBC and differential; Future - Comprehensive metabolic panel; Future - Lipid panel; Future - Microalbumin / creatinine urine ratio; Future - Hemoglobin A1c; Future - TSH; Future - atorvastatin (Lipitor) 10 MG tablet; Take 1 tablet (10 mg) by mouth Daily - metFORMIN (Glucophage) 500 MG tablet; Take 1 tablet (500 mg) by mouth in the morning and 1 tablet (500 mg) in the evening. Take with meals. - Semaglutide,0.25 or 0.5MG/DOS, (Ozempic, 0.25 or 0.5 MG/DOSE,) 2 MG/3ML solution pen-injector; Inject 0.5 mg as directed 1 (one) time per week Diabetic protocols reviewed. Discussed and updated current management plan. Addressed barriers to care, diet, exercise plan and blood sugar testing. Education provided for mediations. Discussed complications which could include blindness, heart disease and kidney disease. Goal of A1C less then 7 and Blood pressure less then 130/80. Take the 0.5 mg dose of ozempic H/O hysterectomy for benign disease Hypertriglyceridemia (CMS/HCC) Continue to follow a low fat diet. Keep active. Add more fruits and vegetable in diet. Obesity (BMI 30-39.9) Congrats on slow continued weight loss Essential hypertension (CMS/HCC) - CBC and differential; Future - Comprehensive metabolic panel; Future - Lipid panel; Future - TSH; Future - metoprolol tartrate (Lopressor) 25 MG tablet; Take 1 tablet (25 mg) by mouth in the morning and 1 tablet (25 mg) before bedtime. Discussed current management plan and goal BP less then 130/80. Discussed diet, exercise and complications of uncontrolled blood pressure. Importance of weight management with a goal BMI less then 27 discussed. Barriers to care and medication compliance discussed. Patient voices understanding of meds. Anxiety - TSH; Future - venlafaxine XR (Effexor XR) 150 MG 24 hr capsule; Take 1 capsule (150 mg) by mouth Daily Stable with current treatment continue same Insomnia, unspecified type - QUEtiapine (SEROquel) 25 MG tablet; Take 1 tablet (25 mg) by mouth at bedtime stable Current moderate episode of major depressive disorder without prior episode (HCC) (CMS/HCC) stable Encounter for gynecological examination without abnormal finding - THINPREP TIS PAP AND HPV MRNA E6/E7 WITH REFLEX TO HPV 16,18/45; Future EDWARD inhibitor intolerance Allergic rhinitis due to pollen, unspecified seasonality - loratadine (Allergy) 10 MG tablet; Take 1 tablet (10 mg) by mouth Daily stable No follow-ups on file. documented in this encounter [facility] 10-15-2023 Hospital Discharg e instructions Patient Education 10/15/2023 14:35:38 Intravenous Pyelogram Intravenous Pyelogram An intravenous pyelogram is an X-ray of the urinary tract. The urinary tract is the system through which urine travels. This tract includes the kidneys, ureters, and bladder. An intravenous pyelogram can help your health care provider find problems, such as: Kidney stones. Bladder stones. An enlarged prostate. Tumors. Tell a health care provider about: Any allergies you have. All medicines you are taking, including vitamins, herbs, eye drops, creams, and xoqw-nec-tzhurot medicines. Any problems you or family members have had with anesthetic medicines. Any blood disorders you have. Any surgeries you have had. Any medical conditions you have. Whether you are or may be . What are the risks? Generally, this is a safe procedure. However, problems may occur, including: Nausea. An allergic reaction to the dye that is used during the procedure. What happens before the procedure? Follow instructions from your health care provider about eating or drinking restrictions. Follow instructions from your health care provider about preparing for the test by taking an oral bowel prep. Ask your health care provider about changing or stopping your regular medicines. This is especially important if you are taking diabetes medicines or blood thinners. You may need to remove glasses, jewelry, and any other metal objects. You may be asked to put on a hospital gown. What happens during the procedure? You will lie down on an exam table. An IV will be inserted into one of your veins. A contrast dye will be injected through the IV. This dye will help your health care provider see the urinary tract better on the X-rays. When the dye enters your body, you may feel warm or have a strange taste in your mouth. The feeling will not last long. A mobile sales technician will take X-rays. To make the X-rays clearer: ?Pressure may be applied to your abdomen. ?You may be asked not to move for long periods of time. ?You may be asked to change positions. You may be asked to empty your bladder before the final X-ray is taken. The procedure may vary among health care providers and hospitals. What can I expect after procedure? You may feel weak from not eating or drinking. You may return to your normal activities right after the procedure. You may safely drive home right after the procedure. Follow these instructions at home: Return to your normal activities as told by your health care provider. Ask your health care provider what activities are safe for you. Drink enough fluid to keep your urine pale yellow. This will help flush out the dye in your body. Take krbr-zcp-syydhzj and prescription medicines only as told by your health care provider. It is up to you to get the results of your procedure. Ask your health care provider, or the department that is doing the procedure, when your results will be ready. Keep all follow-up visits as told by your health care provider. This is important. Contact a health care provider if: You start urinating less than you usually do. Get help right away if: You feel nauseous or you vomit. You have itching or itchy, red, swollen areas on the skin (hives). You have trouble breathing. Your throat swells. You have chest pain. You have chills or a fever. Summary An intravenous pyelogram is an X-ray of the urinary tract. It is used to help your health care provider find problems such as kidney or bladder stones, an enlarged prostate, or tumors. This is a safe procedure. However, problems may occur, including nausea or an allergic reaction to the dye that is used. Follow instructions from your health care provider about eating and drinking. Ask if you need to change or stop any medicines you are taking. During the procedure, a mobile sales technician will insert an IV into one of your veins, inject a contrast dye, and then take X-rays of your abdomen. You may resume normal activities after the procedure. Get help right away if you have nausea, itchy skin, trouble breathing, swelling in your throat, chest pain, or fever. This information is not intended to replace advice given to you by your health care provider. Make sure you discuss any questions you have with your health care provider. Document Revised: 11/01/2021 Document Reviewed: 03/25/2019 [employer] Patient Education 2022 [employer]. 10/15/2023 14:35:24 Laser Therapy for Kidney Stones Laser Therapy for Kidney Stones Laser therapy for kidney stones is a procedure to break up small, hard mineral deposits that form in the kidney (kidney stones). The procedure is done using a device that produces a focused beam of light (laser). The laser breaks up kidney stones into pieces that are small enough to be passed out of the body through urination or removed from the body during the procedure. You may need laser therapy if you have kidney stones that are painful or block your urinary tract. This procedure is done by inserting a tube (ureteroscope) into your kidney through the urethral opening. The urethra is the part of the body that drains urine from the bladder. In women, the urethra opens above the vaginal opening. In men, the urethra opens at the tip of the penis. The ureteroscope is inserted through the urethra, and surgical instruments are moved through the bladder and the muscular tube that connects the kidney to the bladder (ureter) until they reach the kidney. Tell a health care provider about: Any allergies you have. All medicines you are taking, including vitamins, herbs, eye drops, creams, and ppme-iro-znohnqa medicines. Any problems you or family members have had with anesthetic medicines. Any blood disorders you have. Any surgeries you have had. Any medical conditions you have. Whether you are or may be . What are the risks? Generally, this is a safe procedure. However, problems may occur, including: Infection. Bleeding. Allergic reactions to medicines. Damage to the urethra, bladder, or ureter. Urinary tract infection (UTI). Narrowing of the urethra (urethral stricture). Difficulty passing urine. Blockage of the kidney caused by a fragment of kidney stone. What happens before the procedure? Medicines Ask your health care provider about: ?Changing or stopping your regular medicines. This is especially important if you are taking diabetes medicines or blood thinners. ?Taking medicines such as aspirin and ibuprofen. These medicines can thin your blood. Do not take these medicines unless your health care provider tells you to take them. ?Taking flku-apc-wzwyhyx medicines, vitamins, herbs, and supplements. Eating and drinking Follow instructions from your health care provider about eating and drinking, which may include: 8 hours before the procedure stop eating heavy meals or foods, such as meat, fried foods, or fatty foods. 6 hours before the procedure stop eating light meals or foods, such as toast or cereal. 6 hours before the procedure stop drinking milk or drinks that contain milk. 2 hours before the procedure stop drinking clear liquids. Staying hydrated Follow instructions from your health care provider about hydration, which may include: Up to 2 hours before the procedure you may continue to drink clear liquids, such as water, clear fruit juice, black coffee, and plain tea. General instructions You may have a physical exam before the procedure. You may also have tests, such as imaging tests and blood or urine tests. If your ureter is too narrow, your health care provider may place a soft, flexible tube (stent) inside of it. The stent may be placed days or weeks before your laser therapy procedure. Plan to have someone take you home from the hospital or clinic. If you will be going home right after the procedure, plan to have someone stay with you for 24 hours. Do not use any products that contain nicotine or tobacco for at least 4 weeks before the procedure. These products include cigarettes, e-cigarettes, and chewing tobacco. If you need help quitting, ask your health care provider. Ask your health care provider: ?How your surgical site will be marked or identified. ?What steps will be taken to help prevent infection. These may include: ?Removing hair at the surgery site. ?Washing skin with a germ-killing soap. ?Taking antibiotic medicine. What happens during the procedure? An IV will be inserted into one of your veins. You will be given one or more of the following: ?A medicine to help you relax (sedative). ?A medicine to numb the area (local anesthetic). ?A medicine to make you fall asleep (general anesthetic). A ureteroscope will be inserted into your urethra. The ureteroscope will send images to a video screen in the operating room to guide your surgeon to the area of your kidney that will be treated. A small, flexible tube will be threaded through the ureteroscope and into your bladder and ureter, up to your kidney. The laser device will be inserted into your kidney through the tube. Your surgeon will pulse the laser on and off to break up kidney stones. A surgical instrument that has a tiny wire basket may be inserted through the tube into your kidney to remove the pieces of broken kidney stone. The procedure may vary among health care providers and hospitals. What happens after the procedure? Your blood pressure, heart rate, breathing rate, and blood oxygen level will be monitored until you leave the hospital or clinic. You will be given pain medicine as needed. You may continue to receive antibiotics. You may have a stent temporarily placed in your ureter. Do not drive for 24 hours if you were given a sedative during your procedure. You may be given a strainer to collect any stone fragments that you pass in your urine. Your health care provider may have these tested. This information is not intended to replace advice given to you by your health care provider. Make sure you discuss any questions you have with your health care provider. Document Revised: 06/27/2022 Document Reviewed: 10/23/2021 [employer] Patient Education 2022 [employer]. Follow Up Care 10/10/2023 13:16:43 With:NONA FAGAN, Reji Quintero, URL Address: [address] [place] [address]- When: Unknown [facility] 10-15-2023 Note Urology Office/Clini c Note Chief Complaint New Pt. Referral HPI Staff New Pt. Referral per Gilles Mauricio MD due to ureteral stone w/KUB 10/14/23 Dysuria: yes pain and burning after she urinating Incomplete bladder emptying: yes Hematuria: denies visible blood Frequency: every hour to two hour Urgency: denies Nocturia: 3x a night Stream: full bladder she has strong stream, sometimes had trickle stream Leaking: denies Post void dripping: denies Wearing pads/ Depends: denies Urge incontinence: denies Stress incontinence: denies Incontinence without Sensory Awareness: denies Abdominal pain: yes left sided pain 10/11, has taken Vicodin but didn't help Flank pain: yes left sided pain 10/11 Sexual complaints: denies History of Present Illness Tests reviewed: reviewed UA, referral records, CT, KUB I have reviewed the previous health record information and history for this patient from Dr. Gilles Mauricio. I have reviewed and verified the staff HPI to be accurate for this encounter. Review of Systems PHQ Score Initial Depression Screen Score: 0 SCORE ROS - Provider Constitutional: denies weight loss, denies hot flashes. Eyes: denies eye problems. Gastrointestinal: denies nausea, denies vomiting. Cardiovascular: denies chest pain or angina. Integumentary: no dryness Musculoskeletal: denies musculoskeletal symptoms. ENMT: denies otolaryngeal symptoms. Respiratory: no shortness of breath. Heme/Lymph: denies easy bleeding tendency, denies easy bruising tendency. Psychiatric: no confusion, no anxiety. Genitourinary: See HPI. Physical Exam Vitals & Measurements HR: 94(Peripheral) RR: 16 BP: 140/98 HT: 68 in HT: 173 cm WT: 103.6 kg WT: 227.92 lb BMI: 34.62 General Appearance: alert, no distress, well nourished, well developed female. No R sided pain. LLQ pain that radiates to groin. L flank pain also. Assessment/Plan Irene is a 48 yo female new pt referred by Dr. Gilles Mauricio due to ureteral stone. Pt here with her today. 1. Ureteral stone (N20.1: Calculus of ureter) CT AP wo con 10/02/23 Noms - Distal L ureteral stone 2-3 mm. No hydro. KUB 10/14/23 Noms - No ureteral stones noted. Personal review: L ureteral stone not appreciable. Reviewed imaging with pt. Discussed IVP to eval if ureteral stone is still present prior to proceeding with surgery (L URS, RGP, laser litho). Follow up pending IVP below or sooner if needed. Pt understands and agrees with plan. -Start Flomax 0.4 mg qd. SEs discussed. Rx sent to [facility]. -XR IVP stat. -Stay NPO starting tonight at midnight. Get stat IVP, if ureteral stone visible, can add to surgery schedule at [facility] [place]. -Pt go to the ER if they were to experience fever, shaking, chills, uncontrolled nausea, vomiting, or pain, for surgical intervention withon-call urologist. -Will schedule L URS, laser litho, possible stent placement pending IVP above. The procedural risks, benefits, details, and treatment alternatives have been discussed with the patient. These include bleeding, infection, inability to break or retrieve all of the stone, injury to the ureter (the tube which connects the kidney to the bladder), injury to the kidney scarring of the ureter, and need for repeat procedures, among others. Full informed consent has been obtained. Will order General anesthesia. 2. Left flank pain (R10.9: Unspecified abdominal pain) Still having L flank pain. PCP gave her Vicodin. Pain for two weeks. PE: ____. No R sided pain. LLQ pain that radiates to groin. L flank pain also. 3. Kidney stones (N20.0: Calculus of kidney) CT AP wo con 10/02/23 Noms - The largest stone is in the RUP calyx 4 mm. No hydro. Distal L ureteral stone 2-3 mm. KUB 10/14/23 [facility] - Small R sided renal stone, ~3 mm. Personal review: L ureteral stone not appreciable. 4. History of kidney stones (Z87.442: Personal history of urinary calculi) Has stone episodes every few years. Has never passed stones in the past on her own. The patient is here with her today. In summary she is a 48-year-old female with a positive prior history of kidney stones. The current episode of left-sided flank pain certainly feels like a stone to her. She was seen for a CT scan, the report of which demonstrates a 2 to 3 mm stone in the left lower ureter but there is absence of hydronephrosis or obvious dilatation of the ureter itself. Reviewed KUB from yesterday. There is actually a right true pelvic calcification which could theoretically be a right distal ureteral stone but this is the side opposite her pain. Due to these discrepancies, is my recommendation to proceed with an intravenous pyelogram. Hopefully this will delineate stone location and degree of obstruction, if present. I instructed her that she should go to the ER for immediate pain relief and a more expeditious repeat imaging study if the pain becomes severe prior to her intravenous pyelogram scheduling. Will start medical expulsive ther (more content not included)... [facility] Comment on above: Result Comment: Elec tronically Signed By: Reji CASTELLANO MD\.br\Date and Time Signed: 10/15/23 14:41 EDT\.br\Electronically Co-Signed By: Geno Chu\.br\Date and Time Co-Signed: 10/15/23 14:38 EDT 10-15-2023 Note Patient Education Nephrology Laser Therapy for Kidney Stones Laser therapy for kidney stones is a procedure to break up small, hard mineral deposits that form in the kidney (kidney stones). The procedure is done using a device that produces a focused beam of light (laser). The laser breaks up kidney stones into pieces that are small enough to be passed out of the body through urination or removed from the body during the procedure. You may need laser therapy if you have kidney stones that are painful or block your urinary tract. This procedure is done by inserting a tube (ureteroscope) into your kidney through the urethral opening. The urethra is the part of the body that drains urine from the bladder. In women, the urethra opens above the vaginal opening. In men, the urethra opens at the tip of the penis. The ureteroscope is inserted through the urethra, and surgical instruments are moved through the bladder and the muscular tube that connects the kidney to the bladder (ureter) until they reach the kidney. Tell a health care provider about: ? Any allergies you have. ? All medicines you are taking, including vitamins, herbs, eye drops, creams, and bkke-kmt-xkcoybc medicines. ? Any problems you or family members have had with anesthetic medicines. ? Any blood disorders you have. ? Any surgeries you have had. ? Any medical conditions you have. ? Whether you are or may be . What are the risks? Generally, this is a safe procedure. However, problems may occur, including: ? Infection. ? Bleeding. ? Allergic reactions to medicines. ? Damage to the urethra, bladder, or ureter. ? Urinary tract infection (UTI). ? Narrowing of the urethra (urethral stricture). ? Difficulty passing urine. ? Blockage of the kidney caused by a fragment of kidney stone. What happens before the procedure? Medicines ? Ask your health care provider about: ? Changing or stopping your regular medicines. This is especially important if you are taking diabetes medicines or blood thinners. ? Taking medicines such as aspirin and ibuprofen. These medicines can thin your blood. Do not take these medicines unless your health care provider tells you to take them. ? Taking kutv-qlz-ssjhsqh medicines, vitamins, herbs, and supplements. Eating and drinking Follow instructions from your health care provider about eating and drinking, which may include: ? 8 hours before the procedure ? stop eating heavy meals or foods, such as meat, fried foods, or fatty foods. ? 6 hours before the procedure ? stop eating light meals or foods, such as toast or cereal. ? 6 hours before the procedure ? stop drinking milk or drinks that contain milk. ? 2 hours before the procedure ? stop drinking clear liquids. Staying hydrated Follow instructions from your health care provider about hydration, which may include: ? Up to 2 hours before the procedure ? you may continue to drink clear liquids, such as water, clear fruit juice, black coffee, and plain tea. General instructions ? You may have a physical exam before the procedure. You may also have tests, such as imaging tests and blood or urine tests. ? If your ureter is too narrow, your health care provider may place a soft, flexible tube (stent) inside of it. The stent may be placed days or weeks before your laser therapy procedure. ? Plan to have someone take you home from the hospital or clinic. ? If you will be going home right after the procedure, plan to have someone stay with you for 24 hours. ? Do not use any products that contain nicotine or tobacco for at least 4 weeks before the procedure. These products include cigarettes, e-cigarettes, and chewing tobacco. If you need help quitting, ask your health care provider. ? Ask your health care provider: ? How your surgical site will be marked or identified. ? What steps will be taken to help prevent infection. These may include: ? Removing hair at the surgery site. ? Washing skin with a germ-killing soap. ? Taking antibiotic medicine. What happens during the procedure? ? An IV will be inserted into one of your veins. ? You will be given one or more of the following: ? A medicine to help you relax (sedative). ? A medicine to numb the area (local anesthetic). ? A medicine to make you fall asleep (general anesthetic). ? A ureteroscope will be inserted into your urethra. The ureteroscope will send images to a video screen in the operating room to guide your surgeon to the area of your kidney that will be treated. ? A small, flexible tube will be threaded through the ureteroscope and into your bladder and ureter, up to your kidney. ? The laser device will be inserted into your kidney through the tube. Your surgeon will pulse the laser on and off to break up kidney stones. ? A surgical instrument that has a tiny wire basket may be inserted through the tube into your kidney (more content not included)... [facility] 07-18-2021 Evaluation note Encounter Date Diagnosis Assessment Notes July, Acute pain of left knee (ICD-10 - M25.562) July, Contusion of left knee, initial encounter (ICD-10 - S80.02XA) Keep the abrasion clean and dry. Apply antibiotic ointment and a protective dressing to the area daily. Wear the Edward wrap for comfort and compression. Ice and elevate your knee 2-3 times a day. Take ibuprofen, 600 mg up to 3 times a day with food as needed for pain and swelling. Follow-up with your family physician if no improvement in 5 to 7 days. July, Abrasion, left knee, initial encounter (ICD-10 - S80.212A) July, Other Contusion material was printed Acceptd Other 03-01-2015 History general Narrative - Reported* Type Description Date Medical History Hypertension Medical History Anxiety associated with depressi on Medical History Insomnia Medical History Potassium deficiency Medical History DM Surgical History hysterectomy May 2014 Hospitalization History see above surgical histo ry Acceptd Other Evaluation + Plan note No data available for this section [facility] Evaluation noteNo assessment information available [facility] Work Phone: Evaluation note* Diagnosis Well adult exam- Primary Routine general medical examination at a health care facility Encounter for screening mammogram for malignant neoplasm of breast Controlled type 2 diabetes mellitus with hyperglycemia, without long-term current use of insulin (CMS/HCC) H/O hysterectomy for benign disease Hypertriglyceridemia (CMS/HCC) Pure hyperglyceridemia Obesity (BMI 30-39.9) Essential hypertension (CMS/HCC) Unspecified essential hypertension Anxiety Anxiety state, unspecified Insomnia, unspecified type Current moderate episode of major depressive disorder without prior episode (HCC) (CMS/HCC) Encounter for gynecological examination without abnormal finding EDWARD inhibitor intolerance Allergic rhinitis due to pollen, unspecified seasonality [facility] Diagnosis Yeast infection- Primary [facility]* Diagnosis Viral URI- Primary Acute upper respiratory infections of unspecified site Nasal congestion Other diseases of nasal cavity and sinuses Cough, unspecified type Right ear pain Unspecified otalgia [facility]* Diagnosis Acute non-recurrent pansinusitis- Primary [facility]* Diagnosis Lymphocytosis- Primary Lymphocytosis (symptomatic) [facility] Diagnosis Current moderate episode of major depressive disorder without prior episode (HCC) (CMS/HCC)- Primary Controlled type 2 diabetes mellitus with hyperglycemia, without long-term current use of insulin (CMS/HCC) Anxiety Anxiety state, unspecified Essential hypertension (CMS/HCC) Unspecified essential hypertension Allergic rhinitis due to pollen, unspecified seasonality Right flank discomfort Menopause Symptomatic menopausal or female climacteric states Hot flashes Hypertriglyceridemia (CMS/HCC) Pure hyperglyceridemia [facility]* Diagnosis Acute cystitis without hematuria- Primary documented in this encounter [facility]ructionsNot on filedocumented in this [facility] No data available for this section [facility] Summary Purpose Family History No Family History Records Found Relationship Condition Age at Onset Recorded Date/T maureen mother Hypertension Unknown Advance Directives No Advanced Directives Records Found Advance Directive Response Recorded Date/ Time Advance Directives No July 20 1:37pm Chief Complaint and Reason for Visit Chief Complaint transverse colon maryam yp screening Chief Complaint transverse colon maryam yp screening n20.1 n20.0 Additional Source Comments INFORMATION SOURCE (unrecogn ized section and content) DATE CREATED AUTHOR 03/21/[address] [facility] dical Specialist DATE CREATED AUTHOR AUTHOR'S ORGANIZ ATION 09/27/2021 [facility] DATE CREATED AUTHOR AUTHOR'S ORGANIZ ATION 10/27/2023 [facility] DATE CREATED AUTHOR AUTHOR'S ORGANIZ ATION 12/07/2023 [facility] DATE CREATED AUTHOR AUTHOR'S ORGANIZ ATION 05/04/[address] [facility] dical Specialists EPIC DATE CREATED AUTHOR AUTHOR'S ORGANIZ ATION 05/17/2024 [facility] Care Teams (unrecognized sec tion and content) Team Status: Inactive Member Role Status Dates Denisse Clemente NP-C Attending Provider Active Team Status: Inactive Member Role Status Dates Gregorio Maldonado DO Attending Provider Active Start : September 26, 2023 End: September 26, 2023 Team Status: Active Member Role Status Dates Gilles Mauricio MD Primary Care Provider Active Team Status: Inactive Member Role Status Dates Reji Castellano MD Attending Provider Active St art: October 18, 2023 End: October 18, 2023 Gilles Mauricio MD Primary Care Provider Active Sta rt: October 18, 2023 End: October 18, 2023 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 Specialty Start Date End Date Gilles Mauricio MD [address] [place] [place] [address] PCP - General Family Medicine 07/23/22 Kerri Manzanares NP [address] [place] [address] PCP - Medical [employer] 01/21/23 03/03/99 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 Specialty Start Date End Date Gilles Mauricio MD [address] [place] [address] PCP - General Family Medicine 07/23/22 Kerri Manzanares, [employer] [address] [place] [address] PCP - Medical [employer] 01/21/23 03/03/99 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 Specialty Start Date End Date Gilles Mauricio MD [address] [place] [address] PCP - General Family Medicine 07/23/22 Kerri Manzanares, [employer] [address] [place] [address] PCP - Medical [employer] 01/21/23 03/03/99 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 Specialty Start Date End Date Gilles Mauricio MD [address] [facility] [place] [address] PCP - General Family Medicine 07/23/22 Kerri Manzanares [employer] P[employer] [address] [place] [address] PCP - Medical [employer] 01/21/23 03/03/99 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 Specialty Start Date End Date Gilles Mauricio MD [address] [facility] [place] [address] PCP - General Family Medicine 07/23/22 Gilles Mauricio MD [address] [facility] [place] [address] PCP - Medical [employer] 01/21/23 03/03/99 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 Specialty Start Date End Date Gillse Mauricio MD [address] [place] [address] PCP - General Family Medicine 07/23/22 Gilles Mauricio MD [address] [place] [address] [address] PCP - Medical [employer] 01/21/23 03/03/99 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 Specialty Start Date End Date Gilles Mauricio MD [address] [place] [address] PCP - General Family Medicine 07/23/22 Gilles Mauricio MD [address] [place] [address] PCP - Medical [employer] 01/21/23 03/03/99 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 Specialty Start Date End Date Gilles Mauricio MD [address] [place] [address] PCP - General Family Medicine 11/29/23 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 Specialty Start Date End Date Gilles Mauricio MD [address] [address] PCP - General Family Medicine 07/23/22 Gilles Mauricio MD [address] [place] [address] [address] PCP - Medical [employer] 01/21/23 03/03/99 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 [place] [address] PCP - Medical [employer] 01/21/23 03/03/99 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 Specialty Start Date End Date Gilles Mauricio MD [address] [place] [address] PCP - General Family Medicine 07/23/22 Gilles Mauricio MD [address] [place] [address] PCP - Medical [employer] 01/21/23 03/03/99 Goals (unrecognized section and content) Goals may be documented in a n alternate sectionNo InformationGoals may be documented in an alternate section No data available for this sectionGoals may be documented in an alternate sectionNot on filedocumented as of this encounter REASON FOR VISIT (unrecogniz ed section and content) Reason Comments Annual Exam Reason Comments URI Reason Comments Leukocytosis Consult Specialty Diagnoses / Procedures Referred By Contac t Referred To Contact Hematology Diagnoses Leukocytosis, unspecified type Procedures ME OFFICE OUTPATIENT VISIT 60-74 MINS HIGH MDM AMB REFERRAL TO HEMATOLOGY Kerri Manzanares, DIVORCE LAWYER-FILAMENT SHAPER [address] [place] [address] Jeniffer Briscoe MD [address] [place] [address] [address] [place] [id number] Referral ID Status Reason Start Date Expiration Date V isits Requested Visits Authorized [id number] Pending Review 12/03/2023 05/31/2024 1 1 Reason Comments Follow-up FOR RECORDS PERTAINING TO PATIENTS WHO ARE OR HAVE BEEN ENROLLED IN A CHEMICAL DEPENDENCY/SUBSTANCEABUSE PROGRAM, SOME INFORMATION MAY BE OMITTED. This clinical summary was aggregated from multiple sources. Caution should be exercised in using it in the provision of clinical care. This summary normalizes information from multiple sources, and as a consequence, information in this document may materially change the coding, format and clinical context of patient data. In addition, data may be omitted in some cases. CLINICAL DECISIONS SHOULD BE BASED ON THE PRIMARY CLINICAL RECORDS. [facility]. provides no warranty or guarantee of the accuracy or completeness of information in this document.
--- NOTE | 2024-05-21 12:32 | ECG_ITS ---
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 Measurements Intervals [place] Rate: 93 P: 49 NH: 159 QRS: -1 QRSD: 97 T: 32 QT: 378 QTc: 471 Interpretive Statements SINUS RHYTHM NONSPECIFIC T-WAVE ABNORMALITY Abnormal ECG No previous ECG available for comparison Electronically Signed On 05-21-2024 18:32:43 EDT by KISHA PRUITT M.D.
--- NOTE | 2024-05-21 13:07 | P.GSHP_ITS ---
History of Present Illness History of Present Illness Chief complaint: right kidney stone left distal stone Narrative: Patient presents for presurgical testing. Please see HPI from Dr. Tejeda dated May 20, 2024. Review of Systems ROS0 Narrative Please see ROS from Dr. Tejeda dated May 20, 2024. [facility] Medical History (Updated 05/21/24 @ 12:53 by Monse Mason NP) Arthritis ?M19.90 - Unspecified osteoarthritis, unspecified site (ICD-10) Back pain ?M54.9 - Dorsalgia, unspecified (ICD-10) Migraine ?G43.909 - Migraine, unspecified, not intractable, without status migrainosus (ICD-10) Anxiety ?F41.9 - Anxiety disorder, unspecified (ICD-10) Diabetes ?E11.9 - Type 2 diabetes mellitus without complications (ICD-10) Hypertension ?I10 - Essential (primary) hypertension (ICD-10) Hyperlipidemia ?E78.5 - Hyperlipidemia, unspecified (ICD-10) Headache ?R51.9 - Headache, unspecified (ICD-10) Flank pain ?R10.9 - Unspecified abdominal pain (ICD-10) Depression ?F32.A - Depression, unspecified (ICD-10) Kidney stones ?N20.0 - Calculus of kidney (ICD-10) Surgical History (Updated 05/21/24 @ 12:38 by Monse Mason NP) History of hysterectomy ?Z90.710 - Acquired absence of both cervix and uterus (ICD-10) H/O colonoscopy ?Z98.890 - Other specified postprocedural states (ICD-10) H/O lithotripsy ?Z98.890 - Other specified postprocedural states (ICD-10) Family History (Updated 05/21/24 @ 12:53 by Monse Mason NP) Other CHF (congestive heart failure) Family history of diabetes mellitus Family history of hypertension Social History (Updated 05/21/24 @ 12:49 by Monse Mason NP) Within the past year, how often did you have a drink containing alcohol: monthly or less Smoking status: Never smoker Non-prescribed substance use: denies use 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 Highest level of school completed/degree received: some college, no degree Meds Home Medications and Allergies Home Medications ?Medication ?Instructions ?Recorded ?Confirmed ?Type atorvastatin 10 mg tablet 10 mg PO QPM 05/21/24 05/21/24 History cetirizine 10 mg capsule 10 mg PO DAILY PRN allergy symptoms 05/21/24 05/21/24 History clonidine HCl 0.1 mg tablet 0.1 mg PO QPM 05/21/24 05/21/24 History dulaglutide 0.75 mg/0.5 mL 0.75 mg subcut QWEEK 05/21/24 05/21/24 History subcutaneous pen injector (Trulicity) fluticasone propionate 50 2 spray intranasal DAILY 05/21/24 05/21/24 History mcg/actuation nasal spray,suspension metformin 500 mg tablet 500 mg PO BID 05/21/24 05/21/24 History metoprolol tartrate 25 mg tablet 25 mg PO BID 05/21/24 05/21/24 History multivitamin (Daily Multi-Vitamin 1 tab PO DAILY 05/21/24 05/21/24 History tablet) quetiapine 25 mg tablet 25 mg PO QPM 05/21/24 05/21/24 History venlafaxine 150 mg 150 mg PO QPM 05/21/24 05/21/24 History capsule,extended release 24 hr Allergies Allergy/AdvReac Type Severity Reaction Status Date / Time No Known Drug Allergies Allergy Verified 05/21/24 12:44 Exam Narrative Exam Narrative: Constitutional: Awake, alert, comfortable, well-appearing, nontoxic, interactive, vital signs as charted Head: Normocephalic, atraumatic Neck: Supple, normal appearance, normal range of motion, no meningeal signs, no lymphadenopathy Respiratory: No respiratory distress, breath sounds clear Cardiovascular: Regular rate and rhythm, strong and regular heart tones Abdomen: Nontender, normal bowel sounds, soft, no CVA tenderness Musculoskeletal: Normal gait, no swelling or edema Skin: No rashes or induration, no lesions, only visible skin inspected Neuro: No neurological deficits, normal sensation Psychiatric: Oriented ?3, normal affect Assessment and Plan Assessment and Plan (1) Kidney stones: Plan Right ESWL, possible left ureteroscopy, possible laser lithotripsy, possible left stent placement scheduled with Dr. Tejeda May 27, 2024.
[2024-05-21 13:12] LABS: Basophils Percent Auto 0.3 % (0.2-2.0); Eosinophils Absolute Auto 0.2 10^3/uL (0.0-0.7); Eosinophils Percent Auto 1.9 % (0.9-7.0); Hematocrit 39.6 % (36.0-48.0); Hemoglobin 13.4 g/dL (12.0-16.0); Immature Granulocytes Abs Auto 0.06 10^3/uL (0.00-0.03); Immature Granulocytes Pct Auto 0.5 % (0.0-0.5); Lymphocytes Absolute Auto 3.3 10^3/uL (1.2-3.8); Lymphocytes Percent Auto 28.1 % (20.5-60.0); Mean Corpuscular HGB Conc 33.8 g/dL (29.9-35.2); Mean Corpuscular Hemoglobin 30.8 pg (26.7-34.0); Mean Platelet Volume 10.3 fL (9.5-13.5); Monocytes Absolute Auto 0.9 10^3/uL (0.3-0.8); Monocytes Percent Auto 7.7 % (1.7-12.0); Neutrophils Absolute Auto 7.1 10^3/uL (1.4-6.5); Neutrophils Percent Auto 61.5 % (43.0-75.0); Platelet Count 317 10^3/uL (150-450); Red Blood Count 4.35 10^6/uL (4.20-5.40); White Blood Count 11.6 10^3/uL (4.0-11.0)
[2024-05-21 13:35] LABS: BUN Creatinine Ratio 17.1; Calcium 8.9 mg/dL (8.5-10.1); Chloride 102 mmol/L (98-107); Estimated GFR (African America >60 (>=60 mL/min/1.73m^2); Estimated GFR (Non-African Ame >60 (>=60 mL/min/1.73m^2); Glucose 163 mg/dL (74-106); Sodium 138 mmol/L (136-145)
[2024-05-21 13:42] LABS: INR 0.95; Prothrombin Time 10.1 sec (9.0-11.6)
[2024-05-21 13:45] LABS: Partial Thromboplastin Time 24.8 sec (22.3-36.2)
== END 2024-05-21 12:25 | disposition home or self-care (01) ==
LOC: PST 12:26
PROVIDERS: PCP Family Medicine; Visit Provider Urology
DX: Z01.810 Encounter for preprocedural cardiovascular examination (principal); Z01.812 Encounter for preprocedural laboratory examination; Z01.818 Encounter for other preprocedural examination; N20.0 Calculus of kidney
CPT/HCPCS: 80048; 81003; 85025; 85610; 85730; 87086; 93005; G0463

== ENCOUNTER 2024-05-27 11:13 | Day surgery (SDC) | payer OTHER, SELFPAY ==
[2024-05-21 13:04] VITALS: BP 129/85; PULSE 94; TEMP 36.5; O2SAT 98; BMI 35.4
[2024-05-27] VITALS (11 sets, daily range): BP systolic 126–169; BP diastolic 84–99; PULSE 77–95; TEMP 36.2–36.6; O2SAT 91–100; BMI 35.0
--- NOTE | 2024-05-27 11:34 | XR_ITS ---
The [place] [id number] Patient Name: IRENE SAMPSON MRN: [id number] date: 1975 Sex: F [facility] Current Patient Location: Accession/Order Number: [id number] Exam Date: 05/27/2024 15:26 Report Date: 05/27/2024 15:27 At the request of: CHUY PRINCE MD Procedure: XR abdomen 1V KUB: CLINICAL INFORMATION: Kidney stone COMPARISON: KUB 12/08/2020 FINDINGS: 3 mm stone right kidney. Left kidney appears unremarkable. No bowel obstruction or free air. Phleboliths are seen within the pelvis. XR/XR abdomen 1V IMPRESSION: 3 MM STONE RIGHT KIDNEY. Impression dictated by: Drew Khalil Jr. DJulianaOJuliana05/27/2024 3:27 PM Dictation Location: [place] [address] Electronically authenticated by: [id number] Y Date: 05/27/2024 15:27
[2024-05-27 11:46] LABS: Glucometer 111 mg/dL (74-106)
[2024-05-27] MEDS: LACTATED RINGER'S SOLUTION 1,000 ML 50 ML IV (12:05)
[2024-05-27] MEDS: CEFAZOLIN SODIUM 2 GM/50 ML D5W PREMIX IV (12:53)
--- NOTE | 2024-05-27 13:31 | PM.URSON ---
Urology Surgery Operative Note Operative Note Procedure Date: 05/27/24 Time Out Performed: yes Pre-op Diagnosis: Right kidney stone Post-op Diagnosis: same as pre-op Procedures performed: Right extracorporeal shockwave lithotripsy Anesthesia: General-LMA Primary Surgeon: Mandy Tejeda Complications: none Estimated blood loss (mL): 0 Findings: Right upper pole kidney stone 5 mm underwent uncomplicated shockwave lithotripsy Specimens: none Indications for Procedures: The patient was evaluated in clinic and deemed a candidate for right extracorporeal shock wave lithotripsy. Risks were discussed to include but not limited to bleeding, pain, infection, damage to surrounding structures, inability to treat the stone, residual fragments, obstruction and need for additional procedures. Detailed description of Procedure: After informed consent was obtained, the patient was brought to the operating room and placed on the lithotripsy bed in supine position. Sequential compression devices were placed on bilateral lower extremities. The patient received the appropriate dose of preoperative IV antibiotics and general anesthesia was induced. An operative time out was performed confirming the patient's identity, procedure, laterality and safety checks. The patient was positioned with the Siemens Modularis Lithostar lithotripter head on the right flank. The stone was triangulated using fluoroscopy. A total of 3000 shocks were provided and the stone was seen to fragment well. The procedure was concluded and patient was awakened from anesthesia in stable condition. The patient tolerated the procedure well without complications. Plan: Discharge home with strainer and tamsulosin. Follow up in 4 weeks with KUB and renal US
--- NOTE | 2024-05-27 15:25 | PC.NURSE ---
Minimal bruising right flank
--- NOTE | 2024-05-27 15:26 | PC.NURSE ---
Up to bathroom and voids dark red urine without difficulty; urine strained and negative for calculi
== END 2024-05-27 15:28 | disposition home or self-care (01) ==
PROVIDERS: PCP Family Medicine; Visit Provider Urology
PROC: (CPT 873; principal; 2024-05-27 12:15)
DX: N20.0 Calculus of kidney (principal); E78.5 Hyperlipidemia, unspecified; I10 Essential (primary) hypertension; E11.9 Type 2 diabetes mellitus without complications; Z90.710 Acquired absence of both cervix and uterus; Z87.440 Personal history of urinary (tract) infections; Z79.84 Long term (current) use of oral hypoglycemic drugs
CPT/HCPCS: 50590; 36415; 74018; 82948; J0690; J1100; J1885; J2250; J2405; J2704; J3010

== ENCOUNTER 2024-06-23 08:20 | Outpatient (OUT) | payer OTHER, SELFPAY ==
--- NOTE | 2024-06-23 08:27 | US_ITS ---
[address] [address] Patient Name: IRENE SAMPSON MRN: [id number] date: 1975 Sex: F Assigned Patient Location: US Current Patient Location: US Accession/Order Number: [id number] Exam Date: 06/23/2024 09:23 Report Date: 06/23/2024 09:24 At the request of: DWAIN LOPEZ Procedure: US renal BI Bilateral Renal Ultrasound HISTORY: History of nephrolithiasis COMPARISON: None RIGHT kidney measures 11.6 cm. LEFT kidney measures 12.4 cm. Hydronephrosis: None RENAL STONE: Nonobstructing left renal calculi measuring up to 6 mm. RENAL LESIONS: No renal lesion identified. URINARY BLADDER: Unremarkable REPRODUCTIVE STRUCTURES Not assessed IMPRESSION : No hydronephrosis. Impression dictated by: Mitchel Sweet M.D.06/23/2024 9:24 AM Dictation Location: [place] [address] Electronically authenticated by: [id number] Y Date: 06/23/2024 09:24
--- NOTE | 2024-06-23 08:52 | XR_ITS ---
[address] [address] Patient Name: IRENE SAMPSON MRN: [id number] date: 1975 Sex: F Assigned Patient Location: US Current Patient Location: US Accession/Order Number: [id number] Exam Date: 06/23/2024 09:25 Report Date: 06/23/2024 09:26 At the request of: DWAIN LOPEZ Procedure: XR abdomen 1V Single view of abdomen COMPARISON: None HISTORY: History of kidney stones. Post lithotripsy THORAX: Lung bases unremarkable. FREE AIR: Supine position limits assessment BOWEL: No gaseous intestinal distention. STOOL: Moderate stool. RENAL STONES: Faint left renal calculi measuring up to 5 mm. No ureteral stone. No bladder stone. VASCULAR CALCIFICATIONS: Unremarkable SOFT TISSUE: Unremarkable BONES: Unremarkable POSTSURGICAL CHANGES: None XR/XR abdomen 1V IMPRESSION: Left nephrolithiasis. Impression dictated by: Mitchel Sweet M.D.06/23/2024 9:26 AM Dictation Location: [place] [address] Electronically authenticated by: [id number] Y Date: 06/23/2024 09:26
== END 2024-06-23 08:21 | disposition home or self-care (01) ==
LOC: US 08:21
PROVIDERS: PCP Family Medicine; Visit Provider Student in an Organized Health Care Education/Training Program
DX: N20.0 Calculus of kidney (principal)
CPT/HCPCS: 74018; 76775

== ENCOUNTER 2024-10-14 11:19 | Outpatient (OUT) | payer OTHER, SELFPAY ==
--- OUTSIDE RECORDS SUMMARY | 2024-10-14 11:22 | XMS_ITS | Encounter Summary ---
Author Organization [facility] Address [address] [facility] [place] [address] Care Team Providers Care Light Air Defense Artillery Crewmember Name Role Phone Kerri Marin NP Unavailable Erlinda Mauricio MD Primary Care Provider [phone] Erlinda Mauricio MD Unavailable Encounter Details Date Type Department Care Team (Late st Contact Info) Description 09/12/2022 Abstract [facility] [place] [facility] [address] [facility] [place] [id number] Erlinda Mauricio MD [address] [facility] [place] [address] Social History Tobacco Use Types Packs/Day Years Used Date Smoking Tobacco: Never Smokeless Tobacco: Never AUDIT-C Answer Date Recorded Q1: How often do you have a drink containing alc ohol? Monthly or less 07/23/2022 Q2: How many drinks containi ng alcohol do you have on a typical day when you are drinking? 1 or 2 07/23/2022 Q3: How often do you have si x or more drinks on one occasion? Never 07/23/2022 PHQ-2 Answer Date Recorded Patient Health Questionnaire-2 Score 0 07/23/2022 Comments Unknown Sex and Gender Information Value Date Recorded Sex Assigned at Not on file Legal Sex Female 6:36 PM EDT Gender Identity Not on file Sexual Orientation Not on file documented as of this encounter Plan of Treatment Upcoming Encounters Date Type Department Care Team (Late st Contact Info) Description 01/26/2025 4:00 PM EST Office Visit [facility] [place] [facility] [address] [facility] [place] [address] Erlinda Mauricio MD [address] [facility] [place], [place] [id number] documented as of this encounter Visit Diagnoses Not on filedocumented in this encounter Care Teams [employer] Artillery Crewmember Relationship Specialty Start Date End Date Kerri Marin NP PCP - [employer] [employer] 06/02/20 Erlinda Mauricio MD [address] [facility] [place], [place] [id number] PCP - General Family Medicine 07/23/22 Erlinda Mauricio MD [address] [facility] [place], [place] [id number] PCP - Medical [place] [employer] 01/21/23 03/03/99 documented as of this encounter
--- OUTSIDE RECORDS SUMMARY | 2024-10-14 11:22 | XMS_ITS | Encounter Summary ---
Author Organization [employer] Address [id number] [address] [place] [address] Care Team Providers Care Police Specialist Name Role Phone Erlinda Mauricio MD Primary Care Provider [phone] Encounter Details Date Type Department Care Team (Late st Contact Info) Description [facility]/01[facility] [address] [place] [address] Kathie Juárez RMA Social History Tobacco Use Types Packs/Day Years Used Date Smoking Tobacco: Never Smokeless Tobacco: Never Alcohol Use Standard Drinks/Week Comments Not Currently 0 (1 standard drink = 0.6 oz pur e alcohol) Childcare Answer Date Recorded Childcare Unknown 08/13/2018 Employment Answer Date Recorded Employment Unknown 08/13/2018 Hunger Screening Answer Date Recorded Within the past 12 months we worried whether our food would run out before we got money to buy more. Never True 12/05/2023 Within the past 12 months th e food we bought just didn't last and we didn't have money to get more. Never True 12/05/2023 Purpose - Life Answer Date Recorded Purpose and direction in life Unknown Comments No Sex and Gender Information Value Date Recorded Sex Assigned at Not on file Legal Sex Female 11:37 AM EDT Gender Identity Not on file Sexual Orientation Not on file documented as of this encounter Miscellaneous Notes * Telephone Encounter - KAUSHAL Garcia - 06/01/2024 11:34 AM EDT Pt is not interested in scheduling with Dr. uLna. She has seen a different Urologist and had surgery. documented in this encounter Plan of Treatment Not on file documented as of this encounter Visit Diagnoses Not on filedocumented in this encounter Care Teams Police Specialist Relationship Specialty Start Date End Date Erlinda Mauricio MD [address] [place] [address] PCP - General Family Medicine 11/29/23 documented as of this encounter
--- OUTSIDE RECORDS SUMMARY | 2024-10-14 11:22 | XMS_ITS | Encounter Summary ---
Author Organization [facility] Address [address] [facility] [place] [address] Care Team Providers Care Wealth Management Director Name Role Phone Kerri Marin NP Unavailable Erlinda Mauricio MD Primary Care Provider [phone] Erlinda Mauricio MD Unavailable Encounter Details Date Type Department Care Team (Late st Contact Info) Description 10/11/2022 Orders Only [facility] [place] [facility] [address] [facility] [place] [address] Erlinda Mauricio MD [address] [facility] [place] [address] Social History Tobacco Use Types [...] Description 01/26/2025 4:00 PM EST Office Visit [facility] [place] [facility] [address] [place] [address] Erlinda Mauricio MD [address] [place] [place] [id number] documented as of this encounter Procedures Procedure Name Priority Date/Time Associated Diagnosis Comments DIABETIC RETINOPATHY SCREENING - OU - BOTH EYES Routine 09/06/2022 6:28 PM EDT documented in this encounter Results * Diabetic Retinopathy Screening - OU - Both Eyes (09/06/2022 6:28 PM EDT) Anatomical Region Laterality Modality Head Other us Erlinda Mauricio MD OPHTH PHOTOGRAPHY Edited Result - Final documented in this encounter Visit Diagnoses Not on filedocumented in this encounter Care Teams Wealth Management Director Relationship Specialty Start Date End Date Kerri Marin NP PCP - [employer] 06/02/20 Erlinda Mauricio MD [address] [place] [place] [id number] PCP - General Family Medicine 07/23/22 Erlinda Mauricio MD [address] [place] [place] [id number] PCP - Medical [place] [employer] 01/21/23 03/03/99 documented as of this encounter
--- OUTSIDE RECORDS SUMMARY | 2024-10-14 11:22 | XMS_ITS | Encounter Summary ---
Author Organization [facility] Address [address] [facility] [place] [address] Care Team Providers Care Malted Milk Supervisor Name Role Phone Kerri Marin NP Unavailable Erlinda Mauricio MD Primary Care Provider [phone] Erlinda Mauricio MD Unavailable Encounter Details Date Type Department Care Team (Late st Contact Info) Description 10/05/2022 Orders Only [facility] [place] [facility] [address] [facility] [place] [address] Erlinda Mauricio MD [address] [facility] [place] [address] Social History Tobacco Use Types [...] 01/26/2025 4:00 PM EST Office Visit [facility] [place] [facility] [address] [facility] [place] [phone] Erlinda Mauricio MD [address] [facility] [place], [place] [phone] documented as of this encounter Procedures Procedure Name Priority Date/Time Associated Diagnosis Comments TOMOSYNTHESIS SCREEN MAMMOGRAM Routine 10/04/2022 10:17 AM EDT documented in this encounter Results * TOMOSYNTHESIS SCREEN MAMMOGRAM (10/04/2022 10:17 AM EDT) Anatomical Region Laterality Modality Radiographic Josee ging us Erlinda Mauricio MD IMG XR PROCEDURES Final Result documented in this encounter Visit Diagnoses Not on filedocumented in this encounter Care Teams Malted Milk Supervisor Relationship Specialty Start Date End Date Kerri Marin NP PCP - [place] [employer] 06/02/20 Erlinda Mauricio MD [address] [facility] [place], [place] [phone] PCP - General Family Medicine 07/23/22 Erlinda Mauricio MD [address] [facility] [place], [place] [phone] PCP - Medical [place] [employer] 01/21/23 03/03/99 documented as of this encounter
--- OUTSIDE RECORDS SUMMARY | 2024-10-14 11:22 | XMS_ITS | Encounter Summary ---
Author Organization [facility] Address [address] [place] [address] Care Team Providers Care Health Care Facility Administrator Name Role Phone Erlinda Mauricio MD Primary Care Provider [phone] Erlinda Mauricio MD Unavailable Encounter Details Date Type Department Care Team (Late st Contact Info) Description 09/27/2023 Orders Only [facility] [address] [facility] [address] [place] [phone] Gregorio Cheng DO [address] [facility] [address] [place] [address] Social History Tobacco Use Types Packs/Day Years Used Date Smoking Tobacco: Never Smokeless Tobacco: Never Alcohol Use Standard Drinks/Week Comments Yes 1 (1 standard drink = 0.6 oz pur e alcohol) Once a month if that Humiliation, Afraid, Rape, and Kick questionnair e Answer Date Recorded Within the last year, have y ou been afraid of your partner or ex-partner? No 12/17/2022 Within the last year, have y ou been humiliated or emotionally abused in other ways by your partner or ex-partner? No Within the last year, have y ou been kicked, hit, slapped, or otherwise physically hurt by your partner or ex-partner? No 12/17/2022 Within the last year, have y ou been raped or forced to have any kind of sexual activity by your partner or ex-partner? No 12/17/2022 Social Connection and Isolation Panel [NHANES] A nswer Date Recorded In a typical week, how many times do you talk on the phone with family, friends, or neighbors? Once a week 12/18/19 How often do you get togethe r with friends or relatives? Once a week 12/17/2022 How often do you attend chur ch or congregation services? 1 to 4 times per year 12/17/2022 Do you belong to any clubs o r organizations such as congregational groups, unions, fraternal or athletic groups, or school groups? No 12/17/2022 How often do you attend meet ings of the clubs or organizations you belong to? Never 12/17/2022 Are you , , di vorced, , never , or living with a partner? 12/17/2022 AUDIT-C Answer Date Recorded Q1: How often do you have a drink containing alc ohol? 2-4 times a month 12/17/2022 Q2: How many drinks containi ng alcohol do you have on a typical day when you are drinking? 1 or 2 12/17/2022 Q3: How often do you have si x or more drinks on one occasion? Never 12/17/2022 Overall Financial Resource Strain (CARDIA) Answe r Date Recorded How hard is it for you to pa y for the very basics like food, housing, medical care, and heating? Not very hard 12/17/2022 PHQ-2 Answer Date Recorded Patient Health Questionnaire-2 Score 0 08/19/2023 [facility] - Occupational Stress Questionnaire Answer Date Recorded Do you feel stress - tense, restless, nervous, or anxious, or unable to sleep at night because your mind is troubled all the time - these days? To some extent 12/17/2022 Exercise Vital Sign Answer Date Recorde d On average, how many days pe r week do you engage in moderate to strenuous exercise (like a brisk walk)? 1 day 12/17/2022 On average, how many minutes do you engage in exercise at this level? 10 min 12/17/2022 Hunger Vital Sign Answer Date Recorded Within the past 12 months, y ou worried that your food would run out before you got the money to buy more. Never true 12/18/19 23 Within the past 12 months, t he food you bought just didn't last and you didn't have money to get more. Never true 12/17/2022 PRAPARE - Transportation Answer Date Re corded In the past 12 months, has l ack of transportation kept you from medical appointments or from getting medications? No 12/02 In the past 12 months, has l ack of transportation kept you from meetings, work, or from getting things needed for daily living? No 12/17/2022 Housing Stability Vital Sign Answer Ousmane e Recorded In the last 12 months, was t here a time when you were not able to pay the mortgage or rent on time? No 12/17/2022 In the last 12 months, how many places have you lived? 1 12/17/2022 In the last 12 months, was t here a time when you did not have a steady place to sleep or slept in a skilled nursing (including now)? No 12/17/2022 Comments Unknown Sex and Gender Information Value Date Recorded Sex Assigned at Not on file Legal Sex Female 6:36 PM EDT Gender Identity Not on file Sexual Orientation Not on file documented as of this encounter Plan of Treatment Upcoming Encounters Date Type Department Care Team (Late st Contact Info) Description 01/26/2025 4:00 PM EST Office Visit [facility] [address] [facility] [place] [address] Erlinda Mauricio MD [address] [facility] [place], [place] [id number] documented as of this encounter Procedures Procedure Name Priority Date/Time Associated Diagnosis Comments COLONOSCOPY Routine 09/27/2023 8:45 AM EDT documented in this encounter Results * Colonoscopy (09/27/2023 8:45 AM EDT) Anatomical Region Laterality Modality Endoscopy Gregorio Cheng DO ENDOSCOPY PROCEDURE ORDERABLES Final Result documented in this encounter Visit Diagnoses Not on filedocumented in this encounter Care Teams Health Care Facility Administrator Relationship Specialty Start Date End Date Erlinda Mauricio MD [address] [facility] [address] [place], [place] [id number] PCP - General Family Medicine 07/23/22 Erlinda Mauricio MD [address] [place] [address] PCP - Medical [place] [employer] 01/21/23 03/03/99 documented as of this encounter
--- OUTSIDE RECORDS SUMMARY | 2024-10-14 11:22 | XMS_ITS | Clinical Summary ---
Author Organization [facility] tem Address [id number] [address] [place] [address] Care Team Providers Care Spike Machine Feeder Name Role Phone Erlinda Mauricio MD Primary Care Provider [phone] Allergies Active Allergy Reactions Criticality Noted Date Comments Levonorgestrel-Ethinyl Estrad 2023 Medications atorvastatin (LIPITOR) 10 mg tablet Take 1 tablet (10 mg total) by mouth in the morning. 10/22/2023 Active ONETOUCH DELICA PLUS LANCET 33 gauge misc 10/23/2023 Active loratadine (CLARITIN) 10 mg tablet Take 1 tablet (10 mg total) by mouth in the morning. 10/22/2023 Active metFORMIN (GLUCOPHAGE) 500 mg tablet Take 1 tablet (500 mg total) by mouth in the morning and 1 tablet (500 mg total) in the evening. Take with meals. 10/22/2023 Active metoprolol tartrate (LOPRESSOR) 25 mg tablet Take 1 tablet (25 mg total) by mouth in the morning and 1 tablet (25 mg total) before bedtime. 10/22/2023 Active QUEtiapine (SEROquel) 25 mg tablet Take 1 tablet (25 mg total) by mouth nightly. 10/22/2023 Active OZEMPIC 0.25 mg or 0.5 mg (2 mg/3 mL) pen injector Inject 0.5 mg as directed once a week. 10/22/2023 Active venlafaxine XR (EFFEXOR-XR) 150 mg 24 hr capsule Take 1 capsule (150 mg total) by mouth in the morning. 10/22/2023 Active jeaqprsm-rrmg-C A-calcium &mins (THERAGRAN-M) 9 mg iron-400 mcg tablet Take 1 tablet by mouth in the morning. Active Active Problems Problem Noted Date Diagnosed Date Lymphocytosis 12/05/2023 Family History Medical History Relation Name Comments Hypertension Father Hypertension Mother Relation Name Status Comments Father Alive Mother Alive Social History Tobacco Use Types Packs/Day Years Used Date Smoking Tobacco: Never Smokeless Tobacco: Never Tobacco Cessation:Counseling Given: Not Answered Alcohol Use Standard Drinks/Week Comments Not Currently [...] on file Sexual Orientation Not on file Last Filed Vital Signs Vital Sign Reading Time Taken Comments Blood Pressure 146/92 12/05/2023 3:28 PM EDT Pulse 106 12/05/2023 3:28 PM EDT Temperature 36.8 C (98.3 F) 12/05/2023 3:28 PM EDT Respiratory Rate 16 12/05/2023 3:28 PM EDT Oxygen Saturation 100% 12/05/2023 3:28 PM EDT Inhaled Oxygen Concentration - - Weight 104.3 kg (230 lb) 12/05/2023 3:28 PM EDT Height 172.5 cm (5' 7.91 ) 12/05/2023 3:28 PM ED T Body Mass Index 35.06 12/05/2023 3:28 PM EDT Plan of Treatment Health Maintenance Due Date Last Done Comments Depression Screening 1989 Adult BMI Follow Up Plan 1995 COVID-19 Vaccine (5 - 2023-2 5 season) 2023 12/13/2021, 12/18/2020, 05/19/2020, Additional history exists Influenza Vaccine 11/02/2024 Adult BMI Screening 12/04/2024 12/05/2023 Tobacco Screening 12/04/2024 12/05/2023 DTaP,Tdap and Td Vaccines (4 - Td or Tdap) 07/19/2031 07/18/2021, 12/26/2007, 03/04/2005 Medical Devices Not on file Insurance [employer] Care Teams Spike Machine Feeder Relationship Specialty Start Date End Date Erlinda Mauricio MD [address] [place] [address] PCP - General Family Medicine 11/29/23
--- OUTSIDE RECORDS SUMMARY | 2024-10-14 11:22 | XMS_ITS | Encounter Summary ---
Author Organization [facility] Healthcare Address [address] [facility] [place] [address] Care Team Providers Care Supervisor Roving Department Name Role Phone Kerri Marin NP Unavailable Erlinda Mauricio MD Primary Care Provider [phone] Erlinda Mauricio MD Unavailable Encounter Details Date Type Department Care Team (Late st Contact Info) Description 12/25/2022 [facility] [place] [facility] [address] [facility] [place] [phone] Erlinda Mauricio MD [address] [place] [address] Social History Tobacco Use Types Packs/Day Years Used Date Smoking Tobacco: Never Smokeless Tobacco: Never Humiliation, Afraid, Rape, and Kick questionnair e [...] 12/17/2022 How often do you attend chur or sabianist services? 1 to 4 times per year 12/17/2022 Do you belong to any clubs o r organizations such as bahai groups, unions, fraternal or athletic groups, or [...] Recorded Patient Health Questionnaire-2 Score 0 07/23/2022 [facility] - Occupational Stress Questionnaire Answer Date Recorded [...] place to sleep or slept in a alf (including now)? No 12/17/2022 Comments Unknown Sex and Gender Information Value Date Recorded Sex Assigned at Not on file Legal Sex Female 6:36 PM EDT Gender Identity Not on file Sexual Orientation Not on file COVID-19 Exposure Response Date Recorded In the last 10 days, have yo u been in contact with someone who was confirmed or suspected to have Coronavirus/COVID-19? No / Unsure 12/17/2022 9:58 AM EDT documented as of this encounter Plan of Treatment Upcoming Encounters Date Type Department Care Team (Late st Contact Info) Description 01/26/2025 4:00 PM EST Office Visit [facility] [address] [place] [address] Erlinda Mauricio MD [address] [place], [place] [phone] documented as of this encounter Visit Diagnoses Not on filedocumented in this encounter Care Teams Supervisor Roving Department Relationship Specialty Start Date End Date Kerri Marin NP PCP - [place] [employer] 06/02/20 Erlinda Mauricio MD [address] [place] [address] PCP - General Family Medicine 07/23/22 Erlinda Mauricio MD [address] [place] [address] PCP - Medical [place] [employer] 01/21/23 03/03/99 documented as of this encounter
--- OUTSIDE RECORDS SUMMARY | 2024-10-14 11:22 | XMS_ITS | Encounter Summary ---
Author Organization [facility] Healthcare Address [address] [facility] [place] [address] Care Team Providers Care Desktop Operator Name Role Phone Kerri Marin NP Unavailable Erlinda Mauricio MD Primary Care Provider [phone] Erlinda Mauricio MD Unavailable Encounter Details Date Type Department Care Team (Late st Contact Info) Description 10/11/2022 Abstract [facility] [address] [facility] [place] [phone] Erlinda Mauricio MD [address] [facility] [place] [address] Social History Tobacco Use Types [...] Office Visit [facility] [address] [facility] [place] [address] Erlinda Mauricio MD [address] [facility] [address] [place], [place] [phone] documented as of this encounter Visit Diagnoses Not on filedocumented in this encounter Care Teams Desktop Operator Relationship Specialty Start Date End Date Kerri Marin NP PCP - [place] [employer] 06/02/20 Erlinda Mauricio MD [address] [facility] [place], [place] [phone] PCP - General Family Medicine 07/23/22 Erlinda Mauricio MD [address] [facility] [place], [place] [phone] PCP - Medical [place] [employer] 01/21/23 03/03/99 documented as of this encounter
--- OUTSIDE RECORDS SUMMARY | 2024-10-14 11:22 | XMS_ITS | Encounter Summary ---
Author Organization [facility] Address [address] [place] [address] Care Team Providers Care Wire Tinner Name Role Phone Irma Chase MD Primary Care Provider [phone] Irma Chase MD Unavailable Encounter Details Date Type Department Care Team (Late st Contact Info) Description 10/08/2023 Clinisync Result Encounter [facility] Department Unsolicited Kerri Marin, EZIO Social History Tobacco Use Types Packs/Day Years [...] friends, or neighbors? Once a week 12/18/19 23 How often do you get togethe r with friends or relatives? Once a week 12/17/2022 How often do you attend chur ch or jew services? 1 to 4 times per year 12/17/2022 Do you belong to any clubs o r organizations such as islam groups, unions, fraternal or athletic groups, or [...] Recorded Patient Health Questionnaire-2 Score 0 08/19/2023 [facility] - Occupational Stress Questionnaire Answer Date Recorded [...] money to buy more. Never true 12/18/19 Within the past 12 months, t he [...] place to sleep or slept in a care home (including now)? No 12/17/2022 Comments Unknown Sex and Gender Information Value Date Recorded Sex Assigned at Not on file Legal Sex Female 6:36 PM EDT Gender Identity Not on file Sexual Orientation Not on file documented as of this encounter Plan of Treatment Upcoming Encounters Date Type Department Care Team (Late st Contact Info) Description 01/26/2025 4:00 PM EST Office Visit [facility] [address] [place] [address] Irma Chase MD [address] [place], [place] [phone] documented as of this encounter Procedures Procedure Name Priority Date/Time Associated Diagnosis Comments MM TOMOSYNTHESIS SCREENING BI 10/08/2023 1:49 PM EDT documented in this encounter Results * MM TOMOSYNTHESIS SCREENING BI (10/08/2023 1:49 PM EDT) Anatomical Region Laterality Modality Other 10/08/2023 1:49 PM EDT Narrative 10/08/2023 1:50 PM EDT The [address] [address] Mammography Report Signed Patient: KATHIE LOPEZ MR#: [id number] : 1975 Acct:[id number] Age/Sex: 48 / F ADM Date: 10/07/23 Loc: MAMMO Attending Dr: KERRI MARIN Ordering Physician: KERRI MARIN Results: Date of Service: 10/07/23 Follow Up: Procedure(s): MM tomosynthesis screening BI Accession Number(s): [id number] cc: SALVATOREIRMA ; KERRI MARIN Patient Name: KATHIE LOPEZ MR#: [id number] : 1975 Exam Date: 10/07/2023 Ordering Doctor: KERRI MARIN FAMILY N RADIOLOGY REPORT PROCEDURE: MM TOMOSYNTHESIS SCREENING BI COMPARISON: MM TOMOSYNTHESIS SCREENING BI, 10/04/2022. MG MAMM SCREEN 3D ANTHONY CAD, 09/25/2021. MG MAMM SCREEN 3D ANTHONY CAD, 09/22/2020. MG MAMM SCREEN ANTHONY W CAD, 06/14/2017. INDICATIONS: Screening Calculator Name NCI Breast Cancer Risk Assessment Tool 5 Year Breast Cancer Risk 0.80% Lifetime Breast Cancer Risk 8.50% Personal Breast Cancer No Personal Ovarian Cancer No Treatments None Family Cancers None LOCATION: [facility] BREAST COMPOSITION: There are scattered areas of fibroglandular density. FINDINGS: DIAGNOSTIC CATEGORY 2--BENIGN FINDING: RIGHT BREAST: No significant suspicious finding. Scattered benign-appearing lymph nodes are present. No significant change has occurred. LEFT BREAST: No significant suspicious finding. Scattered benign-appearing lymph nodes are present. No significant change has occurred. RECOMMENDATIONS: ROUTINE MAMMOGRAM AND CLINICAL EVALUATION IN 12 MONTHS. PLEASE NOTE: A NORMAL MAMMOGRAM DOES NOT EXCLUDE THE POSSIBILITY OF BREAST CANCER. A CLINICALLY SUSPICIOUS PALPABLE LUMP SHOULD BE BIOPSIED. Dictated by: Armando Barry M.D. on 10/08/2023 at 13:46 Approved by: Armando Barry M.D. on 10/08/2023 at 13:49 Dictated By: Armando Barry M.D. Signed By: 10/08/23 1350 DD/ 1349 TD/TT: E Commerce Architect: Procedure Note Radiology, Radiologist, MD - 10/08/2023 [place] [address] Mammography Report Signed Patient: KATHIE LOPEZ MMR#: [id number] : 1975Acct:[id number] Age/Sex: 48 / FADM Date: 10/07/23 Loc: MAMMO Attending Dr: KERRI MARIN Ordering Physician: Jennifer MARINults: Date of Service: 10/07/23Follow Up: Procedure(s): MM tomosynthesis screening BI Accession Number(s): [id number] cc: IRMA CHASE ; KERRI MARIN Patient Name: KATHIE LOPEZ MR#: [id number] : 1975 Exam Date: 10/07/2023 Ordering Doctor: KERRI Galindo RADIOLOGY REPORT PROCEDURE: MM TOMOSYNTHESIS SCREENING BI COMPARISON: MM TOMOSYNTHESIS SCREENING BI, 10/04/2022. MG MAMM IEYLBE0C ANTHONY CAD, 09/25/2021. MG MAMM SCREEN 3D ANTHONY CAD, 09/22/2020. MG MAMM SCREENBIL W CAD, 06/14/2017. INDICATIONS: Screening Calculator Name NCI Breast Cancer Risk Assessment Tool 5 Year Breast Cancer Risk 0.80% Lifetime Breast Cancer Risk 8.50% Personal Breast Cancer No Personal Ovarian Cancer No Treatments None Family Cancers None LOCATION: [facility] BREAST COMPOSITION: There are scattered areas of fibroglandulardensity. FINDINGS: DIAGNOSTIC CATEGORY 2--BENIGN FINDING: RIGHT BREAST: No significant suspicious finding. Scatteredbenign-appearing lymph nodes are present. No significant change has occurred. LEFT BREAST: No significant suspicious finding. Scatteredbenign-appearing lymph nodes are present. No significant change has occurred. RECOMMENDATIONS: ROUTINE MAMMOGRAM AND CLINICAL EVALUATION IN 12 MONTHS. PLEASE NOTE: A NORMAL MAMMOGRAM DOES NOT EXCLUDE THE POSSIBILITY OFBREAST CANCER. A CLINICALLY SUSPICIOUS PALPABLE LUMP SHOULD BE BIOPSIED. Dictated by: Armando Barry M.D. on 10/08/2023 at 13:46 Approved by: Armando Barry M.D. on 10/08/2023 at 13:49 Dictated By: Armando Barry M.D. Signed By:10/08/23 1358 DD/ 1349 TD/TT: E Commerce Architect: us Kerri Marin [facility] Final Result documented in this encounter Visit Diagnoses Not on filedocumented in this encounter Care Teams Wire Tinner Relationship Specialty Start Date End Date Irma Chase MD [address] [place] [address] PCP - General Family Medicine 07/23/22 Irma Chase MD [address] [place], [place] [phone] PCP - Medical [place] [employer] 01/21/23 03/03/99 documented as of this encounter
--- OUTSIDE RECORDS SUMMARY | 2024-10-14 11:22 | XMS_ITS | Encounter Summary ---
Author Organization [facility] Healthcare Address [address] [place] [address] Care Team Providers Care Recording Studio Internship Name Role Phone Erlinda Mauricio MD Primary Care Provider [phone] Erlinda Mauricio MD Unavailable Encounter Details Date Type Department Care Team (Late st Contact Info) Description 10/21/2023 Orders Only [facility] [address] [place] [address] Bari Knowles MD [address] [place] [address] Social History Tobacco Use Types [...] often do you attend chur ch or druze services? 1 to 4 times per year 12/17/2022 Do you belong to any clubs o r organizations such as worship groups, unions, fraternal or athletic groups, or [...] Recorded Patient Health Questionnaire-2 Score 0 08/19/2023 [facility] - Occupational Stress Questionnaire Answer Date [...] place to sleep or slept in a long term (including now)? No 12/17/2022 Comments Unknown Sex and Gender Information Value Date Recorded Sex Assigned at Not on file Legal Sex Female 6:36 PM EDT Gender Identity Not on file Sexual Orientation Not on file documented as of this encounter Plan of Treatment Upcoming Encounters Date Type Department Care Team (Late st Contact Info) Description 01/26/2025 4:00 PM EST Office Visit [facility] [address] [facility] [place] [address] Erlinda Mauricio MD [address] [facility] [address] [place], [place] [phone] documented as of this encounter Procedures Procedure Name Priority Date/Time Associated Diagnosis Comments XR IVP Routine 10/18/2023 7:46 PM EDT documented in this encounter Results * XR IVP (10/18/2023 7:46 PM EDT) Anatomical Region Laterality Modality Radiographic Josee ging us Bari Knowles MD IMG XR PROCEDURES Final Result documented in this encounter Visit Diagnoses Not on filedocumented in this encounter Care Teams Recording Studio Internship Relationship Specialty Start Date End Date Erlinda Mauricio MD [address] [facility] [place] [address] PCP - General Family Medicine 07/23/22 Erlinda Mauricio MD [address] [place] [address] PCP - Medical [place] [employer] 01/21/23 03/03/99 documented as of this encounter
--- OUTSIDE RECORDS SUMMARY | 2024-10-14 11:22 | XMS_ITS | Clinical Summary ---
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 Take with meals. 180 tablet 1 4 Active Additional Information Patient taking differently:500 mg OralDaily, 1 tablet in AM; 1/2 tablet in PM, Reported on 07/28/2024 QUEtiapine (SEROquel) 25 MG tabletIndication s:Insomnia, unspecified type Take 1 tablet (25 mg) by mouth at bedtime 90 tablet 3 4 Active loratadine (Allergy) 10 MG tabletIndication s:Allergic rhinitis due to pollen, unspecified seasonality Take 1 tablet (10 mg) by mouth Daily 90 tablet 1 4 Active glucose blood test stripIndications :Controlled type 2 diabetes mellitus with hyperglycemia, without long-term current use of insulin (HCC) Use as instructed 100 each 12 4 10/23/19 25 Active Lancets miscIndications: Controlled type 2 diabetes mellitus with hyperglycemia, without long-term current use of insulin (HCC) 1 Application in the morning and 1 Application before bedtime. 30 each 3 4 Active venlafaxine XR (Effexor XR) 150 MG 24 hr capsuleIndicatio ns:Anxiety Take 1 capsule (150 mg) by mouth Daily 90 capsule 3 5 Active metoprolol tartrate (Lopressor) 25 MG tabletIndication s:Essential hypertension Take 1 tablet (25 mg) by mouth in the morning and 1 tablet (25 mg) before bedtime. 180 tablet 3 5 Active fluticasone (Flonase) 50 MCG/ACT nasal sprayIndications :Allergic rhinitis due to pollen, unspecified seasonality Administer 1 spray into each nostril Daily Shake gently. Before first use, prime pump. After use, clean tip and replace cap. 16 g 2 5 04/30/19 26 Active atorvastatin (Lipitor) 10 MG tabletIndication s:Controlled type 2 diabetes mellitus with hyperglycemia, without long-term current use of insulin (HCC) Take 1 tablet (10 mg) by mouth Daily 90 tablet 1 5 Active Dulaglutide (Trulicity) 1.5 MG/0.5ML solution auto-injectorInd ications:Control led type 2 diabetes mellitus with hyperglycemia, without long-term current use of insulin (HCC) Inject 1.5 mg under the skin every 7 (seven) days 6 mL 1 5 01/26/20 25 Active cloNIDine (Catapres) 0.1 MG tabletIndication s:Hot flashes TAKE 1 TABLET AT BEDTIME 90 tablet 1 5 Active Active Problems Problem Noted Date Diagnosed Date PTSD (post-traumatic stress disorder) 06/02/2024 Lymphocytosis 12/05/2023 EDWARD inhibitor intolerance 10/22/2023 Grade II internal hemorrhoids 10/03/2023 Adenomatous polyp of transverse colon 10/03/2023 Colon cancer screening 08/06/2023 Controlled type 2 diabetes m ellitus with hyperglycemia, without long-term current use of insulin 11/27/2022 Essential hypertension 11/27/2022 H/O hysterectomy for benign disease 11/27/2022 Low vitamin D level 11/27/2022 Obesity (BMI 30-39.9) 11/27/2022 Hypertriglyceridemia 09/25/2019 Current moderate episode of major depressive disorder without prior episode 01/22/2019 Anxiety 11/16/2016 Allergic rhinitis 03/27/2016 Insomnia 03/27/2016 Vitamin D deficiency 11/16/2015 Encounters Date Type Department Care Team Description 09/25/2024 Results Follow-Up [facility] [address] [facility] [place] [address] Alix Cox NP 08/08/2024 Refill [facility] [address] [place] [address] Erlinda Chase MD Hot flashes 07/28/2024 4:00 PM EDT Office Visit [facility] [address] [facility] [place] [address] Erlinda Chase MD Current moderate episode of major depressive disorder without prior episode (HCC) (Primary Dx); Controlled type 2 diabetes mellitus with hyperglycemia, without long-term current use of insulin (HCC); Essential hypertension ; Hypertriglyceridemia ; Obesity (BMI 30-39.9); PTSD (post-traumatic stress disorder) 07/28/2024 Bamboo flowsheet [facility] [address] [place] [address] Erlinda Chase MD 07/28/2024 Travel 07/21/2024 Travel from Last 3 Months Immunizations Immunization Administration Dates Next Due Tdap 07/18/2021,12/26/2007,03/04/2005 Family History Medical History Relation Name Comments Heart disease Mother [place] Hypertension Mother [place] Heart failure Paternal Grandfather Hypertension Paternal Grandfather Relation Name Status Comments Father Alive Mother [place] Alive Paternal Grandfather Social History Tobacco Use Types Packs/Day Years Used Date Smoking Tobacco: Never Smokeless Tobacco: Never Tobacco Cessation:Counseling Given: Not Answered Alcohol Use Standard Drinks/Week Comments Yes 1 (1 standard drink = 0.6 oz pur e alcohol) Once a month if that B1300 Health Literacy Answer Date Recor ded How often do you need to hav e someone help you when you read instructions, pamphlets, or other written material from your doctor or pharmacy? Never 04/25/2024 Humiliation, Afraid, Rape, and Kick questionnair e [...] family, friends, or neighbors? Once a week 04/25/19 How often do you get togethe r with friends or relatives? Once a week 04/25/2024 How often do you attend [facility] or budd[facility] services? 1 to 4 times per year 04/25/2024 Do you belong to any clubs o r organizations such as faith groups, unions, fraternal or athletic groups, or school groups? No 04/25/2024 How often do you attend meet ings of the clubs or organizations you belong to? Never 04/25/2024 Are you , , di vorced, , never , or living with a partner? 04/25/2024 AUDIT-C Answer Date Recorded Q1: How often do you have a drink containing alc ohol? Monthly or less 04/25/2024 Q2: How many drinks containi ng alcohol do you have on a typical day when you are drinking? 1 or 2 04/25/2024 Q3: How often do you have si x or more drinks on one occasion? Never 04/25/2024 Overall Financial Resource Strain (CARDIA) Answe r Date Recorded How hard is it for you to pa y for the very basics like food, housing, medical care, and heating? Not very hard 04/25/2024 PHQ-2 Answer Date Recorded Patient Health Questionnaire-2 Score 0 07/28/2024 [facility] Occup[facility] - Occupational Stress Questionnaire Answer Date Recorded Do you feel stress - tense, restless, nervous, or anxious, or unable to sleep at night because your mind is troubled all the time - these days? To some extent 04/25/2024 Exercise Vital Sign Answer Date Recorde d On average, how many days pe r week do you engage in moderate to strenuous exercise (like a brisk walk)? 0 days 04/13/2024 On average, how many minutes do you engage in exercise at this level? 10 min 04/13/2024 Hunger Vital Sign Answer Date Recorded Within the past 12 months, y ou worried that your food would run out before you got the money to buy more. Never true 04/25/19 25 Within the past 12 months, t he food you bought just didn't last and you didn't have money to get more. Never true 04/25/2024 PRAPARE - Transportation Answer Date Re corded In the past 12 months, has l ack of transportation kept you from medical appointments or from getting medications? No 04/05 In the past 12 months, has l ack of transportation kept you from meetings, work, or from getting things needed for daily living? No 04/25/2024 Housing Stability Vital Sign Answer Ousmane e [...] a long term (including now)? No 12/17/2022 Housing Stability Vital Sign Answer Ousmane e Recorded In the last 12 months, was t here a time when you were not able to pay the mortgage or rent on time? No 04/25/2024 In the past 12 months, how m any times have you moved where you were living? 0 04/25/2024 At any time in the past 12 m [facility], were you homeless or living in a long term (including now)? No 04/25/2024 Comments Unknown Sex and Gender Information Value Date Recorded Sex Assigned at Not on file Legal Sex Female 6:36 PM EDT Gender Identity Not on file Sexual Orientation Not on file Last Filed Vital Signs Vital Sign Reading Time Taken Comments Blood Pressure 126/74 07/28/2024 3:40 PM EDT Pulse 91 07/28/2024 3:40 PM EDT Temperature 35.8 C (96.4 F) 04/30/2024 3:41 PM EST Respiratory Rate 18 07/28/2024 3:40 PM EDT Oxygen Saturation 100% 07/28/2024 3:40 PM EDT Inhaled Oxygen Concentration - - Weight 106 kg (234 lb) 07/28/2024 3:40 PM EDT Height 172.7 cm (5' 8 ) 07/28/2024 3:40 PM EDT Body Mass Index 35.58 07/28/2024 3:40 PM EDT Plan of Treatment Upcoming Encounters Date Type Department Care Team (Late st Contact Info) Description 01/26/2025 4:00 PM EST Office Visit [facility] [address] [place] [address] Erlinda Chase MD [address] [place] [address] Health Maintenance Due Date Last Done Comments CT Colonography 1977 FIT-DNA 1977 FIT 1975 FOBT 1975 Sigmoidoscopy 1975 Diabetes: Retinopathy Screening 09/06/2024 , 08/17/2021 Mammogram 10/07/2024 10/08/2023, 08/0 05/2022, 09/25/2021, Additional history exists Diabetes: Urine Protein Screening 10/22/2024 10/23/2023, 12/25/2022, 03/20/2021 Diabetes: Hemoglobin A1C 10/28/2024 025, 04/30/2024, 10/22/2023, Additional history exists Influenza Vaccine (#1) 2024 Colonoscopy 09/26/2033 09/27/2023 Colorectal Cancer Screening 09/26/2033 Cervical Cancer Screening Discontinued Pap Smear Discontinued 10/22/2023 HPV/Cotest Discontinued Goals Goal Patient Goal Type Associated Problems Recent Progress Patient-Stated? Author Help patient manage antidepressant medication Care Plan Patient on antidepressant monitoring plan No Erlinda Chase MD Baseline PHQ-9 Care Plan Baseline PHQ-9 No Erlinda Chase MD Procedures Procedure Name Priority Date/Time Associated Diagnosis Comments CORTISOL, TOTAL Routine 09/24/2024 10:33 AM EDT Controlled type 2 diabetes mellitus with hyperglycemia, without long-term current use of insulin (HCC) POCT GLYCOSYLATED HEMOGLOBIN (HGB A1C) Routine 07/28/2024 3:51 PM EDT Controlled type 2 diabetes mellitus with hyperglycemia, without long-term current use of insulin (HCC) MICROALBUMIN / CREATININE URINE RATIO Routine 10/23/2023 8:00 AM EDT Controlled type 2 diabetes mellitus with hyperglycemia, without long-term current use of insulin (HCC) THINPREP TIS PAP AND HPV MRNA E6/E7 WITH REFLEX TO HPV 16,18/45 Routine 10/22/2023 3:54 PM EDT Encounter for gynecological examination without abnormal finding MM TOMOSYNTHESIS SCREENING BI 10/08/2023 1:49 PM EDT COLONOSCOPY Routine 09/27/2023 8:45 AM EDT DIABETIC RETINOPATHY SCREENING - OU - BOTH EYES Routine 09/06/2022 6:28 PM EDT from Last 3 Months or Most Recently Relevant to Health Maintenance Results * Cortisol (09/24/2024 10:33 AM EDT) [facility] Signature CORTISOL, TOTAL 11.2 mcg/dL [facility] Comment: Reference Range: For 8 a.m.(7-9 a.m.) Specimen: 4.0-22.0 Reference Range: For 4 p.m.(3-5 p.m.) Specimen: 3.0-17.0 * Please interpret above results accordingly * Blood Venous blood specimen / Unknown 09/24/2024 10:33 AM EDT 09/24/2024 10:33 AM EDT Narrative Resulting Agency Comment Performing Organization Information Site ID: QPT Name: [facility] Address: [address] [place] [address], [address] [place] [phone] Director: Hector Holman MD Erlinda Chase MD LAB BLOOD ORDERABLES Final Resul t [facility] * (ABNORMAL) POCT glycosylated hemoglobin (Hb A1C) docked device (07/28/2024 3:51 PM EDT) Pathologist [facility] Hemoglobin A1C 6.2 Blood Venous blood specimen / Unknown 07/28/2024 3:51 PM EDT Erlinda Chase MD POINT OF CARE TEST ENTER/EDIT OR DERABLES Final Result * Microalbumin / creatinine urine ratio (10/23/2023 8:00 AM EDT) Pathologist [facility] CREATININE, RANDOM URINE 130 20 - 275 mg/dL [facility] ALBUMIN, URINE 1.1 See Note: mg/dL [facility] Comment: Reference Range: Reference Range Not established ALBUMIN/CREATININE RATIO, RANDOM URINE 8 <30 mg/g creat [facility] Comment: The ADA defines abnormalities in albumin excretion as follows: Albuminuria Category Result (mg/g creatinine) Normal to Mildly increased <30 Moderately increased 30-299 Severely increased > OR = 300 The ADA recommends that at least two of three specimens collected within a 3-6 month period be abnormal before considering a patient to be within a diagnostic category. Urine Urine specimen obtained by clean catch procedure / Unknown 10/23/2023 8:00 AM EDT 10/23/2023 4:03 PM EDT Narrative Resulting Agency Comment Performing Organization Information Site ID: QPT Name: [facility] Address: [address] [place] [address], [address] [place] [phone] Director: Hector Holman MD Kerri Marin NP LAB URINE ORDERABLES Final Resul t [facility] * THINPREP TIS PAP AND HPV MRNA E6/E7 WITH REFLEX TO HPV 16,18/45 (10/22/2023 3:54 PM EDT) Pathologist [facility] CLINICAL INFORMATION [facility] Comment:None given LMP [facility] Comment:NONE GIVEN PREV. PAP [facility] Comment:NONE GIVEN PREV. BX [facility] Comment:NONE GIVEN SOURCE [facility] Comment:None given STATEMENT OF ADEQUACY [facility] Comment: Satisfactory for evaluation. Endocervical/transformation zone component absent. INTERPRETATION/RESU LT [facility] Comment: Cytology Results: Negative for intraepithelial lesion or malignancy. COMMENT [facility] Comment: This Pap test has been evaluated with computer assisted technology. LABORATORY EQUIPMENT INSTALLER [facility] Comment: ELP, CT(ASCP) CT Screening Location: [place] [address] (ALWAYS MESSAGE) [facility] Comment: EXPLANATORY NOTE: The Pap is a screening test for cervical cancer. It is not a diagnostic test and is subject to false negative and false positive results. It is most reliable when a satisfactory sample, regularly obtained, is submitted with relevant clinical findings and history, and when the Pap result is evaluated along with historic and current clinical information. HPV MRNA E6/E7 Not Detected Not Detected [facility] Comment: Methodology: Aircraft Maintenance Manager-Mediated Amplification This assay detects E6/E7 viral messenger RNA (mRNA) from 14 high-risk HPV types (16,18,31,33,35,39,45,51,52,56,58,59,66,68). Cervical sources are required for HPV testing. If a vaginal source from a patient who has had a total hysterectomy with removal of cervix was submitted, please contact the testing laboratory for alternative testing options. For additional information, please refer to http://education.Mibio/faq/FTM893x1 (This link if provided for information/ educational purposes only.) Swab 10/22/2023 3:54 PM EDT 10/23/2023 2:30 AM EDT Narrative [facility] - 10/24/2023 3:17 PM EDT MULTIPLE COLLECTION TIMES FOR SAME TEST TYPE. Resulting Agency Comment Performing Organization Information Site ID: [id number] Name: [facility] Address: [address] [facility], [address] [place] [phone] Director: Hector Holman MD Site ID: [id number] [facility] Address: [address] [place] [address] [place] [address] Director: Lewis Will Kerri Marin NP LAB CYTOLOGY ORDERABLES Final Re sult [facility] * MM ROSEMARIEOSYNTHESIS SCREENING BI (10/08/2023 1:49 PM EDT) Anatomical Region Laterality Modality Other 10/08/2023 1:49 PM EDT Narrative 10/08/2023 1:50 [place] [address] Mammography Report Signed Patient: KATHIE LOPEZ MR#: [id number] : 1975 Acct:[id number] Age/Sex: 48 / F ADM Date: 10/07/23 Loc: MAMMO Attending Dr: KERRI MARIN Ordering Physician: KERRI MARIN Results: Date of Service: 10/07/23 Follow Up: Procedure(s): MM tomosynthesis screening BI Accession Number(s): [id number] cc: ERLINDA CHASE ; KERRI MARIN Patient Name: KATHIE LOPEZ MR#: [id number] : 1975 Exam Date: 10/07/2023 Ordering Doctor: [...] Treatments None Family Cancers None LOCATION: [facility] BREAST COMPOSITION: There are scattered areas of [...] By: Armando Barry M.D. Signed By: 10/08/23 1354 DD/ 1349 TD/TT: Optometry Teacher: Procedure Note Radiology, Radiologist, MD - 10/08/2023 [place] [address] Mammography Report Signed Patient: KATHIE LOPEZ MMR#: [id number] : 1975Acct:[id number] Age/Sex: 48 / FADM Date: 10/07/23 Loc: MAMMO Attending Dr: KERRI MARIN Ordering Physician: Jennifer MARINults: Date of Service: 10/07/23Follow Up: Procedure(s): MM tomosynthesis screening BI Accession Number(s): [id number] cc: ERLINDA CHASE ; KERRI MARIN Patient Name: KATHIE LOPEZ MR#: [id number] : 1975 Exam Date: 10/07/2023 Ordering Doctor: KERRI Galindo RADIOLOGY REPORT PROCEDURE: MM TOMOSYNTHESIS SCREENING BI COMPARISON: MM TOMOSYNTHESIS SCREENING BI, 10/04/2022. MG MAMM [id number] ANTHONY CAD, 09/25/2021. MG MAMM SCREEN 3D ANTHONY CAD, 09/22/2020. MG MAMM SCREENBIL W CAD, 06/14/2017. INDICATIONS: Screening Calculator Name NCI Breast Cancer Risk Assessment Tool 5 Year Breast Cancer Risk 0.80% Lifetime Breast Cancer Risk 8.50% Personal Breast Cancer No Personal Ovarian Cancer No Treatments None Family Cancers None LOCATION: [facility] BREAST COMPOSITION: There are scattered areas of [...] M.D. on 10/08/2023 at 13:46 Approved by: rAmando Barry M.D. on 10/08/2023 at 13:49 Dictated By: Armando Barry M.D. Signed By:10/08/23 1350 DD/ 1349 TD/TT: Optometry Teacher: Kerri Marin CHARM FILTER OPERATOR [facility]PER [facility] Final Result * Colonoscopy (09/27/2023 8:45 AM EDT) Anatomical Region Laterality Modality Endoscopy Gregorio Cheng DO ENDOSCOPY PROCEDURE ORDERABLES Final Result * Diabetic Retinopathy Screening - OU - Both Eyes (09/06/2022 6:28 PM EDT) Anatomical Region Laterality Modality Head Other Erlinda Chase MD OPHTH PHOTOGRAPHY Edited Result - Final from Last 3 Months or Most Recently Relevant to Health Maintenance Additional Health Concerns Active Problems Noted Date Diagnosed Date Patient on antidepressant monitoring plan 2024 Baseline PHQ-9 04/30/2024 Insurance [employer] Care Teams 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
--- NOTE | 2024-10-14 11:25 | MM_ITS ---
Patient Name: IRENE SAMPSON MR#: [id number] : 1975 Exam Date: 10/14/2024 Ordering Doctor: DR IRMA CHASE M.D. RADIOLOGY REPORT PROCEDURE: MM TOMOSYNTHESIS SCREENING BI COMPARISON: MM TOMOSYNTHESIS SCREENING BI, 10/07/2023. MM TOMOSYNTHESIS SCREENING BI, 10/04/2022. MG MAMM SCREEN 3D ANTHONY CAD, 09/25/2021. MG MAMM SCREEN ANTHONY W CAD, 06/14/2017. INDICATIONS: Screening Calculator Name NCI Breast Cancer Risk Assessment Tool 5 Year Breast Cancer Risk 0.80% Lifetime Breast Cancer Risk 8.40% Personal Breast Cancer No Personal Ovarian Cancer No Treatments None Family Cancers None LOCATION: [facility] BREAST COMPOSITION: There are scattered areas of fibroglandular density. FINDINGS: RIGHT BREAST: No significant suspicious finding. LEFT BREAST: No significant suspicious finding. DIAGNOSTIC CATEGORY 1--NEGATIVE. RECOMMENDATIONS: ROUTINE MAMMOGRAM AND CLINICAL EVALUATION IN 12 MONTHS. PLEASE NOTE: A NORMAL MAMMOGRAM DOES NOT EXCLUDE THE POSSIBILITY OF BREAST CANCER. A CLINICALLY SUSPICIOUS PALPABLE LUMP SHOULD BE BIOPSIED. Dictated by: David Hawkins MD on 10/14/2024 at 14:39 Approved by: David Hawkins MD on 10/14/2024 at 14:52
--- OUTSIDE RECORDS SUMMARY | 2024-10-14 11:27 | XMS_ITS | CCD ---
Author Organization [facility] Care Team Providers Care Teaching Associate Name Role Phone VALENTINE Clemente Attending Provider ONELIA, DR DE ANDA Consulting Unavailable ONELIA, DR DE ANDA Attending Unavailable SALVATORE, DR SOLIS Primary Care Unavailable ONELIA, DR DE ANDA Admitting Unavailable MARQUES, DR GISELA Teague Consulting Unavailable DO Gregorio Maldonado Attending Provider GILLES MAURICIO Primary Care Physician MD Reji Castellano Attending Provider MD Gilles Mauricio Primary Care Provider Gilles Mauricio Primary Care Unavailable Reji Castellano Attending Unavailable Reji Castellano Admitting Unavailable Gregorio Maldonado Attending Unavailable Gregorio Maldonado Admitting Unavailable KERRI MANZANARES Referring Unavailable GILLES MAURICIO Primary Care Unavailable JENIFFER BRISCOE Attending Unavailable GILLES MAURICIO Referring Unavailable GILLES MAURICIO Primary Care Unavailable Gilles Mauricio MD Primary Care Provider Kerri Manzanares NP Unavailable Gilles Mauricio MD Unavailable Gilles Mauricio MD Primary Care Provider Dwain Foley Admitting Unavailable Dwain Foley Attending Unavailable Mandy Tejeda Attending Unavailable Reji CASTELLANO Attending Unavailable GILLES MAURICIO Referring Unavailable Dwain Foley Attending Unavailable Mandy Tejeda Attending Unavailable GILLES MAURICIO Referring Unavailable Mandy Tejeda MJuliana Admitting Unavailable Mandy Tejeda Attending Unavailable Mandy Tejeda Referring Unavailable DAVID CHRISTENSEN Attending Unavailab GILLES Park Attending Unavailable GILLES MAURICIO Referring Unavailable APPLE BOYD Attending Unavailable SALVATORE, GILLES F Referring Unavailable SHARON, APPLE Attending Unavailable SALVATORE, GILLES F Referring Unavailable SHARON, APPLE Attending Unavailable SALVATORE, GILLES Burdick Referring Unavailable GREGORIO MALDONADO Attending Unavailable KERRI MANZANARES Referring Unavailable MANZANARESKERRI Attending Unavailable SALVATORE, GILLES Burdick Attending Unavailable SALVATORE, GILLES Burdick Referring Unavailable GREGORIO MALDONADO Attending Unavailable REJI CASTELLANO Referring Unavailable KERRI MANZANARES Attending Unavailable SALVATORE, GILLES Burdick Attending Unavailable Mandy Tejeda Attending Unavailable Mandy Tejeda Attending Unavailable Allergies Allergy Classification Reported Allergen(s) Allergy Type Date of Onset Reaction(s) Facility (20 sources) LEVONORGESTREL-E THINYL ESTRAD; Translations: [LEVONORGESTREL- ETHINYL ESTRAD] Propensity to adverse reactions to drug (disorder) 4 [facility] (20 sources) Octacosanol Propensity to adverse reactions 4 [facility] (2 sources) No Known Medication Allergies; Translations: [No Known Medication Allergies] Propensity to adverse reactions (disorder) [facility] Repository Medications Current Medications Medication Drug Class(es) Dates Sig (Normalized) Sig (Original) 0.25 MG, 0.5 MG Dose 3 ML semaglutide 0.68 MG/ML Pen Injector [Ozempic] (1 source) Start: 10-15-2023 Ozempic 2 mg/3 mL (0.25 mg or 0.5 mg dose) subcutaneous solution 0.25 mg Start Date: 10/15/23 Status: Ordered Allergy (4 sources) Start: 02-27-2019 take 1 mg by mouth three times daily Allergy mg, Oral, TID, Refills(s) 0 Start Date: 02/27/19 Status: Ordered Repeat number: 1 Start: 02-27-2019 take 1 mg by mouth t hree times daily Allergy mg, Oral, TID, Refills(s) 0 Start Date: 02/27/19 Status: Ordered atorvastatin 10 mg oral tablet (20 sources) HMG-CoA Reductase Inhibitor Start: 05-04-2023 End: 10-22-2023 take 1 tablet by mouth once daily atorvastatin (Lipitor) 10 MG tablet Indications: Controlled type 2 diabetes mellitus with hyperglycemia, without long-term current use of insulin ([facility]) Take 1 tablet (10 mg) by mouth Daily 90 tablet 1 06/09/2024 Active Atorvastatin Dewey cium Active cephalexin 500 [...] Active cloNIDine hydrochloride 0.1 mg oral tablet (20 sources) Central alpha-2 Adrenergic Agonist Start: 04-30-2024 End: 08-28-2024 cloNIDine 0.1 mg tab 0.1 mg = 1 tab(s), Refills(s) 0 Start Date: 05/20/24 Status: Ordered Repeat number: 1 0.5 ml dulaglutide 3 mg/ml auto-injector (20 sources) GLP-1 Receptor Agonist Start: 07-28-2024 Dulaglu tide (Trulicity) 1.5 MG/0.5ML solution auto-injector Indications: Controlled type 2 diabetes mellitus with hyperglycemia, without long-term current use of insulin ([facility]) Inject 1.5 mg under the skin every 7 (seven) days 3 mL 11 07/28/2024 Active Start: 04-30-2024 End: 07-28-2024 Trulicity Pen 0.75 mg/0.5 mL subcutaneous solution 0.75 mg, Refills(s) 0 Start Date: 05/20/24 Status: Ordered Repeat number: 1 estrogens, conjugated (shelter) 0.9 mg oral tablet (4 sources) Estrogen Start: 03-15-2020 Premarin 0.9 m g, Oral Start Date: 03/15/20 Status: Ordered Repeat number: 1 ferrous sulfate (3 sources) End: 04-14-2024 take [...] propionate 0.05 mg/actuat metered dose nasal spray (20 sources) Corticosteroid Start: 02-14-2024 End: 04-30-2025 take 1 spray(s) nasal route once daily fluticasone (Flonase) 50 MCG/ACT nasal spray Indications: Allergic rhinitis due to pollen, unspecified seasonality Administer 1 spray into each nostril Daily Shake gently. Before first use, prime pump. After use, clean tip and replace cap. 16 g 2 04/30/2024 04/30/2025 Active Flonase Active loratadine 10 mg oral tablet (20 sources) Start: 10-22-2023 End: 10-22-2023 take 1 tablet by mouth once daily loratadine (Allergy) 10 MG tablet Indications: Allergic rhinitis due to pollen, unspecified seasonality Take 1 tablet (10 mg) by mouth Daily 90 tablet 1 10/22/2023 Active Loratadine Activ e metFORMIN hydrochloride 500 mg oral tablet (20 sources) Biguanide Start: 02-27-2019 End: 10-22-2023 take 1 mg by mouth once daily metformin 500 mg ER Tab mg tab(s), Oral, Daily, Refills(s) 0 Start Date: 02/27/19 Status: Ordered Repeat number: 1 methylPREDNISolone (1 source) Corticosteroid Start: 05-07-2018 Depo-Medrol [...] Refills(s) 0 Start Date: 02/27/19 Status: Ordered Repeat number: 1 Metoprolol-hydroCHLOROthiazi de (1 source) Metoprolol-hydro CHLOROthiazide Active ictdthjh-wmeb-MP-calcium &mi ns (THERAGRAN-M) 9 mg iron-400 mcg tablet (2 sources) ncvucwbt-fyir-BO -calcium &mins (THERAGRAN-M) 9 mg iron-400 mcg tablet Take 1 tablet by mouth in the morning. Active Multivitamin preparation (1 source) Multivitamin Act shi Ozempic (1 source) Ozempic Active OZEMPIC 0.25 mg or 0.5 mg (2 mg/3 mL) pen injector (2 sources) S t a r t : 0 8 - 2 0 - 2 0 2 4 OZEMPIC 0.25 mg or 0.5 mg (2 mg/3 mL) pen injector Inject 0.5 mg as directed once a week. 10/22/2023 Active Potassimin (1 source) Potassimin Activ e QUEtiapine 25 mg oral tablet (20 sources) Atypical Antipsychotic S t a r t : 0 8 - 2 0 - 2 0 2 4 take 1 tablet by mouth at bedtime QUEtiapine (SEROquel) 25 MG tablet Indications: Insomnia, unspecified type Take 1 tablet (25 mg) by mouth at bedtime 90 tablet 3 10/22/2023 Active Start: 02-27-2019 End: 10-22-2023 take 1 mg by mouth three times daily SEROquel 25 mg Tab mg tab(s), Oral, TID, Refills(s) 0 Start Date: 02/27/19 Status: Ordered Repeat number: 1 SEROquel Active tamsulosin hydrochloride 0.4 mg oral capsule (1 source) alpha-Adrenergic Marilou Start: 10-15-2023 End: 10-29-2023 take 1 capsule by mouth once daily Flomax 0.4 mg Cap 0.4 mg = 1 cap(s), Oral, Daily, X 14 day(s), # 14 cap(s), Refills(s) 0, Pharmacy: [id number], 173, cm, 10/15/23 14:19:00 EDT, Height/Length Dosing, [...] Refills(s) 0 Start Date: 02/27/19 Status: Ordered Repeat number: 1 Effexor Active Completed/Discontinued Medications Medication Drug Class(es) [...] hyperglycemia, without long-term current use of insulin ([facility]) INJECT 0.5 MG UNDER THE SKIN ONCE [...] Problem Date Documented Date Episodic/Chronic Abdominal pain (14 sources) Abdominal pain; Translations: [Unspecified abdominal pain] Onset: 10-15-2023 Episodic Anxiety disorders (20 sources) Anxiety disorder; Translations: [Anxiety] Onset: 11-16-2016 02-27-2019 Chronic Calculus of urinary tract (19 sources) Ureteric stone; Translations: [Calculus of ureter] Onset: 10-15-2023 Episodic Diabetes mellitus with complications (20 sources) Type 2 diabetes mellitus well controlled; Translations: [Type 2 diabetes mellitus with hyperglycemia] Onset: 11-27-2022 10-22-2023 Chronic Diabetes mellitus without complication (4 sources) Type 2 diabetes mellitus 10-15-2023 Chronic Diseases of white blood cells (20 sources) Lymphocytosis (symptomatic); Translations: [Leukocytosis] Onset: 11-29-2023 04-14-2024 Chronic Disorders of lipid metabolism (20 sources) Hyperlipidemia; Translations: [Hypertriglyceridemia ] Onset: 09-25-2019 10-15-2023 Chronic Essential hypertension (20 sources) Hypertensive disorder; Translations: [Essential hypertension] Onset: 11-27-2022 10-15-2023 Chronic Genitourinary symptoms and ill-defined conditions (2 sources) Dysuria; Translations: [Microscopic hematuria] 02-27-2019 Episodic Headache; including migraine (4 sources) Headache 10-15-2023 Episodic Mood disorders (20 sources) Depression; Translations: [Depressive disorder] Onset: 01-22-2019 02-27-2019 Chronic Nutritional deficiencies (20 sources) Vitamin D deficiency; Translations: [Vitamin D deficiency, unspecified] Onset: 11-16-2015 11-27-2022 Chronic Other ear and sense organ disorders (2 sources) Otalgia, right ear; Translations: [Otalgia, unspecified] 04-14-2024 Episodic Other lower respiratory disease (2 sources) Cough; Translations: [Cough, unspecified type] 04-14-2024 Episodic Other nutritional; endocrine; and metabolic disorders (20 sources) Body mass index 30+ - obesity; Translations: [Obesity, unspecified] Onset: 11-27-2022 10-22-2023 Chronic Other upper respiratory disease (4 sources) Allergic rhinitis due to pollen; Translations: [Allergic rhinitis due to pollen] 10-22-2023 Chronic Other upper respiratory disease (20 sources) Allergic rhinitis; Translations: [Allergic rhinitis, unspecified] [...] sources) Flushing; Translations: [Flushing] 04-30-2024 Episodic Unclassified (17 sources) Patient on antidepressant monitoring plan Onset: 04-30-2024 04-30-2024 Unclassified (17 sources) Baseline PHQ-9 Onset: 04-30-2024 04-30-2024 Urinary tract infections (1 source) Acute cystitis; Translations: [Acute cystitis without hematuria] 05-03-2024 Episodic Past or Other Problems Problem Classification Problem Date Documented Da te Episodic/Chronic Hemorrhoids (20 sources) Internal hemorrhoids grade II; Translations: [Second degree hemorrhoids] Onset: 10-03-2023 10-03-2023 Episodic Mycoses (1 source) Mycosis; Translations: [Candidiasis, unspecified] 11-12-2023 Episodic Other and unspecified benign neoplasm (20 sources) Adenomatous polyp of colon ; Translations: [...] colon] Onset: 09-25-2021 Episodic Residual codes; unclassified (20 sources) History of hysterectomy for benign disease; Translations: [Acquired absence of both cervix and uterus] Onset: 11-27-2022 10-22-2023 Episodic Residual codes; unclassified (20 sources) Insomnia; Translations: [Insomnia, unspecified] Onset: 03-27-2016 10-22-2023 Episodic Residual codes; unclassified (20 sources) Other specified health status; Translations: [Other drug allergy] Onset: 10-22-2023 10-22-2023 Episodic Superficial injury; contusion (2 sources) Contusion of left knee, initial encounter; Translations: [Abrasion, left knee, initial encounter] Onset: 07-18-2021 Resolved: 07-18-2021 Episodic Results Test Name Value Interpretation Reference Range Facility Urology Office/Clinic Noteon 09-02-2024 Urology Office/Clinic Note Urology Office/Clinic Note Chief Complaint discuss kidney stones HPI Staff 49 yr old female here to discuss kidney stone Previous dx: kidney stone, ureteral stone, hx of kidney stones. S/P ESWL right 05/27/24 thinks that she may have passed or kidney stone moved on Saturday on the rt side denies pain/burning denies visible blood denies flank pain BBSQ: 5 History of Present Illness Tests reviewed: UA, MERARI, KUB, CT I have reviewed the previous health record information and history for this patient from Dwain Foley PA-C. I have reviewed and verified the staff [...] HPI. Physical Exam Vitals & Measurements HR: 77(Peripheral) RR: 16 BP: 138/88 HT: 173 cm HT: 68 in WT: 105.7 kg WT: 233.028 lb BMI: 35.32 General Appearance: alert, no distress, well nourished, well developed adult. Assessment/Plan 49 year old female patient who presents today for R flank pain. BBS 5. 1. Kidney stone (N20.0: Calculus of kidney) CT AP wo con 10/02/23 [facility] - The largest stone is in the RUP calyx 4 mm. No hydro. Distal L ureteral stone 2-3 mm. KUB 10/14/23 [facility] - Small R sided renal stone, ~3 mm. No ureteral stones noted. Personal review: L ureteral stone not appreciable. [place]18[place] [facility] [place] of distal L ureteral stone. 4 mm stone RSP. No hydro. KUB 04/30/24 [facility] - 5 mm RUP stone. No other stones. CT AP w/o con 05/20/24 - 5 mm RLP calculus. No left renal calculi. Mild right pelvocaliectasis w/ LLP caliectasis. No masses seen. S/p R ESWL 05/27/24. KUB/MERARI 06/23/24 - nonobstructing left renal calculi measuring up to 5 mm, no hydro. Having pain on the R, thinks she passed stone or stone moved on the R on Saturday. Reviewed imaging with pt - no hydro on stones on right. She had stone noted in the R per CT in May, this was subsequently treated with ESWL. She does have a new stone on the L per MERARI/KUB that was not seen by the May CT. If this is truly a stone, it grew very quickly. She is drinking one big water bottle daily, unsure volume. Stressed the importance of high fluid intake and dietary modifications. Would need CT to further evaluate given discordant symptoms and KUB/MERARI findings vs prior CT scan. She does not desire more imaging at this time given pain has resolved. If pain recurs, pt may call and next step would be order CT. If there is a R sided stone, would proceed with ureteroscopy with laser litho since stone not visible per xray. If there in fact is a new L stone, can be treated with ESWL if she desires, however she is asx. Follow up May 2025 with KUB and MERARI or sooner if needed. Pt understands and agrees with plan. -Pt to call or go to the ER if they were to experience fever, shaking, chills, uncontrolled nausea, vomiting, or pain -Or pt can call office if having pain, would order CT AP wo contrast with f/u afterwards to review. 2. Right flank pain (R10.9: Unspecified abdominal pain) See #1. Orders: Urnls Dip Stick Auto w/o Microscopy POC [id number] Follow-up With When Contact Information Nikhil FAGAN, Mandy Leonardo, URL, URO Additional Instructions: May 2025 with KUB and MERARI Patient Education Dietary Guidelines to Help Prevent Kidney Stones I, Geno Chu, personally scribed for Dr. Tejeda on 09/02/2024 10:09:36. . Documentation recorded by the scribe, Geno Chu, accurately reflects the services(s) I performed and decisions made by me. Authenticated by Dr. Tejeda on 09/02/2024 12:35:38. Problem List/Past Medical History Ongoing Depression Flank pain Headache History of kidney stones Hyperlipidemia Hypertension Kidney stone Right flank pain Type 2 diabetes mellitus Historical Anxiety disorder Depression Flank pain Nephrolithiasis Procedure/Surgical History Lithotripsy using laser (03/02/2019), Colonoscopy, Hysterectomy. Medications Allergy, Oral, TID atorvastatin 10 mg Tab, 10 mg= 1 tab(s), Oral, Daily cloNIDine 0.1 mg tab, 0.1 mg= 1 tab(s) Effexor XR, Oral, Daily metformin 500 mg ER Tab, Oral, Daily Metoprolol tartrate 50 mg Tab, Oral, BID Premarin, 0.9 mg, Oral SEROquel 25 mg Tab, Oral, TID Trulicity Pen 0.75 mg/0.5 mL subcutaneous solution, 0.75 mg Allergies No Known Medication Allergies Social History Alcohol Never., 05/15/2024 Substance Abuse Never., 05/15/2024 Tobacco Never (less (more content not included)... Normal [facility] Comment on above: Result Comment: Elec tronically Signed By: Mandy Tejeda MD\.br\Date and Time Signed: 09/02/24 12:36 EDT\.br\Electronically Co-Signed By: Geno Chu\.br\Date and Time Co-Signed: 09/02/24 10:10 EDT HbA1c (Bld) [Mass fraction]o n 07-28-2024 Interpretation and review of laboratory results [facility] countson 07-28-2024 HbA1c (Bld) [Mass fraction] 6.2 % [facility] Calculus Analysison 07-11-19 Calcium oxalate dihydrate Infrared spectroscopy (Stone) [Mass fraction] 20 % Invalid Interpretation Code [facility] Comment on above: Performed By: #### 1 [id number] #### [facility] [address] [place] [address] Calcium oxalate monohydrate (Stone) [Mass fraction] 80 % Invalid Interpretation Code [facility] Comment on above: Performed By: #### 1 [id number] #### [facility] [address] [place] [address] Color (Stone) Brown Invalid Interpretation Code [facility] Comment on above: Performed By: #### 1 [id number] #### [facility] [address] [id number] Laboratory comment Alon (Report) Comment Invalid Interpretation Code [facility] Comment on above: Result Comment: Calc ulus received wet. Wet calculi must be dried before analysis, which delays reporting of results. Leaving calculi wet (such as water, saline, blood, urine) may lead to changes in composition. Performed at: [facility] [address] [id number] PhD Junior Tony Performed By: #### 1 [id number] #### [facility] [address] [place] [address] Size (Stone) [Entitic vol] 2x2 Invalid Interpretation Code [facility] Comment on above: Result Comment: Sing le piece received. Performed By: #### 1 [id number] #### [facility] [address] [id number] Specimen source subject Nom Comment Invalid Interpretation Code [facility] Comment on above: Result Comment: Not provided Performed By: #### 1 [id number] #### [facility] [address] [place] [address] Weight (Stone) 1 mg Invalid Interpretation Code [facility] Comment on above: Performed By: #### 1 [id number] #### [facility] [address] [place] [address] Ambulatory Visit Summaryon 0 06-30-2024 Ambulatory Visit Summary Ambulatory Visit Summary IRENE LOPEZ :1975 Visit Date:06/30/2024 Ambulatory Visit Instructions Your Diagnosis Kidney stone Your Care Team Attending Physician - Alaina CHAMPION, Dwain Primary Care Physician - GILLES MAURICIO MD This Is Your Medications List atorvastatin (atorvastatin 10 mg Tab) clonidine (cloNIDine 0.1 mg tab) conjugated estrogens (Premarin) diphenhydrAMINE (Allergy) dulaglutide (Trulicity Pen 0.75 mg/0.5 mL subcutaneous solution) metformin (metformin 500 mg ER Tab) metoprolol (Metoprolol tartrate 50 mg Tab) quetiapine (SEROquel 25 mg Tab) venlafaxine (Effexor XR) Procedures Performed Lithotripsy using laser (03/02/2019), Colonoscopy, Hysterectomy. Discharge Vitals Temperature (Temporal Artery) 37.2 ???C Heart Rate (Peripheral) 76 Respiratory Rate 16 Blood Pressure 122/78 Height 68 in Height 173 cm Weight 227.517 lb Weight 103.2 kg BMI 34.48 Medications What How Much When Instructions Unchanged atorvastatin (atorvastatin 10 mg Tab) 1 Tablets By Mouth Every day Unchanged clonidine (cloNIDine 0.1 mg tab) 1 Tablets Unchanged conjugated estrogens (Premarin) 0.9 Milligram By Mouth Unchanged diphenhydrAMINE (Allergy) By Mouth 3 times a day Unchanged dulaglutide (Trulicity Pen 0.75 mg/ 0.5 mL subcutaneous solution) 0.75 Milligram Unchanged metformin (metformin 500 mg ER Tab) By Mouth Every day Unchanged metoprolol (Metoprolol tartrate 50 mg Tab) By Mouth 2 times a day Unchanged quetiapine (SEROquel 25 mg Tab) By Mouth 3 times a day Unchanged venlafaxine (Effexor XR) By Mouth Every day 100 mg Allergies No Known Medication Allergies Problems Ongoing - Any problem that you are currently receiving treatment for. Depression Flank pain Headache History of kidney stones Hyperlipidemia Hypertension Kidney stone Type 2 diabetes mellitus Historical - Any problem that you are no longer receiving treatment for. Anxiety disorder Depression Flank pain Nephrolithiasis Patient Survey You may receive a survey via text or e-mail asking about your office visit. Please share your experience with us by completing your survey. We appreciate your feedback and thank you for choosing us for your care. Normal [facility] Urology Office/Clinic Noteon 06-30-2024 Urology Office/Clinic Note Urology Office/Clinic Note Chief Complaint 1 month follow up from ESWL HPI Staff 49 year old female patient here for one month follow up with KUB/MERARI. KUB/MERARI done 06/23/24. Previous dx: kidney stone, ureteral stone, hx of kidney stones. S/P ESWL right 05/27/24 Has passed a stone a week after procedure. Pt has brought it in today in a sterile cup from home. Denies any urological issues BBSQ: 7 History of Present Illness I have reviewed and verified the staff HPI to be accurate for this encounter. Review of Systems PHQ Score Initial Depression Screen Score: 0 SCORE no fever, chills, malaise, myalgia. no abdominal pain, nausea, vomiting. Physical Exam Vitals & Measurements T: 37.2 ???C(Temporal Artery) HR: 76(Peripheral) RR: 16 BP: 122/78 HT: 173 cm HT: 68 in WT: 103.2 kg WT: 227.517 lb BMI: 34.48 General: Well developed, well nourished, in no acute distress. Assessment/Plan 49 year old female patient who presents today for 1 month follow up s/p ESWL 1. Kidney stone (N20.0: Calculus of kidney) CT AP wo con 10/02/23 N[facility] - The largest stone is in the RUP calyx 4 mm. No hydro. Distal L ureteral stone 2-3 mm. KUB 10/14/23 [facility] - Small R sided renal stone, ~3 mm. No ureteral stones noted. Personal review: L ureteral stone not appreciable. [place]18[place]23 [facility] [place] of distal L ureteral stone. 4 mm stone RSP. No hydro. KUB 04/30/24 [facility] - 5 mm RUP stone. No other stones. CT AP w/o con 05/20/24 - 5 mm RLP calculus. No left renal calculi. Mild right pelvocaliectasis w/ LLP caliectasis. No masses seen. KUB/MERARI 06/23/24 - nonobstructing left renal calculi measuring up to 5 mm, no hydro UA today negative for blood or infection Patient underwent R ESWL on 05/27/24 by GIORGI. Today, she presents for 1 month follow up since procedure. States she passed a stone fragment 1 week after her procedure. She brought stone into office today. Pt agreeable to send for stone analysis. Denies flank pain, gross hematuria or further stone events since she was last seen. Reviewed imaging today w/ patient which shows 5 mm nonobstructing left renal calculi. Reviewed prior imaging reports with patient, it appears this left kidney stone may be new, but I am unable to look at prior imaging to confirm. She reports she is not drinking as much water as she should, but has tried to increase her fluid intake since recent ESWL. Not on any meds that contribute to stone formation. She has a family hx of kidney stones. Reports she is still taking tamsulosin. Pt advised to stop at this time. We discussed further management options moving forward including general dietary modifications, metabolic stone work-up including serum labs and 24-hour urine analysis and continued surveillance with imaging in 6 to 12 months. Patient is not interested in metabolic work-up at this time. She will contact our office if she would like to proceed at any point. Discussed generalized stone prevention - pt encouraged to increase fluid intake so that he/she producing 2.5L of urine daily. Add 1/4 cup of lemon juice to water throughout the day or can also drink sugar free lemonade or clear soda. Avoid dark cam. Restrict sodium intake. Restrict animal protein. She would like continued surveillance of stone with imaging in 1 year. Patient to call sooner if needed, or if at any point she decides she would like left renal calculi treated. Patient informed that her left kidney stone is around 5 mm, so there is a good chance of being able to pass stone on her own. She verbalizes understanding. All questions answered. -D/c tamsulosin -Send stone for analysis, call pt w/ results -High fluid intake (1/4 cup lemon/[place] daily) -Diet mods (more fruits/veg, limit animal protein and salt) -ER for fever, chills, NV or severe flank pain -Follow up in 1 year w/ KUB and MERARI. Pt would like imaging complete at [facility]. Orders placed. -Pt to contact our office sooner if she wishes to proceed w/ metabolic work up at any point Ordered: Calculi Analysis Urinary Urnls Dip Stick Auto w/o Microscopy POC 50567 US Renal XR Abdomen 1 View 2. History of kidney stones (Z87.442: Personal history of urinary calculi) Has stone episodes every few years. Has never passed stones in the past on her own. + fam hx in mother, aunt, niece. Discussed metabolic workup including 24 hour urine and blood work for stone prevention but pt declines at this time. -See #1 -Consider metabolic w/u in the future if pt wishes to proceed Ordered: US Renal XR Abdomen 1 View Follow-up With When Contact Information Alaina CHAMPION, Dwain, URL Additional Instructions: F/U in 1 year w/ MERARI/KUB Patient Education Kidney Stones, Whby-ue-Gbnu Problem List/Past Medical History Ongoing Depression Flank pain Headache History of kidney stones Hyperlipidemia Hypertension Kidney stone Type 2 diabetes mellitus Historical Anxiety disorder Depression Flank pain Nephrolithiasis Procedure/Surgical H (more content not included)... Normal [facility] Comment on above: Result Comment: Elec tronically Signed By: Alaina CHAMPION, Dwain\.br\Date and Time Signed: 06/30/24 15:50 EDT US RENAL BIon 06-23-2024 [place] [address] Ultrasound Report Signed Patient: IRENE LOPEZ MR#: [id number] : 1975 Acct:[id number] Age/Sex: 49 / F ADM Date: 06/23/24 Loc: US Attending Dr: Dwain LOPEZ Ordering Physician: Dwain Foley Date of Service: 06/23/24 Procedure(s): US renal BI Accession Number(s): [id number] cc: GILLES MAURICIO ; Dwain Foley [place] [id number] Patient Name: IRENE LOPEZ MRN: [id number]:[id number] date: 1975 Sex: F Assigned Patient Location: Current Patient Location: US Accession/Order Number: [id number] Exam Date: 06/23/2024 09:23 Report Date: 06/23/2024 09:24 At the request of: DWAIN LOPEZ Procedure: US renal BI Bilateral Renal Ultrasound HISTORY: History of nephrolithiasis COMPARISON: None RIGHT kidney measures 11.6 cm. LEFT kidney measures 12.4 cm. Hydronephrosis: None RENAL STONE: Nonobstructing left renal calculi measuring up to 6 mm. RENAL LESIONS: No renal lesion identified. URINARY BLADDER: Unremarkable REPRODUCTIVE STRUCTURES Not assessed IMPRESSION : No hydronephrosis. Impression dictated by: Mitchel Sweet M.D.06/23/2024 9:24 AM Dictation Location: [place] [address] Electronically authenticated by: [id number] Y Date: 06/23/2024 09:24 Dictated By: Mitchel Sweet D.O. Signed By: 06/23/24926 DD/ 3 TD/TT: Chick Grader: [facility] Radiology, Radiologist, - 06/23/2024 [place] [address] Ultrasound Report Signed Patient: IRENE LOPEZ MR#: [id number] : 1975 Acct:[id number] Age/Sex: 49 / F ADM Date: 06/23/24 Loc: US Attending Dr: Dwain LOPEZ Ordering Physician: Dwain Foley Date of Service: 06/23/24 Procedure(s): US renal BI Accession Number(s): [id number] cc: GILLES MAURICIO ; Dwain Foley [place] [address] Patient Name: IRENE LOPEZ MRN: [facility]:[id number] date: 1975 Sex: F Assigned Patient Location: US Current Patient Location: US Accession/Order Number: [id number] Exam Date: 06/23/2024 09:23 Report Date: 06/23/2024 09:24 At the request of: DWAIN LOPEZ Procedure: US renal BI Bilateral Renal Ultrasound HISTORY: History of nephrolithiasis COMPARISON: None RIGHT kidney measures 11.6 cm. LEFT kidney measures 12.4 cm. Hydronephrosis: None RENAL STONE: Nonobstructing left renal calculi measuring up to 6 mm. RENAL LESIONS: No renal lesion identified. URINARY BLADDER: Unremarkable REPRODUCTIVE STRUCTURES Not assessed IMPRESSION : No hydronephrosis. Impression dictated by: Mitchel Sweet M.D.06/23/2024 9:24 AM Dictation Location: [place] [address] Electronically authenticated by: [id number] Y Date: 06/23/2024 09:24 Dictated By: Mitchel Sweet D.O. Signed By: 06/23/24926 DD/ 3 TD/TT: Chick Grader: [facility] Radiology Study observation (narrative) [facility] US RENAL BIOrdered By: Radio logist Radiology on 06-23-2024 [employer] Work Phone: XR ABDOMEN 1Von 06-23-[address] [address] XRay Report Signed Patient: IRENE LOPEZ MR#: [id number] : 1975 Acct:[id number] Age/Sex: 49 / F ADM Date: 06/23/24 Loc: Attending Dr: Dwain LOPEZ Ordering Physician: Dwain Foley Date of Service: 06/23/24 Procedure(s): XR abdomen 1V Accession Number(s): [id number] cc: GILLES MAURICIO ; Dwain Foley [address] [address] Patient Name: IRENE LPOEZ MRN: [facility]:[id number] date: 1975 Sex: F Assigned Patient Location: Current Patient Location: US Accession/Order Number: [id number] Exam Date: 06/23/2024 09:25 Report Date: 06/23/2024 09:26 At the request of: DWAIN LOPEZ Procedure: XR abdomen 1V Single view of abdomen COMPARISON: None HISTORY: History of kidney stones. Post lithotripsy THORAX: Lung bases unremarkable. FREE AIR: Supine position limits assessment BOWEL: No gaseous intestinal distention. STOOL: Moderate stool. RENAL STONES: Faint left renal calculi measuring up to 5 mm. No ureteral stone. No bladder stone. VASCULAR CALCIFICATIONS: Unremarkable SOFT TISSUE: Unremarkable BONES: Unremarkable POSTSURGICAL CHANGES: None XR/XR abdomen 1V IMPRESSION: Left nephrolithiasis. Impression dictated by: Mitchel Sweet M.D.06/23/2024 9:26 AM Dictation Location: [place] [address] Electronically authenticated by: [id number] Y Date: 06/23/2024 09:26 Dictated By: Mitchel Sweet D.O. Signed By: 06/23/2429 DD/ 5 TD/TT: Chick Grader: [facility] Radiology, Radiologist, MD - 06/23/[address] [address] XRay Report Signed Patient: IRENE LOPEZ MR#: [id number] : 1975 Acct:[id number] Age/Sex: 49 / F ADM Date: 06/23/24 Loc: US Attending Dr: Dwain LOPEZ Ordering Physician: Dwain Foley Date of Service: 06/23/24 Procedure(s): XR abdomen 1V Accession Number(s): [id number] cc: GILLES MAURICIO ; Dwain Foley [address] [address] Patient Name: IRENE LOPEZ MRN: [id number] date: 1975 Sex: F Assigned Patient Location: US Current Patient Location: US Accession/Order Number: [id number] Exam Date: 06/23/2024 09:25 Report Date: 06/23/2024 09:26 At the request of: DWAIN LOPEZ Procedure: XR abdomen 1V Single view of abdomen COMPARISON: None HISTORY: History of kidney stones. Post lithotripsy THORAX: Lung bases unremarkable. FREE AIR: Supine position limits assessment BOWEL: No gaseous intestinal distention. STOOL: Moderate stool. RENAL STONES: Faint left renal calculi measuring up to 5 mm. No ureteral stone. No bladder stone. VASCULAR CALCIFICATIONS: Unremarkable SOFT TISSUE: Unremarkable BONES: Unremarkable POSTSURGICAL CHANGES: None XR/XR abdomen 1V IMPRESSION: Left nephrolithiasis. Impression dictated by: Mitchel Sweet M.D.06/23/2024 9:26 AM Dictation Location: [place] [address] Electronically authenticated by: [id number] Y Date: 06/23/2024 09:26 Dictated By: Mitchel Sweet D.O. Signed By: 06/23/24928 DD/ 5 TD/TT: Chick Grader: [facility] Radiology Study observation (narrative) [facility] XR ABDOMEN 1VOrdered By: Rad iologist Radiology on 06-23-2024 [facility] [employer] Work Phone: XR ABDOMEN 1Von 05-27-2024 The [place] [id number] XRay Report Signed Patient: IRENE LOPEZ MR#: [id number] : 1975 Acct:[id number] Age/Sex: 49 / F ADM Date: 05/27/24 Loc: SURGOUT Attending Dr: Mandy Tejeda M.D. Ordering Physician: Mandy Tejeda M.D. Date of Service: 05/27/24 Procedure(s): XR abdomen 1V Accession Number(s): [id number] cc: GILLES MAURICIO ; Mandy Tejeda M.D. The [address] [address] Patient Name: IRENE LOPEZ MRN: [facility]:[id number] date: 1975 Sex: F Assigned Patient Location: [facility] Current Patient Location: Accession/Order Number: [id number] Exam Date: 05/27/2024 15:26 Report Date: 05/27/2024 15:27 At the request of: MANDY TEJEDA MD Procedure: XR abdomen 1V KUB: CLINICAL INFORMATION: Kidney stone COMPARISON: KUB 12/08/2020 FINDINGS: 3 mm stone right kidney. Left kidney appears unremarkable. No bowel obstruction or free air. Phleboliths are seen within the pelvis. XR/XR abdomen 1V IMPRESSION: 3 MM STONE RIGHT KIDNEY. Impression dictated by: Julio Andujar Jr.OJuliana05/27/2024 3:27 PM Dictation Location: [place] [address] Electronically authenticated by: [id number] Y Date: 05/27/2024 15:27 Dictated By: Drew Khalil M.D. Signed By: 05/27/24 1529 DD/ 1527 TD/TT: Chick Grader: [facility] Radiology, Radiologist, - 05/27/2024 The [place] [id number] XRay Report Signed Patient: IRENE LOPEZ MR#: [id number] : 1975 Acct:[id number] Age/Sex: 49 / F ADM Date: 05/27/24 Loc: SURGOUT Attending Dr: Mandy Tejeda M.D. Ordering Physician: Mandy Tejeda M.D. Date of Service: 05/27/24 Procedure(s): XR abdomen 1V Accession Number(s): [id number] cc: GILLES MAURICIO ; Mandy Tejeda M.D. [place] [address] Patient Name: IRENE LOPEZ MRN: [id number]:[id number] date: 1975 Sex: F Assigned Patient Location: [facility] Current Patient Location: Accession/Order Number: [id number] Exam Date: 05/27/2024 15:26 Report Date: 05/27/2024 15:27 At the request of: MANDY TEJEDA MD Procedure: XR abdomen 1V KUB: CLINICAL INFORMATION: Kidney stone COMPARISON: KUB 12/08/2020 FINDINGS: 3 mm stone right kidney. Left kidney appears unremarkable. No bowel obstruction or free air. Phleboliths are seen within the pelvis. XR/XR abdomen 1V IMPRESSION: 3 MM STONE RIGHT KIDNEY. Impression dictated by: Drew Khalil Jr., D.O.05/27/2024 3:27 PM Dictation Location: [place] [address] Electronically authenticated by: [id number] Y Date: 05/27/2024 15:27 Dictated By: Drew Khalil M.D. Signed By: 05/27/24 1529 DD/ 1527 TD/TT: Chick Grader: [facility] Radiology Study observation (narrative) [facility] XR ABDOMEN 1VOrdered By: Leonard iologkeith Radiology on 05-27-2024 [facility] [employer] Work Phone: CT Abdomen/Pelvis w/o Contra ston 05-21-2024 CT Abdomen/Pelvis w/o Contrast Exam Date/Time: 05/20/2024 14:02 EDT Reason for Exam: possible ureteral stone, kidney stone;Other (please specify) Report IMPRESSION: 5 MM RIGHT LOWER POLE RENAL CALCULUS. MILD BILATERAL HYDRONEPHROSIS, GREATER ON RIGHT. NO URETERAL CALCULI OR URETERAL DILATATION. CT OF THE ABDOMEN AND PELVIS WITHOUT INTRAVENOUS CONTRAST MEDIUM. HISTORY: POSSIBLE URETERAL STONE, KIDNEY STONE. ASYMPTOMATIC TECHNICAL FACTORS: CT imaging of the abdomen and pelvis were obtained and formatted as 5 mm contiguous axial images from the domes of the diaphragm to the symphysis pubis. Sagittal and coronal reconstructions were also obtained. Oral contrast medium: None. Intravenous contrast medium: None. Comparison: None Findings: Lower chest: Cardiac size normal. No pericardial effusion. No coronary artery calcification. Lung bases clear. Liver: Normal in size, shape, and attenuation. Bile Ducts: Normal in caliber. Gallbladder: No stones or wall thickening. Pancreas: Normal without masses, cysts, ductal dilatation or calcification. Spleen: Normal in size without masses or calcifications. No splenules. Kidneys: Normal in size. 5 mm calculus lower pole right kidney. No left renal calculi. Mild right pelvocaliectasis with left lower pole caliectasis. No masses visualized. Adrenals: Normal. Small bowel: Normal in caliber. Appendix: Normal. Colon: Normal in caliber. Report Peritoneum: No ascites, free air, or fluid collections. Vessels: Aorta normal in course and caliber. Lymph nodes: Retroperitoneal: No enlarged retroperitoneal lymph nodes. Mesenteric: No enlarged mesenteric lymph nodes. Pelvic: No enlarged pelvic lymph nodes. Ureters: Normal in course and caliber. No calcifications. Bladder: No wall thickening. Reproductive organs: No pelvic masses. Abdominal Wall: 1.2 cm fat-containing periumbilical anterior abdominal wall defect No diastasis of rectus musculature. No edema or masses. Bones: No bone lesions. No degenerative changes. No post operative changes. All CT scans at this facility use dose modulation, iterative reconstruction, and/or weight based dosing when appropriate to reduce radiation dose to as low as reasonably achievable. Technical Comments: Rectal Contrast Given? No Ordering Provider: Mandy Tejeda FINAL REPORT Dictated: 05/21/2024 12:53 pm Shan Mojica MD Signed (Electronic Signature): 05/21/2024 12:53 pm Signed by: Shan Mojica MD Transcribed by: TOO Technologist: MAHESH [facility] Urology Office/Clinic Noteon 05-20-2024 Urology Office/Clinic Note Urology Office/Clinic Note Chief Complaint re refer for kidney stone HPI Staff 49 yr old female here due o 5mm kidney stone. Dx: Ureteral stone, flank pain, Kidney stone pt denies any urinary issues. pt dis have UTI back in April and was treated. pt also states she did have X-ray done through [facility] in April and that is where they found stone right kidney History of Present Illness Tests reviewed: UA, external records including [facility] and notes I have reviewed the previous health record information and history for this patient from Dr. Castellano and external providers I have reviewed and verified the staff [...] See HPI. Physical Exam Vitals & Measurements T: 37 ???C(Oral) HR: 82(Peripheral) BP: 140/90 HT: 68 in HT: 173 cm WT: 227.517 lb WT: 103.2 kg BMI: 34.48 General Appearance: alert, no distress, well nourished, well developed female. Assessment/Plan [address] Castellano pt re-referred by Dr Gilles Mauricio d/t nephrolithiasis. Diabetic, controlled, recent A1C 5.8. On Trulicity. No longer on Ozempic. No BTs. No hx of CVA or KS. BBS 8. 1. Kidney stone (N20.0: Calculus of kidney) CT AP wo con 10/02/23 [facility] - The largest stone is in the RUP calyx 4 mm. No hydro. Distal L ureteral stone 2-3 mm. KUB 10/14/23 [facility] - Small R sided renal stone, ~3 mm. No ureteral stones noted. Personal review: L ureteral stone not appreciable. [place] 10[place]18/23 [facility] [place] resolution of distal L ureteral stone. 4 mm stone RSP. No hydro. KUB 04/30/24 [facility] - 5 mm RUP stone. No other stones. UA neg. Hasn't noticed any stone passage. Reviewed imaging with pt. Discussed options including cont to monitor vs surgical intervention options including ESWL since visible on x-ray (less invasive, lower stone free rate) and ureteroscopy/laser litho with possible stent placement (more invasive, higher stone free rate). Risks and benefits of each discussed. Voices she never drinks water. Educated pt on dietary modifications and fluid intake for stone prevention. Not on any meds that contribute to stone formation. Pt elects ESWL. -High fluid intake (1/4 cup lemon/[place] daily) -Diet mods (more fruits/veg, limit animal protein and salt) - Will schedule R ESWL. The procedure risks, benefits, details and treatment alternatives have been discussed with the patient. These include blood in the urine, infection, bleeding around the kidney, kidney bruising, inability to break up the stone, need for blood transfusion, blockage from stone fragments, and need for additional procedures, among others. Full informed consent has been obtained. Will order General anesthesia. -Hold Trulicity preop for 1 week 2. Ureteral stone (N20.1: Calculus of ureter) See #1. Pt never saw stone pass. UA neg and asx so likely passed but would need CT to confirm. High risk of stricture and complications given length of having ureteral stone present. -Schedule CT AP wo con at [facility]. If ureteral stones were present we will add cystoscopy, left retrograde pyelogram with ureteroscopy laser lithotripsy, possible stent placement at the time of ESWL as above. The procedural risks, benefits, details, and [...] has been obtained. Will order General anesthesia. 3. History of kidney stones (Z87.442: Personal history of urinary calculi) Has stone episodes every few years. Has never passed stones in the past on her own. [1] + fam hx in mother, aunt, niece. Discussed metabolic workup including 24 hour urine and blood work for stone prevention. -Consider met workup after #1 resolved Follow-up With When Contact Information Nikhil FAGAN, Mandy Leonardo, URL, URO Additional Instructions: sched CT and R ESWL Patient Education ESWL for Kidney Stones, Care After ESWL for Kidney Stones I, Geno Chu, personally scribed for Dr. Tejeda on 05/20/2024 12:41:46. . Documentation recorded by the scribe, Geno Chu, accurately reflects the services(s) I performed and decisions made by me. Authenticated by Dr. Tejeda on 05/20/2024 12:44:13. Problem List/Past (more content not included)... Normal [facility] Comment on above: Result Comment: Elec tronically Signed By: Mandy Tejeda MD\.br\Date and Time Signed: 05/20/24 12:44 EDT\.br\Electronically Co-Signed By: Geno Chu\.br\Date and Time Co-Signed: 05/20/24 12:42 EDT CBC W Auto Differential pane l (Bld)on 05-01-2024 Basophils (Bld) [#/Vol] 55 10*3/uL [facility] Basophils/100 WBC (Bld) 0.4 % [facility] Eosinophils (Bld) [#/Vol] 178 10*3/uL [facility] Eosinophils/100 WBC (Bld) 1.3 % [facility] Erythrocyte distribution width (RBC) [Ratio] 13 % 11.0 - 15.0 % [facility] Hematocrit (Bld) [Volume fraction] 41.2 % 35.0 - 45.0 % [facility] Hemoglobin (Bld) [Mass/Vol] 13.7 g/dL 11.7 - 15.5 g/dL [facility] Lymphocytes (Bld) [#/Vol] 4658 10*3/uL High [facility] Lymphocytes/100 WBC (Bld) 34 % [facility] MCH (RBC) [Entitic mass] 30.4 pg 27.0 - 33.0 pg [facility] MCHC (RBC) [Mass/Vol] 33.3 g/dL 32.0 - 36.0 g/dL [facility] Comment on above: For adults, a slight decrease in the calculated MCHC value (in the range of 30 to 32 g/dL) is most likely not clinically significant; however, it should be interpreted with caution in correlation with other red cell parameters and the patient's clinical condition. MCV (RBC) [Entitic vol] 91.6 fL 80.0 - 100.0 fL [facility] Monocytes (Bld) [#/Vol] 1041 10*3/uL High [facility] Monocytes/100 WBC (Bld) 7.6 % [facility] Neutrophils (Bld) [#/Vol] 7768 10*3/uL [facility] Neutrophils/100 WBC (Bld) 56.7 % [facility] Platelet mean volume (Bld) [Entitic vol] 10.9 fL 7.5 - 12.5 fL [facility] Platelets (Bld) [#/Vol] 348 10*3/uL [facility] RBC (Bld) [#/Vol] 4.5 10*6/uL [facility] WBC (Bld) [#/Vol] 13.7 10*3/uL High [facility] Laboratory - Chemistry and C hemistry - challengeon 05-01-2024 Albumin [Mass/Vol] 4.4 g/dL 3.6 - 5.1 g/dL [facility] Albumin/Globulin [Mass ratio] 1.5 {ratio} [facility] ALP [Catalytic activity/Vol] 91 U/L 31 - 125 U/L [facility] ALT [Catalytic activity/Vol] 23 U/L 6 - 29 U/L [facility] AST [Catalytic activity/Vol] 15 U/L 10 - 35 U/L [facility] Bilirubin [Mass/Vol] 0.3 mg/dL 0.2 - 1 .2 mg/dL [facility] Calcium [Mass/Vol] 9.6 mg/dL 8.6 - 10. 2 mg/dL [facility] Chloride [Moles/Vol] 103 mmol/L 98 - 11 0 mmol/L [facility] CO2 [Moles/Vol] 27 mmol/L 20 - 32 mmol/L [facility] Creatinine [Mass/Vol] 0.66 mg/dL 0.50 - 0.99 mg/dL [facility] Follitropin Qn 6.4 m[IU]/mL mIU/mL [facility] Comment on above: Reference Range Follicular Phase 2.5-10.2 Mid-cycle Peak 3.1-17.7 Luteal Phase 1.5- 9.1 Postmenopausal 23.0-116.3 GFR/1.73 sq M.predicted among non-blacks MDRD (S/P/Bld) [Vol rate/Area] 109 mL/min/{1.73_m2} > OR = 60 mL/min/1.73m 2 [facility] Globulin (S) [Mass/Vol] 3 g/dL [facility] Glucose [Mass/Vol] 94 mg/dL 65 - 99 mg/dL [facility] Comment on above: Fasting reference interval Potassium [Moles/Vol] 4.4 mmol/L 3.5 - 5.3 mmol/L [facility] Protein [Mass/Vol] 7.4 g/dL 6.1 - 8.1 g/dL [facility] Sodium [Moles/Vol] 140 mmol/L 135 - 146 mmol/L [facility] TSH Qn 2.08 m[IU]/L mIU/L [facility] Comment on above: Reference Range > or = 20 Years 0.40-4.50 Ranges First trimester 0.26-2.66 Second trimester 0.55-2.73 Third trimester 0.43-2.91 Urea nitrogen [Mass/Vol] 15 mg/dL 7 - 25 mg/dL [facility] Urea nitrogen/Creatinine [Mass ratio] SEE NOTE: [facility] Comment on above: Not Reported: BUN an d Creatinine are within reference range. Laboratory - Miscellaneous t estson 05-01-2024 Service comment (Unsp spec) [Interp] [facility] Comment on above: This urine was manjit zed for the presence of WBC, RBC, bacteria, casts, and other formed elements. Only those elements seen were reported. Lipid 1996 panelon 5 Cholesterol [Mass/Vol] 144 mg/dL NINF - 200 mg/dL [facility] Cholesterol in HDL [Mass/Vol] 45 mg/dL Low > OR = 50 [facility] Cholesterol in LDL [Mass/Vol] 66 mg/dL mg/dL (calc) [facility] Comment on above: Reference range: <10 0 Desirable range <100 mg/dL for primary prevention; <70 mg/dL for patients with CHD or diabetic patients with > or = 2 CHD risk factors. LDL-C is now calculated using the Abner calculation, which is a validated novel method providing better accuracy than the Friedewald equation in the estimation of LDL-C. Foreign CERDA et al. MARKELL. 2013;310(19): 8500-4252 (http://education.[employer]/faq/PQA972) Cholesterol non HDL [Mass/Vol] 99 mg/dL [facility] Comment on above: For patients with di abetes plus 1 major ASCVD risk factor, treating to a non-HDL-C goal of <100 mg/dL (LDL-C of <70 mg/dL) is considered a therapeutic option. Cholesterol.total/Ch olesterol in HDL [Mass ratio] 3.2 {ratio} [facility] Triglyceride [Mass/Vol] 283 mg/dL High [facility] - 150 mg/dL [facility] Comment on above: If a non-fasting specimen was collected, consider repeat triglyceride testing on a fasting specimen if clinically indicated. Chano et al. J. of Clin. Lipidol. 2015;9:129-169. No Panel Informationon 05-01 Interpretation and review of laboratory results Abnormal [facility] PATIENT UNABLE TO VOID; ADVISED TO RETURN FOR COLLECTION. [facility] Publicate [facility] Information Site ID: QPT Name: [facility] Address: [address] [place] [phone] Director: Hector Holman MD [facility] [employer] SPLIT 04/30/2024 FROM [id number] [facility] Information Site ID: QPT Name: [facility] Address: [address] [place] [phone] Director: Hector Holman MD [facility] [employer] Urinalysis complete panel (U )on 05-01-2024 Appearance (U) CLEAR CLEAR [facility] Bacteria LM.HPF (Urine sed) [#/Area] FEW Abnormal NONE SEEN /HPF [facility] Bilirubin Ql (U) Negative NEGATIVE [facility] Color (U) YELLOW YELLOW [facility] [employer] Epithelial cells.squamous LM.HPF (Urine sed) [#/Area] 10-20 Abnormal < OR = 5 /HPF [facility] Glucose Ql (U) Negative NEGATIVE [facility] Hemoglobin Ql (U) Negative NEGATIVE [facility] Hyaline casts (Urine sed) [#/Area] NONE SEEN NONE SEEN /LPF [facility] Interpretation and review of laboratory results Abnormal [facility] Ketones Ql (U) Negative NEGATIVE [facility] Leukocyte esterase Test strip Ql (U) TRACE Abnormal NEGATIVE [facility] Nitrite Ql (U) Negative NEGATIVE [facility] [facility] pH (U) 7 [pH] 5.0 - 8.0 [facility] Protein Ql (U) Negative NEGATIVE [facility] RBC LM.HPF (Urine sed) [#/Area] NONE SEEN < OR = 2 /HPF [facility] Specific gravity (U) [Rel density] 1.023 1.001 - 1.035 [facility] WBC LM.HPF (Urine sed) [#/Area] 6-10 Abnormal < OR = 5 /HPF [facility] HbA1c (Bld) [Mass fraction]o n 04-30-2024 Interpretation and review of laboratory results Normal [facility] - Hematology and Cell countson 04-30-2024 HbA1c (Bld) [Mass fraction] 5.9 % [facility] XR ABDOMEN 1 VIEWon 04-30-19 25 [...] (COVID-19) RNA SANIYA+probe Ql (Unsp spec) Negative [facility] No Panel Informationon 04-14 FLU A Negative [facility] FLU B Negative [facility] Interpretation and review of laboratory results [facility] CBC AND AUTO DIFFon 11-29-19 24 ABSOLUTE BASOPHIL 0.0 X10E9/L Normal 0.0-0.2 [facility] Comment on above: Performed By: #### C BCA #### [facility] ([id number]) [address], [address] [place] [address] ABSOLUTE NEUTROPHIL 6.6 X10E9/L Normal 1.5-6.6 [facility] Comment on above: Performed By: #### C BCA #### [facility] ([id number]) [address], [address] [place] [address] Basophils/100 WBC (Bld) 0.4 % Normal [facility] Comment on above: Performed By: #### C BCA #### [facility] ([id number]) [address], [address] [place] [address] Eosinophils (Bld) [#/Vol] 0.2 10*3/uL Normal 0.0-0.4 [facility] Comment on above: Performed By: #### C BCA #### [facility] ([id number]) [address], [address] [place] [address] Eosinophils/100 WBC (Bld) 1.7 % Normal [facility] Comment on above: Performed By: #### C BCA #### [facility] ([id number]) [address], [address] [place] [address] Erythrocyte distribution width (RBC) [Ratio] 13.6 % Normal 11.5-15.0 [facility] Comment on above: Performed By: #### C BCA #### [facility] ([id number]) [address], [address] [place] [address] Hematocrit (Bld) [Volume fraction] 39.0 % Normal 35-47 [facility] Comment on above: Performed By: #### C BCA #### [facility] ([id number]) [address], [address] [place] [address] Hemoglobin (Bld) [Mass/Vol] 13.2 g/dL Normal 11.7-15.5 [facility] Comment on above: Performed By: #### C BCA #### [facility] ([id number]) [address], [address] [place] [address] Lymphocytes (Bld) [#/Vol] 4.0 10*3/uL High 1.0-3.5 [facility] Comment on above: Performed By: #### C BCA #### [facility] ([id number]) [address], [address] [place] [address] Lymphocytes/100 WBC (Bld) 34.1 % Normal [facility] Comment on above: Performed By: #### C BCA #### [facility] ([id number]) [address], [address] [place] [address] MCH (RBC) [Entitic mass] 31.1 pg Normal 27-34 [facility] Comment on above: Performed By: #### C BCA #### [facility] ([id number]) [address], [address] [place] [address] MCHC (RBC) [Mass/Vol] 33.9 g/dL Normal 32-36 [facility] Comment on above: Performed By: #### C BCA #### [facility] ([id number]) [address], [address] [place] [address] MCV (RBC) [Entitic vol] 92 fL Normal 80-100 [facility] Comment on above: Performed By: #### C BCA #### [facility] ([id number]) [address], [address] [place] [address] Monocytes (Bld) [#/Vol] 0.9 10*3/uL Normal 0-0.9 [facility] Comment on above: Performed By: #### C BCA #### [facility] ([id number]) [address], [address] [place] [address] Monocytes/100 WBC (Bld) 8.0 % Normal [facility] Comment on above: Performed By: #### C BCA #### [facility] ([id number]) [address], [facility] [address] [place] [address] Neutrophils/100 WBC (Bld) 55.8 % Normal [facility] Comment on above: Performed By: #### C BCA #### [facility] ([id number]) [address], [facility] [address] [place] [address] Platelet mean volume (Bld) [Entitic vol] 9.4 fL Normal 7-12 [facility] Comment on above: Performed By: #### C BCA #### [facility] ([id number]) [address] [address] [place] [address] Platelets (Bld) [#/Vol] 312 10*3/uL Normal 150-450 [facility] Comment on above: Performed By: #### C BCA #### [facility] ([id number]) [address], [facility] [address] [place] [address] RBC COUNT 4.25 X10E12/L Normal 3.80-5.20 [facility] Comment on above: Performed By: #### C BCA #### [facility] ([id number]) [address], [facility] [address] [place] [address] WBC (Bld) [#/Vol] 11.8 10*3/uL High 4.0-11.0 [facility] Comment on above: Performed By: #### C BCA #### [facility] ([id number]) [address] [address] [place] [address] CBC W Auto Differential pane l (Bld)on 11-29-2023 ABSOLUTE BASOPHIL 0.0 [facility] Comment on above: PERFORMED AT [facility] [address],[place] [address] Basophils/100 WBC (Bld) 0.4 % [facility] Eosinophils (Bld) [#/Vol] 0.2 10*3/uL [facility] Eosinophils/100 WBC (Bld) 1.7 % [facility] Erythrocyte distribution width (RBC) [Ratio] 13.6 % 11.5 - 15.0 % [facility] Hematocrit (Bld) [Volume fraction] 39.0 % 35 - 47 % [facility] Hemoglobin (Bld) [Mass/Vol] 13.2 g/dL 11.7 - 15.5 g/dL [facility] Interpretation and review of laboratory results Abnormal [facility] Lymphocytes (Bld) [#/Vol] 4.0 10*3/uL High [facility] Lymphocytes/100 WBC (Bld) 34.1 % [facility] MCH (RBC) [Entitic mass] 31.1 pg 27 - 34 pg [facility] MCHC (RBC) [Mass/Vol] 33.9 g/dL 32 - 36 g/dL [facility] MCV (RBC) [Entitic vol] 92 fL 80 - 100 fL [facility] Monocytes (Bld) [#/Vol] 0.9 10*3/uL [facility] Monocytes/100 WBC (Bld) 8.0 % [facility] Neutrophils (Bld) [#/Vol] 6.6 10*3/uL [facility] Neutrophils/100 WBC (Bld) 55.8 % [facility] Platelet mean volume (Bld) [Entitic vol] 9.4 fL 7 - 12 [facility]L [facility] (Bld) [#/Vol] 312 10*3/uL [facility] RBC (Bld) [#/Vol] 4.25 10*6/uL [facility] WBC corrected for nucl RBC Auto (Bld) [#/Vol] 11.8 High [facility] XR IVPon 10-18-2023 XR IVP [facility] [place] [address] XRay Report Signed Patient: Irene Loepz MR#: [id number] : 1975 Acct:[id number] Age/Sex: 48 / F ADM Date: 10/18/23 Loc: XD Room: Type: [facility] CLI Attending Dr: Reji Castellano MD Copies to: [...] Boogie Rubio M.D.10/18/2023 1:52 PM Dictation Location: [place] [address] Transcribed By: [facility] 10/18/23 1352 Dictated By: Boogie Rubio II, MD 10/18/23 1349 Signed By: 10/18/23 1352 Normal [facility] Ambulatory Visit Summaryon 0 10-15-2023 [...] with NONA FAGAN, TAMARA Garcia When: Where: [address] [place] [address]- Medications What How Much When Instructions Unchanged [...] including vitamins, herbs, eye drops, creams, and vhan-gzx-mmpgndo medicines. ? Any problems you or family [...] through the (more content not included)... Normal [facility] XR ABDOMEN 1 VIEWon 10-14-19 24 XR [...] Available CT ABDOMEN PELVIS WO IV CONT Izzy 10-02-2023 CT ABDOMEN PELVIS WO IV CONTRAST [...] Hoang D.O. 2023-10-02 10:42:36 Normal Not Available Fredis 09-26-2023 L Specimen: [id number] Received: 09/26/23 Status: [facility] Num: [id number] Spec Type: Surgical Subm Dr: Gregorio Maldonado DO Tissues: A Colon Biopsy (TRANSV POLYP) Procedures: HE/2, Gross/Micro L4 Age/ Patient Sex Location Account Attending Physician Irene Lopez 48/F [place] [id number] Gregorio Maldonado DO SPEC NUM: [id number] RECD: 09/26/23 STATUS: RANDEE GOMEZ NUM: [id number] ZULMA: 09/26/23 [facility] DR: Gregorio Maldonado DO ENTERED: 09/26/[address] [facility] DR: [facility] SPEC TYPE: Surgical DEPT: S ORDERED: [...] cm, entirely submitted in A1. CPT Codes 57374 Specimen: [id number] Received: 09/26/23 Status: RANDEE Gomez Num: [id number] Spec Type: Surgical Subm Dr: Gregorio Maldonado DO Tissues: A Colon Biopsy (TRANSV POLYP) Procedures: HE/2, Gross/Micro L4 Patient: Irene Lopez [id number] (Continued) Signed (signature on file) George Alas Jr., MD 09/27/23 1730 Normal [facility] MG MAMM SCREEN 3D ANTHONY CADon 09-25-2021 MG MAMM SCREEN 3D ANTHONY CAD Patient: IRENE LOPEZ. Exam Date: 09/25/2021 : 1975 Gender:F Ordering : DR ADILSON ROUSSEAU . Admission #: [id number] Family : Order #: [id number] CLICK HERE TO VIEW EXAM RADIOLOGY REPORT [...] Treatments None Family Cancers None LOCATION: [facility] BREAST COMPOSITION: Scattered areas fibroglandular density. FINDINGS: [...] Barry M.D. on 09/25/2021 at 15:39 Normal [facility] XR knee LT 4V*on 07-18-2021 XR knee LT 4V* [facility] mo9 ([employer]) Other XR knee LT 4V* [facility] mo9 ([employer]) Other XR knee LT 4V* [address] [place] [address] mo9 ([employer]) Other XR knee LT 4V* [place] [address] No rt mo9 ([employer]) Other XR knee LT 4V* XRay Report [facility] Other XR knee LT 4V* Signed [facility] Other XR knee LT 4V* Patient: Irene Lopez MR#: [facility] Other XR knee LT 4V* [id number] [facility] Other XR knee LT 4V* : 1975 Acct:[id number] [facility] Other XR knee LT 4V* Age/Sex: 46 / F ADM Date: 07/18/21 [facility] Other XR knee LT 4V* Loc: XDUCLY Room: Type: REG CLI [facility] Other XR knee LT 4V* Attending Dr: Denisse GRIJALVA [facility] Other XR knee LT 4V* Ordering Provider: VALENTINE Sutherland [facility] Other XR knee LT 4V* Date of Service: 07/18/21 [facility] Other XR knee LT 4V* XR/XR knee LT 4V*: LEFT KNEE PAIN [facility] Other XR knee LT 4V* Copies to: CASPER SutherlandC [facility] Other XR knee LT 4V* Left knee 07/18/2021. [facility] Other XR knee LT 4V* CLINICAL DATA: Left knee pain after injury. [facility] Other XR knee LT 4V* FINDINGS: 4 views of the left knee were obtained. [facility] Other XR knee LT 4V* No acute fracture or dislocation is identified. No other bony abnormality is seen. There is no [facility] Other XR knee LT 4V* suprapatellar effusion. [facility] Other XR knee LT 4V* XR/XR knee LT 4V* [facility] Other XR knee LT 4V* IMPRESSION: No acute bony abnormality or effusion. [facility] Other XR knee LT 4V* Impression dictated by: Benton Tinoco Jr., M.D.07/18/2021 6:01 PM [facility] Other XR knee LT 4V* Dictation Location: [place] [address] [facility] Other XR knee LT 4V* Transcribed By: MARY 07/18/21 180 [facility] Other XR knee LT 4V* Dictated By: Benton Tinoco Jr, MD 07/18/21 1758 [facility] Other XR knee LT 4V* Signed By: [facility] Other XR knee LT 4V* 07/18/21 180 [facility] Other Microalbumin (with Creat)on 03-20-2021 mALB <1.2 Low [facility] [employer] Comment on above: Result Comment: Unab le to calculate mALB/Crea ratio, mALB is <1.2 mg/dL mALB reference range not established. Performed By: #### m ALBC #### [facility] [address] [place], [place] [id number] UCREA 89 mg/dL Normal 28-217 [facility] [employer] Comment on above: Performed By: #### m ALBC #### [facility] [address] [place], [place] [id number] Vital Signs Date Time Vital Sign Value Performing Clinician Facility 07-28-2024 15:40-0400 Body height 172.7 cm Gilles Mauricio MD Work Phone: [facility] 07-28-2024 15:40-0400 Body mass index (BMI) [Ratio] 35.58 kg/m2 Gilles Mauricio MD Work Phone: [facility] 07-28-2024 15:40-0400 Body weight 106.14 kg Gilles Mauricio MD Work Phone: [facility] 07-28-2024 15:40-0400 Diastolic blood pressure 74 mm[Hg] Gilles Mauricio MD Work Phone: [facility] 07-28-2024 15:40-0400 Heart rate 91 /min Gilles Mauricio MD Work Phone: [facility] 07-28-2024 15:40-0400 Respiratory rate 18 /min Gilles Mauricio MD Work Phone: [facility] 07-28-2024 15:40-0400 SaO2% (BldA) [Mass fraction] 100 % Gilles Mauricio MD Work Phone: [facility] 07-28-2024 15:40-0400 Systolic blood pressure 126 mm[Hg] Gilles Mauricio MD Work Phone: [facility] 04-30-2024 15:41-0500 Body mass index (BMI) [Ratio] 35.15 kg/m2 Gilles Mauricio MD Work Phone: [facility] 04-30-2024 15:41-0500 Body temperature 96.4 [degF] Gilles Mauricio MD Work Phone: [facility] 04-30-2024 15:41-0500 Body weight 104.87 kg Gilles Mauricio MD Work Phone: [facility] 04-30-2024 15:41-0500 Diastolic blood pressure 82 mm[Hg] Gilles Mauricio MD Work Phone: [facility] 04-30-2024 15:41-0500 Heart rate 103 /min Gilles Mauricio MD Work Phone: [facility] 04-30-2024 15:41-0500 SaO2% (BldA) [Mass fraction] 97 % Gilles Mauricio MD Work Phone: [facility] 04-30-2024 15:41-0500 Systolic blood pressure 132 mm[Hg] Gilles Mauricio MD Work Phone: [facility] 04-14-2024 09:21-0500 Body mass index (BMI) [Ratio] 34.64 kg/m2 David Christensen PRODUCT PLANNER Work Phone: [facility] 04-14-2024 09:21-0500 Body temperature 98.6 [degF] David Fermin PRODUCT PLANNER Work Phone: [facility] 04-14-2024 09:21-0500 Body weight 103.33 kg David Christensen PRODUCT PLANNER Work Phone: [facility] 04-14-2024 09:21-0500 Diastolic blood pressure 78 mm[Hg] David Mosesburg PRODUCT PLANNER Work Phone: [facility] 04-14-2024 09:21-0500 Heart rate 97 /min David Fermin PRODUCT PLANNER Work Phone: [facility] 04-14-2024 09:21-0500 SaO2% (BldA) [Mass fraction] 97 % David Fermin PRODUCT PLANNER Work Phone: [facility] 04-14-2024 09:21-0500 Systolic blood pressure 122 mm[Hg] David Hackenalisa PRODUCT PLANNER Work Phone: [facility] 12-05-2023 15:28-0400 Body height 172.5 cm Jeniffer Briscoe MD Work Phone: [facility] 12-05-2023 15:28-0400 Body mass index (BMI) [Ratio] 35.06 kg/m2 Jeniffer Briscoe MD Work Phone: [facility] 12-05-2023 15:28-0400 Body temperature 98.29 [degF] Jeniffer Briscoe MD Work Phone: [facility] [employer] [facility] 12-05-2023 15:28-0400 Body weight 104.33 kg Jeniffer Briscoe MD Work Phone: [facility] 12-05-2023 15:28-0400 Diastolic blood pressure 92 mm[Hg] Jeniffer Briscoe MD Work Phone: [facility] [employer] [facility] 12-05-2023 15:28-0400 Heart rate 106 /min Jeniffer Briscoe MD Work Phone: [facility] [employer] [facility] 12-05-2023 15:28-0400 Respiratory rate 16 /min Jeniffer Briscoe MD Work Phone: [facility] [employer] [facility] 12-05-2023 15:28-0400 SaO2% (BldA) [Mass fraction] 100 % Jeniffer Briscoe MD Work Phone: [facility] [employer] [facility] 12-05-2023 15:28-0400 Systolic blood pressure 146 mm[Hg] Jeniffer Briscoe MD Work Phone: [facility] 10-22-2023 15:02-0400 Body mass index (BMI) [Ratio] 33.75 kg/m2 Kerri Manzanares PRODUCT PLANNER Work Phone: [facility] 10-22-2023 15:02-0400 Body weight 100.7 kg Kerri Manzanares PRODUCT PLANNER Work Phone: [facility] 10-22-2023 15:02-0400 Diastolic blood pressure 76 mm[Hg] Kerri Manzanares PRODUCT PLANNER Work Phone: [facility] 10-22-2023 15:02-0400 Heart rate 78 /min Kerri Manzanares PRODUCT PLANNER Work Phone: [facility] 10-22-2023 15:02-0400 Respiratory rate 18 /min Kerri Manzanares PRODUCT PLANNER Work Phone: [facility] 10-22-2023 15:02-0400 SaO2% (BldA) [Mass fraction] 98 % Kerri Manzanares PRODUCT PLANNER Work Phone: [facility] 10-22-2023 15:02-0400 Systolic blood pressure 130 mm[Hg] Kerri Manzanares PRODUCT PLANNER Work Phone: [facility] 10-15-2023 14:15-0400 Blood Pressure Location Reji CASTELLANO [facility] 10-15-2023 14:15-0400 Diastolic blood pressure 98 mm[Hg] Reji CASTELLANO [facility] 10-15-2023 14:15-0400 Heart rate 94 /min Reji CASTELLANO [facility] 10-15-2023 14:15-0400 Respiratory rate 16 /min Reji CASTELLANO [facility] 10-15-2023 14:15-0400 Systolic blood pressure 140 mm[Hg] Reji CASTELLANO [facility] 07-18-2021 18:00-0400 Body height 172.72 cm Denisse Clemente Other [facility] Other 07-18-2021 18:00-0400 Body mass index (BMI) [Ratio] 35.88 kg/m2 Denisse Clemente Other [facility] Other 07-18-2021 18:00-0400 Body temperature 98 [degF] Denisse Clemente Other [facility] Other 07-18-2021 18:00-0400 Body weight 107.05 kg Denisse Clemente Other [facility] Other 07-18-2021 18:00-0400 Respiratory rate 18 /min Denisse Clemente Other [facility] Other 07-18-2021 18:00-0400 SaO2% (BldA) [Mass fraction] 99 % Denisse Clemente Other [facility] Other Encounters Encounter Date Encounter Type Care Provider Facility Start: 09-01-2025 ambulatory Mandy M. Lue Facility:[facility] Start: 09-02-2024 End: 09-02-2024 ambulatory Mandy M. Lue Facility:[facility] Start: 09-02-2024 End: 09-02-2024 Patient encounter procedure Mandy MJuliana Álvarezre [facility] Start: 07-28-2024 End: 07-28-2024 Office outpatient visit 25 minutes Gilles Mauricio MD Work Phone: [facility] Comment on above: Current moderate epi sode of major depressive disorder without prior episode (HCC) (CMS/HCC) (Primary Dx); Controlled type 2 diabetes mellitus with hyperglycemia, without long-term current use of insulin (CMS/HCC); Essential hypertension (CMS/HCC); Hypertriglyceridemia (CMS/HCC); Obesity (BMI 30-39.9); PTSD (post-traumatic stress disorder) (CMS/HCC) Start: 07-28-2024 End: 07-28-2024 ambulatory GILLES MAURICIO Not Available Start: 07-28-2024 End: 07-28-2024 Bamboo flowsheet Gilles Mauricio MD Work Phone: [facility] Start: 07-28-2024 End: 07-28-2024 Bamboo flowsheet Gilles Mauricio MD Work Phone: [facility] Start: 07-07-2024 End: 07-07-2024 ambulatory APPLE BOYD Not Available Start: 07-07-2024 End: 07-07-2024 Bamboo flowsheet Apple Boyd 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 [facility] Start: 07-07-2024 End: 07-07-2024 Bamboo flowsheet Apple Boyd 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 [facility] Start: 06-30-2024 End: 06-30-2024 Lab Drop off Dwain Foley [facility] Start: 06-30-2024 End: 06-30-2024 ambulatory Dwain Foley Facility:[facility] Start: 06-24-2024 End: 06-24-2024 ambulatory APPLE BOYD Not Available Start: 06-24-2024 End: 06-24-2024 Bamboo flowsheet Apple Boyd 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 [facility] Start: 06-24-2024 End: 06-24-2024 Bamboo flowsheet Apple Boyd 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 [facility] Start: 06-23-2024 End: 06-23-2024 Clinisync Result Encounter Generic External Data Provider [facility] Unsolicited Start: 06-23-2024 End: 06-23-2024 Clinisync Result Encounter Generic External Data Provider [facility] External [facility] Unsolicited Start: 06-02-2024 End: 06-02-2024 ambulatory APPLEVIPUL BOYD Not Available Start: 06-02-2024 End: 06-02-2024 Bamboo flowsheet Apple Boyd 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 [facility] Start: 06-02-2024 End: 06-02-2024 Bamboo flowsheet Apple Boyd 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 [facility] Start: 06-02-2024 End: 06-02-2024 Telephone encounter Gilles Mauricio MD Work Phone: [facility] Start: 06-01-2024 End: 06-01-2024 Telephone encounter Gilles Mauricio MD Work Phone: [facility] Start: 05-27-2024 End: 05-27-2024 Clinisync Result Encounter Generic External Data Provider [facility] External [facility] Unsolicited Start: 05-27-2024 End: 05-27-2024 Clinisync Result Encounter Generic External Data Provider [facility] External [facility] Unsolicited Start: 05-27-2024 End: 05-27-2024 ambulatory Mandy Tejeda Facility::[id number] Start: 05-20-2024 End: 05-21-2024 ambulatory Mandy Tejeda Facility:[facility] Start: 05-20-2024 End: 05-21-2024 Patient encounter procedure Mandy Tejeda [facility] Start: 05-20-2024 End: 05-20-2024 ambulatory Mandy Tejeda Facility:[facility] Start: 05-11-2024 End: 05-11-2024 Telephone encounter Gilles [...] depressive disorder without prior episode (HCC) (CMS/HCC) (Primary Dx); Controlled type 2 diabetes mellitus with hyperglycemia, without long-term current use of insulin (CMS/HCC); Anxiety; Essential hypertension (CMS/HCC); Allergic rhinitis due to pollen, unspecified seasonality; Right flank discomfort; Menopause; Hot flashes; Hypertriglyceridemia (CMS/HCC) Start: 04-30-2024 End: 04-30-2024 ambulatory GILLES MAURICIO Not Available Start: 04-30-2024 End: 04-30-2024 Bamboo flowsheet Gilles Mauricio MD Work Phone: [facility] Start: 04-30-2024 End: 04-30-2024 Bamboo flowsheet Gilles Mauricio MD Work Phone: [facility] Start: 04-17-2024 End: 04-17-2024 Orders Only Hilaria Johnson Miya PRODUCT PLANNER Work Phone: [facility] Comment on above: Acute non-recurrent pansinusitis (Primary Dx) Start: 04-14-2024 End: 04-14-2024 Bamboo flowsheet David A Hackenburg PRODUCT PLANNER Work Phone: [facility] Start: 04-14-2024 End: 04-14-2024 Bamboo flowsheet David A Hackenburg PRODUCT PLANNER Work Phone: [facility] Start: 04-14-2024 End: 04-14-2024 Office outpatient visit 15 minutes David A Hackenburg PRODUCT PLANNER Work Phone: [facility] Comment on above: Viral URI (Primary D x); Nasal congestion; Cough, unspecified type; Right ear pain Start: 04-14-2024 End: 04-14-2024 ambulatory DAVID A HACKENBURG Not Available Start: 12-05-2023 End: 12-05-2023 Office outpatient new 30 minutes Jeniffer Briscoe MD Work Phone: [facility] Comment on above: Lymphocytosis (Prima ry Dx) Start: 12-05-2023 ambulatory JENIFFER BRISCOE [facility] Start: 11-29-2023 End: 11-29-2023 ambulatory KERRI MANZANARES [facility] Start: 11-29-2023 End: 11-29-2023 External Result Encounter Kerri Manzanares PRODUCT PLANNER Work Phone: [facility] Unsolicited Start: 11-29-2023 End: 11-29-2023 External Result Encounter Kerri Manzanares PRODUCT PLANNER Work Phone: [facility] Unsolicited Start: 11-12-2023 End: 11-12-2023 Orders Only Kerri Manzanares PRODUCT PLANNER Work Phone: [facility] Comment on above: Yeast infection (Lexis gilles Dx) Start: 10-22-2023 End: 10-22-2023 Patient encounter status Kerri Manzanares PRODUCT PLANNER Work Phone: [facility] Work Phone: Start: 10-22-2023 End: 10-22-2023 Periodic preventive med est patient 40-64yrs Kerri Manzanares PRODUCT PLANNER Work Phone: [facility] Comment on above: Well adult exam (Lexis gilles Dx); Encounter for screening mammogram for malignant neoplasm of breast; Controlled type 2 diabetes mellitus with hyperglycemia, without long-term current use of insulin ([facility]/HCC); H/O hysterectomy for benign disease; Hypertriglyceridemia (CMS/HCC); Obesity (BMI 30-39.9); Essential hypertension (CMS/HCC); Anxiety; Insomnia, unspecified type; Current moderate episode of major depressive disorder without prior episode (HCC) ([facility]/HCC); Encounter for gynecological examination without abnormal finding; EDWARD inhibitor intolerance; Allergic rhinitis due to pollen, unspecified seasonality Start: 10-22-2023 End: 10-22-2023 ambulatory KERRI MANZANARES Not Available Start: 10-22-2023 End: 10-22-2023 Bamboo flowsheet Kerri Manzanares PRODUCT PLANNER Work Phone: [facility] Start: 10-22-2023 End: 10-22-2023 Bamboo flowsheet Kerri Manzanares PRODUCT PLANNER Work Phone: [facility] Start: 10-18-2023 End: 10-18-2023 Patient encounter procedure MD Gilles Mauricio Work Phone: [facility] Work Phone: Start: 10-18-2023 End: 10-18-2023 ambulatory MD Gilles Mauricio Work Phone: [facility] Work Phone: Start: 10-15-2023 End: 10-15-2023 ambulatory Reji CASTELLANO Facility:[facility] Start: 10-15-2023 End: 10-15-2023 Patient encounter procedure Reji Leon CASTELLANO [facility] [place] Start: 10-14-2023 End: 10-14-2023 ambulatory REJI Quintero NONA Not Available Start: 10-03-2023 End: 10-03-2023 ambulatory GREGORIO MALDONADO Not Available Start: 10-02-2023 End: 10-02-2023 ambulatory GILLES MAURICIO Not Available Start: 10-02-2023 End: 10-02-2023 ambulatory GILLES MAURICIO Not Available Start: 09-26-2023 End: 09-26-2023 ambulatory Gregorio Maldonado [facility] Work Phone: Start: 09-26-2023 End: 09-26-2023 Departed Referred DO Gregorio Maldonado Work Phone: [facility] Work Phone: Start: 08-19-2023 End: 08-19-2023 ambulatory KERRI MANZANARES Not Available Start: 08-06-2023 End: 08-06-2023 ambulatory GREGORIO MALDONADO Not Available Start: 09-25-2021 End: 09-26-[address] ADILSON ROUSSEAU Facility: Start: 07-18-2021 End: 07-18-2021 Patient encounter procedure PRODUCT PLANNER-C Denisse Clemente Work Phone: [facility] Start: 07-18-2021 End: 07-18-2021 ambulatory Denisse Clemente Other [facility] Other Start: 07-18-2021 Office outpatient ne w 20 minutes Denisse Clemente [facility] Procedures Date Procedure Procedure Detail Performing Clinician Start: 07-28-2024 Hemoglobin glycosyla travon a1c Gilles Mauricio MD Work Phone: Start: 07-07-2024 End: 07-07-2024 Psychotherapy w/patient 60 minutes PTSD (post-traumatic stress disorder) ([facility]/HCC) Apple Boyd 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 Comment on above: PTSD (post-traumatic stress disorder) ([facility]/HCC) Start: 06-24-2024 End: 06-24-2024 Psychotherapy w/patient 45 minutes PTSD (post-traumatic stress disorder) ([facility]/HCC) Apple Boyd 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 Comment on above: PTSD (post-traumatic stress disorder) ([facility]/HCC) Start: 06-23-2024 XR ABDOMEN 1V Generic E xternal Data Provider Start: 06-23-2024 US RENAL BI Generic Ex ternal Data Provider Start: 06-02-2024 End: 06-02-2024 Psychiatric diagnostic evaluation Current moderate episode of major depressive disorder without prior episode (HCC) ([facility]) Apple Boyd 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 Comment on above: Current moderate epi sode of major depressive disorder without prior episode (HCC) ([facility]/HCC); PTSD (post-traumatic stress disorder) ([facility]/HCC) Start: 05-27-2024 XR ABDOMEN 1V Generic E xternal Data Provider Start: 04-30-2024 NOTE Gilles ramirez MD Work [...] Start: 04-14-2024 STATUS COVID-19/FLU Pat tobi Christensen PRODUCT PLANNER Work Phone: Start: 11-29-2023 Complete blood count with white cell differential, automated Kerri Manzanares PRODUCT PLANNER Work Phone: Start: 08-16-2024 Intravenous pyelogram M D Gilles Mauricio Work Phone: Start: 10-08-2023 Mammography Kerri Manzanares PRODUCT PLANNER Work Phone: Start: 09-27-2023 Colonoscopy Kerri Manzanares PRODUCT PLANNER Work Phone: Start: 07-18-2021 Radiologic examinati on of knee PRODUCT PLANNER-C Denisse Clemente Work Phone: Start: 03-02-2019 Lithotripsy using laser Reji CASTELLANO Comment on above: and stent placement. .. Colonoscopy Reji CASTELLANO Hysterectomy Reji CASTELLANO Plan of Treatment Date Care Activity Detail Author Start: 09-26-2033 Screening for malign ant neoplasm of colon [facility] Start: 07-19-2031 DTaP,Tdap and Td Vaccines (3 - Td or Tdap) DTaP,Tdap and Td Vaccines (3 - Td or Tdap) [facility] Start: 07-19-2031 DTaP,Tdap and Td Vaccines (4 - Td or Tdap) DTaP,Tdap and Td Vaccines (4 - Td or Tdap) [facility] Start: 01-26-2025 End: 01-26-2025 Patient encounter procedure 01/26/2025 4:00 PM EST Office Visit [facility] [address] [place] [address] Gilles Mauricio MD [address] [place] [address] [facility] Start: 12-04-2024 Adult BMI Screening Adult BMI Screen ing [facility] Start: 12-04-2024 Tobacco Screening Tobacco Screening [facility] Start: 11-02-2024 Influenza vaccination Influenz a Vaccine (Season Ended) [facility] Start: 10-28-2024 Hemoglobin A1c measurement Diabetes: Hemoglobin A1C [facility] Start: 10-22-2024 Urine screening for protein Diabetes: Urine Protein Screening [facility] Start: 10-07-2024 Screening for malign ant neoplasm of breast Mammogram [facility] Start: 09-29-2024 End: 09-29-2024 Social Work 09/29/2024 1:00 PM EDT Social Work [facility] [address] [facility] [place] [address] Apple Boyd LSW [facility] Start: 09-15-2024 End: 09-15-2024 Social Work 09/15/2024 1:00 PM EDT Social Work [facility] [address] [place] [facility] [place] [address] Apple Boyd, 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 [facility] Start: 09-06-2024 Glaucoma screening Diabetes: R etinopathy Screening [facility] Start: 09-01-2024 End: 09-01-2024 Social Work 09/01/2024 1:00 PM EDT Social Work [facility] [address] [facility] [place] [address] Apple Boyd, 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 [facility] Start: 08-18-2024 End: 08-18-2024 Social Work 08/18/2024 1:00 PM EDT Social Work [facility] [address] [place] [place] [address] 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, 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 [facility] Start: 08-04-2024 End: 08-04-2024 Social Work 08/04/2024 4:00 PM EDT Social Work [facility] [address] [place] [facility] [address] Apple Boyd, 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 [facility] Start: 07-28-2024 End: 07-28-2024 Patient encounter procedure [facility] Comment on above: Arrived Start: 07-28-2024 End: 07-28-2025 Cortisol Cortisol Lab Routine Controlled type 2 diabetes mellitus with hyperglycemia, without long-term current use of insulin ([facility]) Expected: 07/28/2024 (Approximate), Expires: 07/28/2025 [facility] Work Phone: Comment on above: Expected: 07/28/2024 (Approximate), Expires: 07/28/2025 Start: 07-28-2024 Hemoglobin A1c measurement Diabetes: Hemoglobin A1C [facility] Start: 07-21-2024 End: 07-21-2024 Social Work 07/21/2024 4:00 PM EDT Social Work [facility] [address] [facility] [place] [address] Apple Boyd LSW [facility] Start: 07-07-2024 End: 07-07-2024 Social Work [facility] Comment on above: Arrived Start: 06-27-2024 Urine screening for protein Diabetes: Urine Protein Screening [facility] Start: 06-24-2024 End: 06-24-2024 Social Work [facility] Comment on above: Arrived Start: 06-02-2024 End: 06-02-2024 Social Work 06/02/2024 4:00 PM EDT Social Work [facility] [address] [place] [facility] [place] [address] Apple Boyd LSW Current moderate episode of major depressive disorder without prior episode (HCC) ([facility]/HCC) [facility] Comment on above: Current moderate epi sode of major depressive disorder without prior episode (HCC) ([facility]/HCC) Start: 04-30-2024 End: 04-30-2024 Patient encounter procedure [facility] Comment on above: Arrived Start: 04-30-2024 End: 04-30-2025 Bacteria identified in Urine by Culture Urine culture (clean catch) Microbiology Routine Right flank discomfort Expected: 04/30/2024 (Approximate), Expires: 04/30/2025 [facility] Work Phone: Comment on above: Expected: 04/30/2024 (Approximate), Expires: 04/30/2025 Start: 04-23-2024 End: 04-23-2024 Patient encounter procedure 04/23/2024 4:00 PM EST Office Visit [facility] [address] [place] [id number] Kerri Manzanares NP [address] [facility], [place] [id number] [facility] Start: 04-14-2024 End: 04-14-2024 Patient encounter procedure 04/14/2024 9:30 AM EST Office Visit [facility] [address] [place] [address] David Christensen NP [address] [place] [address] Arrived [facility] Comment on above: Arrived Start: 01-22-2024 Hemoglobin A1c measurement Diabetes: Hemoglobin A1C [facility] Start: 01-02-2024 Hemoglobin A1c measurement Diabetes: Hemoglobin A1C [facility] Start: 11-03-2023 COVID-19 Vaccine ( season) COVID-19 Vaccine () [facility] Start: 11-03-2023 COVID-19 Vaccine () COVID-19 Vaccine () [facility] Start: 11-03-2023 Influenza vaccination N [facility] Start: 10-22-2023 End: 10-22-2023 Patient encounter procedure 10/22/2023 3:00 PM EDT Office Visit [facility] [address] [place] [address] Kerri Manzanares NP [address] [place], [place] [id number] Arrived [facility] Comment on above: Arrived Start: 10-22-2023 End: 10-21-2024 CBC W Auto Differential panel - Blood CBC and differential Lab Routine Well adult exam Controlled type 2 diabetes mellitus with hyperglycemia, without long-term current use of insulin (CMS/HCC) Essential hypertension (CMS/HCC) Expected: 10/22/2023 (Approximate), Expires: 10/21/2024 [facility] Work Phone: Comment on above: Expected: 10/22/2023 (Approximate), Expires: 10/21/2024 Start: 10-22-2023 End: 10-21-2024 Comprehensive metabolic 2000 panel - Serum or Plasma Comprehensive metabolic panel Lab Routine Well adult exam Controlled type 2 diabetes mellitus with hyperglycemia, without long-term current use of insulin (CMS/HCC) Essential hypertension (CMS/HCC) Expected: 10/22/2023 (Approximate), Expires: 10/21/2024 [facility] Comment on above: Expected: 10/22/2023 (Approximate), Expires: 10/21/2024 Start: 10-22-2023 End: 10-21-2024 Hemoglobin A1c/Hemoglobin.total in Blood Hemoglobin A1c Lab Routine Controlled type 2 diabetes mellitus with hyperglycemia, without long-term current use of insulin ([facility]) Expected: 10/22/2023 (Approximate), Expires: 10/21/2024 [facility] Comment on above: Expected: 10/22/2023 (Approximate), Expires: 10/21/2024 Start: 10-22-2023 End: 10-21-2024 Lipid 1996 panel - Serum or Plasma Lipid panel Lab Routine Well adult exam Controlled type 2 diabetes mellitus with hyperglycemia, without long-term current use of insulin ([facility]) Essential hypertension ([facility]) Expected: 10/22/2023 (Approximate), Expires: 10/21/2024 [facility] Comment on above: Expected: 10/22/2023 (Approximate), Expires: 10/21/2024 Start: 10-22-2023 End: 10-21-2024 Microalbumin/Creatinine panel in random Urine Microalbumin / creatinine urine ratio Lab Routine Controlled type 2 diabetes mellitus with hyperglycemia, without long-term current use of insulin ([facility]) Expected: 10/22/2023 (Approximate), Expires: 10/21/2024 [facility] Comment on above: Expected: 10/22/2023 (Approximate), Expires: 10/21/2024 Start: 10-22-2023 End: 10-21-2024 THINPREP TIS PAP AND HPV MRNA E6/E7 WITH REFLEX TO HPV 16,18/45 THINPREP TIS PAP AND HPV MRNA E6/E7 WITH REFLEX TO HPV 16,18/45 Pathology and Cytology Routine Encounter for gynecological examination without abnormal finding Expected: 10/22/2023 (Approximate), Expires: 10/21/2024 [facility] Comment on above: Expected: 10/22/2023 (Approximate), Expires: 10/21/2024 Start: 10-22-2023 End: 10-21-2024 Thyrotropin [Units/volume] in Serum or Plasma TSH Lab Routine Controlled type 2 diabetes mellitus with hyperglycemia, without long-term current use of insulin ([facility]/HCC) Essential hypertension (CMS/HCC) Anxiety Expected: 10/22/2023 (Approximate), Expires: 10/21/2024 [facility] Comment on above: Expected: 10/22/2023 (Approximate), Expires: 10/21/2024 Start: 12-23-2022 Adult BMI Screening Adult BMI Screen ing [facility] Start: 12-23-2022 Tobacco Screening Tobacco Screening [facility] Start: 1995 Adult BMI Follow Up Plan Adult BMI Follow Up Plan [facility] Start: 1989 Depression Screening Depression Scre ening [facility] Start: 1977 Screening for malign ant neoplasm of colon [facility] Immunizations Immunization Date Immunization Notes Care Provider Marion vega 12-13-2021 SARS-CoV-2 (COVID-19 ) [id number] Reji CASTELLANO [facility] 07-18-2021 tetanus toxoid, reduced diphtheria toxoid, and acellular pertussis vaccine, adsorbed Denisse Clemente Other [facility] 12-18-2020 SARS-CoV-2 (COVID-19 ) mRNA BNT-162b2 vax Reji NONA [facility] 05-19-2020 SARS-CoV-2 (COVID-19 ) mRNA BNT-162b2 elpidiox Reji CASTELLANO [facility] 04-28-2020 SARS-CoV-2 (COVID-19 ) mRNA BNT-162b2 elpidiox Reji CASTELLANO [facility] 12-26-2007 tetanus toxoid, reduced diphtheria toxoid, and acellular pertussis vaccine, adsorbed Reji CASTELLANO [facility] 03-04-2005 tetanus toxoid, reduced diphtheria toxoid, and acellular pertussis vaccine, adsorbed David Christensen NP Work Phone: [facility] NEGATED: Highlighted row has not occurred!02-27-2019 influenza virus vaccine, live, attenuated, for intranasal use Reji CASTELLANO [facility] Payers Date Payer Category Payer Commercial Managed C are - PPO [employer] [id number] 2023 Self-pay [id number] 2023 Private Health Insurance [id number]. [id number] 2023 Unknown [id number]. 1.13.693.2. [id number] 2023 Unknown [id number] 2023 Managed Care Other (unspecified) [employer] [id number]. [id number] 1977 Unknown [id number] 2.16.840.1.536792.3.579.2. 593 1977 Unknown [id number] 2.16.840.1.105962.3.579.2. 1286 1977 Unknown [id number] 2.16.840.1.371087.3.579.2. 727 1977 Unknown [id number] 2.16.840.1.766521.3.579.2. 727 1977 Unknown [id number] 2.16.840.1.938005.3.579.2. 727 1977 Unknown [id number] 2.16.840.1.448402.3.579.2. 727 1977 Unknown [id number] 2.16.840.1.566770.3.579.2. 727 1977 Unknown [id number] 2.16.840.1.290353.3.579.2. 727 1977 Unknown [id number] 2.16.840.1.109492.3.579.2. 1259 1977 Unknown [id number] 2.16.840.1.385269.3.579.2. 1259 1977 Unknown [id number] 2.16.840.1.121580.3.579.2. 1259 1977 Unknown [id number] 2.16.840.1.547549.3.579.2. 1259 1977 Unknown [id number] 2.16.840.1.848728.3.579.2. 1259 1977 Unknown [id number] 2.16.840.1.106179.3.579.2. 1259 1977 Unknown [id number] 2.16.840.1.810988.3.579.2. 1259 1977 Unknown [id number] 2.16.840.1.136820.3.579.2. 1259 1977 Unknown [id number] 2.16.840.1.918108.3.579.2. 1259 1977 Unknown [id number] 2.16.840.1.201859.3.579.2. 9 1977 Unknown [id number] 2.16.840.1.883997.3.579.2. 1259 1977 Unknown [id number] 2.16.840.1.057482.3.579.2. 9 1977 Unknown [id number] 2.16.840.1.476317.3.579.2. 9 1977 Unknown [id number] 2.16.840.1.215494.3.579.2. 9 1977 Unknown [id number] 2.16.840.1.347450.3.579.2. 727 1977 Unknown [id number] 2.16.840.1.334171.3.579.2. 727 1959 [facility] [employer] [id number] 2.16.840.1.671154.19 Unknown [place] BC/BS [id number] Unknown [id number] 2.16840.1.784895.3.579.2. 531 Unknown [id number] 2.16.840.1.078310.3.579.2. 531 Social History Date Type Detail Facility Tobacco smoking stat [facility] Unknown if ever smoked [facility] Work Phone: Start: 1975 Sex Assigned At Female F [facility] Start: 12-17-2022 End: 04-25-2024 [facility] Start: 01-19-2018 End: 09-02-2024 Tobacco smoking status NHIS Never smoked tobacco (finding) [facility] Tobacco smoking status Never [facility] Start: 12-23-2021 End: 07-23-2022 Tobacco use and exposure Smokeless tobacco non-user [facility] Start: 10-22-2023 End: 07-28-2024 Alcoholic beverage intake Current drinker of alcohol [...] a month [facility] How many standard dr inks containing alcohol do you have on a [...] To some extent [facility] (I/We) worried wheth er (my/our) food would run out before (I/we) got money to buy more. Never true [facility] Start: 06-17-2023 End: 04-14-2024 Alcohol Comment Once a month if that [facility] Start: 1975 Sex assigned at Not on file [facility] How often to you hav e a drink containing alcohol? Monthly or less [facility] Start: 12-05-2023 Alcoholic beverage intake Ex-drinker (finding) [facility] Sexual Orientation [facility] Start: 10-07-2014 End: 10-17-2015 Sex Female (finding) [facility] Medical Equipment Procedure Code Equipment Code Equipment Origin al Text Equipment Identifier Dates [id number] Start: 10-23-2023 End: 10-22-2024 1 Application in the morning and 1 Application before bedtime. [id number] Start: 10-23-2023 Goals Date Patient Goal Desired Activity /State Personal health goal Functional Status Date Assessment Result Facility 07-28-2024 Patient Health [facility] ionnaire 2 item (PHQ-2) [Reported] [facility] 10-15-2023 Functional Status N/A [facility] Clinical Notes 05-02-2014 to 09-02-2024 Gilles Mauricio MD - 07/28/2024 4:00 PM EDTTelephone Encounter - Michael Villa - 06/02/2024 3:57 PM EDTTelephone Encounter - Michael Villa - 06/02/2024 3:57 PM EDKwabena Mauricio MD - 04/30/2024 4:00 PM EST Note Date & Type Note Facility 09-02-2024 Hospital Discharg e instructions Patient Education 09/02/2024 10:09:19 Dietary Guidelines to Help Prevent Kidney Stones Dietary Guidelines to Help Prevent Kidney Stones Kidney stones are deposits of minerals and salts that form inside your kidneys. Your risk of developing kidney stones may be greater depending on your diet, your lifestyle, the medicines you take, and whether you have certain medical conditions. Most people can lower their risks of developing kidney stones by following these dietary guidelines. Your dietitian may give you more specific instructions depending on your overall health and the type of kidney stones you tend to develop. What are tips for following this plan? Reading food labels Choose foods with no salt added or low-salt labels. Limit your salt (sodium) intake to less than 1,500 mg a day. Choose foods with calcium for each meal and snack. Try to eat about 300 mg of calcium at each meal. Foods that contain 200 500 mg of calcium a serving include: ?8 oz (237 mL) of milk, isdckfr-zvpwmvomllvq-eljlh milk, and calcium-fortifiedfruit juice. Calcium-fortified means that calcium has been added to these drinks. ?8 oz (237 mL) of kefir, yogurt, and soy yogurt. ?4 oz (114 g) of tofu. ?1 oz (28 g) of cheese. ?1 cup (150 g) of dried figs. ?1 cup (91 g) of cooked broccoli. ?One 3 oz (85 g) can of sardines or mackerel. Most people need 1,000 1,500 mg of calcium a day. Talk to your dietitian about how much calcium is recommended for you. Shopping Buy plenty of fresh fruits and vegetables. Most people do not need to avoid fruits and vegetables, even if these foods contain nutrients that may contribute to kidney stones. When shopping for convenience foods, choose: ?Whole pieces of fruit. ?Pre-made salads with dressing on the side. ?Low-fat fruit and yogurt smoothies. Avoid buying frozen meals or prepared deli foods. These can be high in sodium. Look for foods with live cultures, such as yogurt and kefir. Choose high-fiber grains, such as whole-wheat breads, oat bran, and wheat cereals. Cooking Do not add salt to food when cooking. Place a salt shaker on the table and allow each person to add their own salt to taste. Use vegetable protein, such as beans, textured vegetable protein (TVP), or tofu, instead of meat in pasta, casseroles, and soups. Meal planning Eat less salt, if told by your dietitian. To do this: ?Avoid eating processed or pre-made food. ?Avoid eating fast food. Eat less animal protein, including cheese, meat, poultry, or fish, if told by your dietitian. To do this: ?Limit the number of times you have meat, poultry, fish, or cheese each week. Eat a diet free of meat at least 2 days a week. ?Eat only one serving each day of meat, poultry, fish, or seafood. ?When you prepare animal proteins, cut pieces into small portion sizes. For most meat and fish, one serving is about the size of the palm of your hand. Eat at least five servings of fresh fruits and vegetables each day. To do this: ?Keep fruits and vegetables on hand for snacks. ?Eat one piece of fruit or a handful of berries with breakfast. ?Have a salad and fruit at lunch. ?Have two kinds of vegetables at dinner. You may be told to limit foods that are high in a substance called oxalate. These include: ?Spinach (cooked), rhubarb, beets, sweet potatoes, and [place] chard. ?Peanuts. ?Potato chips, puerto rican fries, and baked potatoes with skin on. ?Nuts and nut products. ?Chocolate. If you regularly take a diuretic medicine, make sure to eat at least 1 or 2 servings of fruits or vegetables that are high in potassium each day. These include: ?Avocado. ?Banana. ?[place], prune, carrot, or tomato juice. ?Baked potato. ?Cabbage. ?Beans and split peas. Lifestyle Drink enough fluid to keep your urine pale yellow. This is the most important thing you can do. Spread your fluid intake throughout the day. If you drink alcohol: ?Limit how much you have to: ?0 1 drink a day for women who are not . ?0 2 drinks a day for men. ?Know how much alcohol is in your drink. In the [place] one drink equals one 12 oz bottle of beer (355 mL), one 5 oz glass of wine (148 mL), or one 1 oz glass of hard liquor (44 mL). Lose weight if told by your health care provider. Work with your dietitian to find an eating plan and weight loss strategies that work best for you. General information Talk to your health care provider and dietitian about taking daily supplements. Depending on your health and the cause of your kidney stones, you may be told: ?Do not take high-dose supplements of vitamin C (1,000 mg a day or more). ?To take a calcium supplement. ?To take a daily probiotic supplement. ?To take other supplements such as magnesium, fish oil, or vitamin B6. Take zywh-taf-blzzklr and prescription medicines only as told by your health care provider. These include supplements. What foods should I limit? Limit your intake of the following foods, or eat them as told by your dietitian. Vegetables Spinach. Rhubarb. Beets. Canned vegetables. Pickles. Olives. Baked potatoes with skin. Grains Wheat bran. Baked goods. Salted crackers. Cereals high in sugar. Meats and other proteins Nuts. Nut butters. Large portions of meat, poultry, or fish. Salted, precooked, or cured meats, such as sausages, meat loaves, and hot dogs. Dairy Cheeses. Beverages Regular soft drinks. Regular vegetable juice. Seasonings and condiments Seasoning blends with salt. Salad dressings. Soy sauce. Ketchup. Barbecue sauce. Other foods Canned soups. Canned pasta sauce. Casseroles. Pizza. Lasagna. Frozen meals. Potato chips. Portuguese fries. The items listed above may not be a complete list of foods and beverages you should limit. Contact a dietitian for more information. What foods should I avoid? Talk to your dietitian about specific foods you should avoid based on the type of kidney stones you have and your overall health. Fruits Grapefruit. The item listed above may not be a complete list of foods and beverages you should avoid. Contact a dietitian for more information. Summary Kidney stones are deposits of minerals and salts that form inside your kidneys. You can lower your risk of kidney stones by making changes to your diet. The most important thing you can do is drink enough fluid. Drink enough fluid to keep your urine pale yellow. Talk to your dietitian about how much calcium you should have each day, and eat less salt and animal protein as told by your dietitian. This information is not intended to replace advice given to you by your health care provider. Make sure you discuss any questions you have with your health care provider. Document Revised: 05/31/2022 Document Reviewed: 05/31/2022 [employer] Patient Education 2023 Bottle. Follow Up Care 08/31/2024 13:28:36 With:Nikhil FAGAN, TAMARA Kamara, URO Address: When: Unknown [facility] 09-02-2024 Note Patient Education Nephrology Dietary Guidelines to Help Prevent Kidney Stones Kidney stones are deposits of minerals and salts that form inside your kidneys. Your risk of developing kidney stones may be greater depending on your diet, your lifestyle, the medicines you take, and whether you have certain medical conditions. Most people can lower their risks of developing kidney stones by following these dietary guidelines. Your dietitian may give you more specific instructions depending on your overall health and the type of kidney stones you tend to develop. What are tips for following this plan? Reading food labels ??? Choose foods with no salt added or low-salt labels. Limit your salt (sodium) intake to less than 1,500 mg a day. ??? Choose foods with calcium for each meal and snack. Try to eat about 300 mg of calcium at each meal. Foods that contain 200?500 mg of calcium a serving include: ? 8 oz (237 mL) of milk, bakcfua-xixrdrlixpuo-efgvw milk, and calcium-fortifiedfruit juice. Calcium-fortified means that calcium has been added to these drinks. ? 8 oz (237 mL) of kefir, yogurt, and soy yogurt. ? 4 oz (114 g) of tofu. ? 1 oz (28 g) of cheese. ? 1 cup (150 g) of dried figs. ? 1 cup (91 g) of cooked broccoli. ? One 3 oz (85 g) can of sardines or mackerel. Most people need 1,000?1,500 mg of calcium a day. Talk to your dietitian about how much calcium is recommended for you. Shopping ??? Buy plenty of fresh fruits and vegetables. Most people do not need to avoid fruits and vegetables, even if these foods contain nutrients that may contribute to kidney stones. ??? When shopping for convenience foods, choose: ? Whole pieces of fruit. ? Pre-made salads with dressing on the side. ? Low-fat fruit and yogurt smoothies. ??? Avoid buying frozen meals or prepared deli foods. These can be high in sodium. ??? Look for foods with live cultures, such as yogurt and kefir. ??? Choose high-fiber grains, such as whole-wheat breads, oat bran, and wheat cereals. Cooking ??? Do not add salt to food when cooking. Place a salt shaker on the table and allow each person to add their own salt to taste. ??? Use vegetable protein, such as beans, textured vegetable protein (TVP), or tofu, instead of meat in pasta, casseroles, and soups. Meal planning ??? Eat less salt, if told by your dietitian. To do this: ? Avoid eating processed or pre-made food. ? Avoid eating fast food. ??? Eat less animal protein, including cheese, meat, poultry, or fish, if told by your dietitian. To do this: ? Limit the number of times you have meat, poultry, fish, or cheese each week. Eat a diet free of meat at least 2 days a week. ? Eat only one serving each day of meat, poultry, fish, or seafood. ? When you prepare animal proteins, cut pieces into small portion sizes. For most meat and fish, one serving is about the size of the palm of your hand. ??? Eat at least five servings of fresh fruits and vegetables each day. To do this: ? Keep fruits and vegetables on hand for snacks. ? Eat one piece of fruit or a handful of berries with breakfast. ? Have a salad and fruit at lunch. ? Have two kinds of vegetables at dinner. ??? You may be told to limit foods that are high in a substance called oxalate. These include: ? Spinach (cooked), rhubarb, beets, sweet potatoes, and [place] chard. ? Peanuts. ? Potato chips, pu[place] r[place] fries, and baked potatoes with skin on. ? Nuts and nut products. ? Chocolate. ??? If you regularly take a diuretic medicine, make sure to eat at least 1 or 2 servings of fruits or vegetables that are high in potassium each day. These include: ? Avocado. ? Banana. ? [place], prune, carrot, or tomato juice. ? Baked potato. ? Cabbage. ? Beans and split peas. Lifestyle ??? Drink enough fluid to keep your urine pale yellow. This is the most important thing you can do. Spread your fluid intake throughout the day. ??? If you drink alcohol: ? Limit how much you have to: ? 0?1 drink a day for women who are not . ? 0?2 drinks a day for men. ? Know how much alcohol is in your drink. In the [place] one drink equals one 12 oz bottle of beer (355 mL), one 5 oz glass of wine (148 mL), or one 1? oz glass of hard liquor (44 mL). ??? Lose weight if told by your health care provider. Work with your dietitian to find an eating plan and weight loss strategies that work best for you. General information ??? Talk to your health care provider and dietitian about taking daily supplements. Depending on your health and the cause of your kidney stones, you may be told: ? Do not take high-dose supplements of vitamin C (1,000 mg a day or more). ? To take a calcium supplement. ? To take a daily probiotic supplement. ? To take other supplements such as magnesium, fish oil, or vitamin B6. ??? Take pizv-qdr-ucgtray and prescription medicines only as told by your health (more content not included)... [facility] 07-28-2024 History of Presen t illness Narrative Images from the original note were not included. Irene Lopez is a 49 y.o. female presents with chief complaint of Diabetes HPI: HPI History of Present Illness Reports significant stress. Would like her cortisol levels checked Constant fatigue Sugar cravings SUBJECTIVE: MEDICATIONS: Current Outpatient Medications Medication Instructions atorvastatin (LIPITOR) 10 mg, Oral, Daily cloNIDine (CATAPRES) 0.1 mg, Oral, Nightly fluticasone (Flonase) 50 MCG/ACT nasal spray 1 [...] (LOPRESSOR) 25 mg, Oral, 2 times daily QUEtiapine (SEROQUEL) 25 mg, Oral, Nightly Trulicity 0.75 mg, Subcutaneous, Weekly venlafaxine XR (EFFEXOR XR) 150 mg, Oral, Daily ALLERGIES: Allergies Allergen Reactions Levonorgestrel-Ethinyl Estrad Seasonal Ic [Octacosanol] SURGICAL HISTORY: Past Surgical History: Procedure Laterality Date CYSTOSCOPY Left 2018 with lithotripsy for renal stone HYSTERECTOMY 10/2014 PARTIAL HYSTERECTOMY 05/2014 FAMILY HISTORY: Family History Problem Relation Name Age of Onset Hypertension Mother [place] Heart disease Mother [place] Heart failure Paternal Grandfather Hypertension Paternal Grandfather SOCIAL HISTORY: Social History Tobacco Use Smoking status: Never Smokeless tobacco: Never Substance Use Topics Alcohol use: Yes Alcohol/week: 1.0 standard drink of alcohol Types: 1 Standard drinks or equivalent per week Comment: Once a month if that Drug use: Never Depression: Not at risk (07/28/2024) PHQ-2 PHQ-2 Score: 0 REVIEW OF SYMPTOMS: Review of Systems Respiratory: Negative. Cardiovascular: Negative. OBJECTIVE: Visit Vitals BP 126/74 (BP Location: Right arm, Patient Position: Sitting, BP Cuff Size: Large adult) Pulse 91 Resp 18 Ht 5' 8 Wt 234 lb SpO2 100% BMI 35.58 kg/m Smoking Status Never BSA 2.26 m Physical Exam Constitutional: Appearance: Normal appearance. [...] Content: Thought content normal. Judgment: Judgment normal. Lab Results Component Value Date HGBA1C 6.2 07/28/2024 ASSESSMENT AND PLAN: Assessment/Plan Problem List Items Addressed This Visit Controlled type 2 diabetes mellitus with hyperglycemia, without long-term current use of insulin (CMS/[facility]) Relevant Orders POCT glycosylated hemoglobin (Hb A1C) docked device (Completed) Current moderate episode of major depressive disorder without prior episode (HCC) (CMS/HCC) - Primary On effexor Essential hypertension (CMS/HCC) Good control Hypertriglyceridemia (CMS/HCC) On statin Obesity (BMI 30-39.9) PTSD (post-traumatic stress disorder) (CMS/HCC) Encouraged to contiwth counseling Pt requests checking her cortisol level Assessment & Plan documented in this encounter [facility] 06-30-2024 Note Patient Education Urology Kidney Stones Kidney stones are rock-like masses that form inside of the kidneys. Kidneys are organs that make pee (urine). A kidney stone may move into other parts of the urinary tract, including: ??? The tubes that connect the kidneys to the bladder (ureters). ??? The bladder. ??? The tube that carries urine out of the body (urethra). Kidney stones can cause very bad pain and can block the flow of pee. The stone usually leaves your body through your pee. A doctor may need to take out the stone. What are the causes? Kidney stones may be caused by: ??? Too much calcium in the body. This may be caused by too much parathyroid hormone in the blood. ??? Uric acid crystals in the bladder. The body makes uric acid when you eat certain foods. ??? Narrowing of one or both of the ureters. ??? A kidney blockage that you were born with. ??? Past surgery on the kidney or the ureters. What increases the risk? You are more likely to develop this condition if: ??? You have had a kidney stone in the past. ??? Other people in your family have had kidney stones. ??? You do not drink enough water. ??? You eat a diet that is high in protein, salt (sodium), or sugar. ??? You are very overweight (obese). What are the signs or symptoms? Symptoms of a kidney stone may include: ??? Pain in the side of the belly, right below the ribs. Pain usually spreads to the groin. ??? Needing to pee often or right away. ??? Pain when peeing. ??? Blood in your pee. ??? Feeling like you may vomit (nauseous). ??? Vomiting. ??? Fever and chills. How is this treated? Treatment depends on the size, location, and makeup of the kidney stones. The stones will often pass out of the body when you pee. You may need to: ??? Drink more fluid to help pass the stone. ? In some cases, you may be given fluids through an IV tube at the hospital. ??? Take medicine for pain. ??? Change your diet to help keep kidney stones from coming back. Sometimes, you may need: ??? A procedure to break up kidney stones using a beam of light (laser) or shock waves. ??? Surgery to remove the kidney stones. Follow these instructions at home: Medicines ??? Take qosu-geg-mnpurap and prescription medicines only as told by your doctor. ??? Ask your doctor if the medicine prescribed to you requires you to avoid driving or using machinery. Eating and drinking ??? Drink enough fluid to keep your pee pale yellow. ? You may be told to drink at least 8?10 glasses of water each day. This will help you pass the stone. ??? If told by your doctor, change your diet. You may be told to: ? Limit how much salt you eat. ? Eat more fruits and vegetables. ? Limit how much meat, poultry, fish, and eggs you eat. ??? Follow instructions from your doctor about what you may eat and drink. General instructions ??? Collect pee samples as told by your doctor. You may need to collect a pee sample: ? 24 hours after a stone comes out. ? 8?12 weeks after a stone comes out, and every 6?12 months after that. ??? Strain your pee every time you pee. Use the strainer that your doctor recommends. ??? Do not throw out the stone. Keep it so that it can be tested by your doctor. ??? Keep all follow-up visits. You may need X-rays and ultrasounds to make sure the stone has come out. How is this prevented? To prevent another kidney stone: ??? Drink enough fluid to keep your pee pale yellow. This is the best way to prevent kidney stones. ??? Eat healthy foods. ??? Avoid certain foods as told by your doctor. You may be told to eat less protein. ??? Stay at a healthy weight. Where to find more information ??? National Kidney Foundation (NKF): kidney.org ??? [facility] (UCF): urologyhealth.org Contact a doctor if: ??? You have pain that gets worse or does not get better with medicine. Get help right away if: ??? You have a fever or chills. ??? You get very bad pain. ??? You get new pain in your belly. ??? You faint. ??? You cannot pee. This information is not intended to replace advice given to you by your health care provider. Make sure you discuss any questions you have with your health care provider. Document Revised: 10/12/2022 Document Reviewed: 10/12/2022 [employer] Patient Education ? 2023 Bottle. [facility] 06-30-2024 Note Reminders From: Rea Harmon (EU - Administrative) To: EU - Web Retailer; Sent: 06/30/2024 15:21:31 EDT Show up: 01/02/2025 15:21:00 EDT Subject: Ambulatory Reminder Due Date/Time: 06/30/2025 15:21:00 EDT Reminder/Recall From: Rea Harmon To: - Administrative; Sent: 06/30/2024 15:20:10 EDT Subject: 1 yr f/u Due Date/Time: 06/30/2025 15:18:00 EDT Caller Name: IRENE LOPEZ; Caller Number: Oral , Pooja Patient needs a 1 yr f/u w/ [facility] with Dwain due around 06/30/25. [facility] 06-30-2024 Evaluation + Plan note Diagnostic Tests PendingCalculi Analysis Urinary 06/30/24 [facility] 06-02-2024 Miscellaneous Notes I was seeing since you do all the referrals and getting stuff in for appts for BH-and putting her info.. Can you figure out why there is an issue w her Insurance ? TY documented in this encounter [facility] 06-02-2024 Telephone encounter Note I was seeing since you do all the referrals and getting stuff in for appts for BH-and putting her info.. Can you figure out why there is an issue w her Insurance ? TY [facility] 06-01-2024 Miscellaneous Notes CALLED X1 LVM TO SCHEDULE REFERRAL documented in this encounter [facility] 06-01-2024 Telephone encounter Note CALLED X1 LVM TO SCHEDULE REFERRAL [facility] 05-20-2024 Note Patient Education Nephrology ESWL for Kidney Stones, Care After The following information offers guidance on how to care for yourself after your procedure. Your health care provider may also give you more specific instructions. If you have problems or questions, contact your health care provider. What can I expect after the procedure? After the procedure, it is common to have: ??? Some blood in your urine. This should only last for a few days. ??? Soreness in your back, sides, or upper abdomen for a few days. ??? Blotches or bruises on the area where the shock wave entered the skin. ??? Pain, discomfort, or nausea when pieces (fragments) of the kidney stone move through the tube that carries urine from the kidney to the bladder (ureter). Fragments may pass soon after the procedure. They may also take up to 4?8 weeks to pass. ? If you have severe pain or nausea, contact your health care provider. This may be caused by a large stone that was not broken up enough. This may mean that you need more treatment. ??? Some pain or discomfort during urination. ??? Some pain or discomfort in the lower abdomen or at the base of the penis. Follow these instructions at home: Medicines ??? Take axsd-kiz-ocnxxvt and prescription medicines only as told by your health care provider. ??? If you were prescribed antibiotics, take them as told by your health care provider. Do not stop using the antibiotic even if you start to feel better. ??? Ask your health care provider if the medicine prescribed to you: ? Requires you to avoid driving or using machinery. ? Can cause constipation. You may need to take these actions to prevent or treat constipation: ? Take chea-ujw-ozgzxck or prescription medicines. ? Eat foods that are high in fiber, such as beans, whole grains, and fresh fruits and vegetables. ? Limit foods that are high in fat and processed sugars, such as fried or sweet foods. Eating and drinking ??? Follow instructions from your health care provider about what you may eat and drink. You may be told to: ? Reduce how much salt (sodium) you eat or drink. Check ingredients and nutrition facts on packaged foods and drinks to see how much sodium they contain. ? Reduce how much meat you eat. ??? Drink enough fluid to keep your urine pale yellow. This can help you pass any pieces of the stone that are left. It can also prevent new stones from forming. ??? Eat plenty of fresh fruits and vegetables. ??? Eat the recommended amount of calcium for your age and gender. Ask your health care provider how much calcium you should have. Activity ??? Get plenty of rest as told by your health care provider. ??? Avoid sitting for a long time without moving. Get up to take short walks every 1?2 hours. This is important to improve blood flow and breathing. Ask for help if you feel weak or unsteady. ??? Your health care provider may tell you to lie in a certain position (postural drainage) and tap firmly (percuss) over your kidney area to help stone fragments pass. Follow instructions as told by your health care provider. ??? Return to your normal activities as told by your health care provider. Ask your health care provider what activities are safe for you. Most people can resume normal activities 1?2 days after the procedure. General instructions ??? If told, strain all urine through the strainer that was provided by your health care provider. ? Keep all fragments for your health care provider to see. Any stones that are found may be sent to a medical lab for examination. The stone may be as small as a grain of salt. ??? Keep all follow-up visits. This is important if you had a stent placed because it may need to stay in place for a few weeks. Ask your health care provider when the stent will be removed. Contact a health care provider if: ??? You have a fever or chills. ??? You have severe nausea that leads to persistent vomiting. ??? You have any of these urinary symptoms: ? Increased blood or blood clots in the urine. ? Urine that smells bad or unusual. ? A strong urge to urinate after emptying your bladder. ? Pain or burning with urination that does not go away. ? A continued need to urinate more often than usual. ??? You have a stent, and it comes out. Get help right away if: ??? You have severe pain in your back, sides, or upper abdomen. ??? You faint. ??? You have any of these urinary symptoms: ? Severe pain while urinating. ? More blood in your urine, or blood in your urine when you did not have any before. ? Blood clots in your urine larger than 1 inch (2.5 cm) in size. ? You pass only a small amount of urine when you urinate or are unable to pass any urine. This information is not intended to replace advice given to you by your health care provider. Make sure you discuss any questions you have with your health care provider. Document Revised: (more content not included)... [facility] 05-11-2024 Telephone encounter Note Irene called - referral to urologist is scheduling a month out.. she is asking if there is somewhere else she can be referred to that she would be able to get in sooner ? Irene [phone] [facility] 05-11-2024 Miscellaneous Notes Irene called - referral to urologist is scheduling a month out.. she is asking if there is somewhere else she can be referred to that she would be able to get in sooner ? Irene [phone] documented in this encounter [facility] 04-30-2024 History of Presen t illness [...] counseling. 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, but they have since [...] hyperglycemia, without long-term current use of insulin ([facility]) Relevant Medications Dulaglutide (Trulicity) 0.75 MG/0.5ML solution auto-injector Other Relevant Orders POCT glycosylated hemoglobin (Hb A1C) docked device (Completed) Current moderate episode of major depressive disorder without prior episode (HCC) (CMS/[facility]) - Primary Relevant Orders Ambulatory referral to Psychology TSH W/REFLEX TO FT4 (Completed) Essential hypertension (CMS/[facility]) Relevant Medications metoprolol tartrate (Lopressor) 25 MG tablet Other Relevant Orders Comprehensive metabolic panel (Completed) CBC and differential (Completed) Lipid panel (Completed) Hypertriglyceridemia (CMS/HCC) Other Visit Diagnoses Right flank discomfort Relevant [...] prescription for Trulicity will be sent to [facility], pending insurance approval. She is advised to [...] hysterectomy in 2014. documented in this encounter [facility] 04-17-2024 History of Presen t illness Narrative Prescription sent documented in this encounter [facility] 04-14-2024 History of Presen t illness [...] has attempted to manage her symptoms with pmgl-crn-xqbiyej medications, including Flonase and loratadine, but these [...] I was little Anxiety Cataract 10/2022 Depression (CMS/HCC) Diabetes mellitus (CMS/HCC) DUB (dysfunctional uterine bleeding) Hypertension (CMS/HCC) Kidney stone Plantar fasciitis Seasonal allergies Varicella [...] follow-ups on file. documented in this encounter [facility] 12-05-2023 History of Presen t illness Narrative Images from the original note were not included. [facility] 12/05/23 Irene Lopez is a 48 y.o. [...] Resource Strain: Low Risk (12/17/2022) Received from [facility] Overall Financial Resource Strain (CARDIA) Difficulty of Paying Living Expenses: Not very hard Food Insecurity: No Food Insecurity (12/05/2023) Hunger Screening Food Insecurity - Worry: Never True Food Insecurity - Inability: Never True Transportation Needs: No Transportation Needs (12/17/2022) Received from [facility] PRAPARE - Transportation Lack of Transportation (Medical): No Lack of Transportation (Non-Medical): No Physical Activity: Insufficiently Active (12/17/2022) Received from [facility] Exercise Vital Sign Days of Exercise per Week: 1 day Minutes of Exercise per Session: 10 min Stress: Stress Concern Present (12/17/2022) Received from [facility] [place] [place] [employer] - Occupational Stress Questionnaire Feeling of Stress : To some extent Social Connections: Moderately Isolated (12/17/2022) Received from [facility] Social Connection and Isolation Panel [NHANES] Frequency of Communication with Friends and Family: Once a week Frequency of Social Gatherings with Friends and Family: Once a week Attends Buddhism Services: 1 to 4 times per year Active Member of Clubs or Organizations: No Attends Club or Organization Meetings: Never Marital Status: Interpersonal Safety: Not At Risk (12/17/2022) Received from [facility] Humiliation, Afraid, Rape, and Kick questionnaire Fear of Current or Ex-Partner: No Emotionally Abused: No Physically Abused: No Sexually Abused: No Housing Instability: Low Risk (12/17/2022) Received from [facility] Housing Stability Vital Sign Unable to [...] Dose: 25 mg Commonly known as: LOPRESSOR bioznrst-hpiv-PW-calcium &mins 9 mg iron-400 mcg tablet Refills: [...] this note were generated using voice recognition M*Vidient dictation software. Although every effort was made to ensure the accuracy of this automated slip cover estimator, some errors in slip cover estimator may have occurred. CC: Patient Care Team: Gilles Mauricio MD as PCP - General (Family Medicine) Jeniffer Briscoe MD as Consulting Physician (Hematology) CHANDLER Russell as Referring Physician (Nurse Practitioner) PCP:Gilles Mauricio Referring MD: Gilles Mauricio MD documented in this encounter [facility] 10-22-2023 History of Presen t illness Narrative [...] Are you taking aspirin daily? no Last - 2019 SUBJECTIVE: MEDICATIONS: ALLERGIES Current Outpatient Medications [...] I was little Anxiety Cataract 10/2022 Depression ([facility]) Diabetes mellitus ([facility]) DUB (dysfunctional uterine bleeding) Hypertension ([facility]) Kidney stone Plantar fasciitis Seasonal [...] major depressive disorder without prior episode (HCC) ([facility]/HCC) stable Encounter for gynecological examination without abnormal finding - THINPREP TIS PAP AND HPV MRNA E6/E7 WITH REFLEX TO HPV 16,18/45; Future EDWARD inhibitor intolerance Allergic rhinitis due to pollen, unspecified seasonality - loratadine (Allergy) 10 MG tablet; Take 1 tablet (10 mg) by mouth Daily stable No follow-ups on file. documented in this encounter [facility] 10-15-2023 Hospital Discharg e instructions Patient [...] including vitamins, herbs, eye drops, creams, and erke-xtv-ohuuyfe medicines. Any problems you or family members [...] The feeling will not last long. A optical coating technician will take X-rays. To make the [...] out the dye in your body. Take nozp-ayz-imtklen and prescription medicines only as told by [...] you are taking. During the procedure, a optical coating technician will insert an IV into one [...] provider. Document Revised: 11/01/2021 Document Reviewed: 03/25/2019 [employer] Patient Education 2022 Bottle. 10/15/2023 14:35:24 Laser Therapy for Kidney Stones [...] including vitamins, herbs, eye drops, creams, and fbtr-kvc-puavpda medicines. Any problems you or family members [...] provider tells you to take them. ?Taking yzuj-tar-zgimifa medicines, vitamins, herbs, and supplements. Eating and [...] provider. Document Revised: 06/27/2022 Document Reviewed: 10/23/2021 [employer] Patient Education 2022 Bottle. Follow Up Care 10/10/2023 13:16:43 With:NONA FAGAN, Reji Quintero, URL Address: [address] [place], [place] [id number]- When: Unknown [facility] 10-15-2023 Note Urology Office/Clini c Note Chief [...] denies Abdominal pain: yes left sided pain /, has taken Vicodin but didn't help Flank pain: yes left sided pain / Sexual complaints: denies History of Present Illness [...] visible, can add to surgery schedule at [facility] tomorrow. -Pt go to the ER if [...] medical expulsive ther (more content not included)... [facility] Comment on above: Result Comment: Elec tronically [...] including vitamins, herbs, eye drops, creams, and mpjw-fls-pnznchy medicines. ? Any problems you or family [...] tells you to take them. ? Taking tbuk-bnb-ubxexfb medicines, vitamins, herbs, and supplements. Eating and [...] into your kidney (more content not included)... [facility] 07-18-2021 Evaluation note Encounter Date Diagnosis Assessment [...] S80.212A) July, Other Contusion material was printed [facility] Other 03-01-2015 History general Narrative - Reported* Type Description Date Medical History Hypertension Medical History Anxiety associated with depressi on Medical History Insomnia Medical History Potassium deficiency Medical History DM Surgical History hysterectomy May 2014 Hospitalization History see above surgical histo ry [facility] Other Evaluation + Plan note No data available for this section [facility] Evaluation + Plan note Future Appointments Appointment Date:09/01/2025 10:45:00 AM Scheduled Provider:Mandy Tejeda MD Location:[facility] Appointment Type:URO Office Visit [facility] evaluation noteNo assessment information available [facility] Work Phone: Evaluation note* Diagnosis Well adult exam- Primary Routine general medical examination at a health care facility Encounter for screening mammogram for malignant neoplasm of breast Controlled type 2 diabetes mellitus with hyperglycemia, without long-term current use of insulin ([facility]) H/O hysterectomy for benign disease Hypertriglyceridemia ([facility]) Pure hyperglyceridemia Obesity (BMI 30-39.9) Essential hypertension ([facility]) Unspecified essential hypertension Anxiety Anxiety state, unspecified Insomnia, unspecified type Current moderate episode of major depressive disorder without prior episode (HCC) ([facility]) Encounter for gynecological examination without abnormal finding [...] Primary Lymphocytosis (symptomatic) documented in this encounter [facility] Diagnosis Current moderate episode of major depressive disorder without prior episode (HCC) ([facility])- Primary Controlled type 2 diabetes mellitus with hyperglycemia, without long-term current use of insulin ([facility]) Anxiety Anxiety state, unspecified Essential hypertension ([facility]) Unspecified essential hypertension Allergic rhinitis due to pollen, unspecified seasonality Right flank discomfort Menopause Symptomatic menopausal or female climacteric states Hot flashes Hypertriglyceridemia ([facility]) Pure hyperglyceridemia [facility] Diagnosis Acute cystitis without hematuria- Primary [facility] Diagnosis Current moderate episode of major depressive disorder without prior episode (HCC) ([facility]) PTSD (post-traumatic stress disorder) ([facility]) Posttraumatic stress disorder [facility] Diagnosis PTSD (post-traumatic stress disorder) ([facility]) Posttraumatic stress disorder [facility] Diagnosis PTSD (post-traumatic stress disorder) ([facility]) Posttraumatic stress disorder [facility] Diagnosis Current moderate episode of major depressive disorder without prior episode (HCC) (CMS/HCC)- Primary Controlled type 2 diabetes mellitus with hyperglycemia, without long-term current use of insulin (CMS/HCC) Essential hypertension (CMS/HCC) Unspecified essential hypertension Hypertriglyceridemia (CMS/HCC) Pure hyperglyceridemia Obesity (BMI 30-39.9) PTSD (post-traumatic stress disorder) (CMS/HCC) Posttraumatic stress disorder [facility] No data available for this section [facility] InstructionsNot on filedocumented in this encounter [employer] SystemInstructionsNot on filedocumented in this encounter [facility] No data available for this section [facility] Summary Purpose Family History No Family [...] section and content) DATE CREATED AUTHOR 03/21/2021 [facility] dical Specialist DATE CREATED AUTHOR AUTHOR'S ORGANIZ ATION 09/27/2021 [facility] DATE CREATED AUTHOR AUTHOR'S ORGANIZ ATION 10/27/2023 [facility] DATE CREATED AUTHOR AUTHOR'S ORGANIZ ATION 12/07/2023 [facility] DATE CREATED AUTHOR AUTHOR'S ORGANIZ ATION 07/09/2024 [facility] DATE CREATED AUTHOR AUTHOR'S ORGANIZ ATION 07/31/2024 [facility] dical Specialists [facility] DATE CREATED AUTHOR AUTHOR'S ORGANIZ ATION 09/04/2024 [facility] Care Teams (unrecognized sec tion and content) Team Status: Inactive Member Role Status Dates VALENTINE Dawkins Attending Provider Active Team Status: Inactive Member [...] October 18, 2023 End: October 18, 2023 Teaching Associate Relationship Specialty Start Date End Date Gilles Mauricio MD [address] [place] [facility] [place] [address] PCP - General Family Medicine 07/23/22 Kerri Manzanares, PRODUCT PLANNER [address] [facility] [place] [address] PCP - Medical [place] [place] [employer] 01/21/23 03/03/99 Teaching Associate Relationship Specialty Start Date End Date Gilles Mauricio MD [address] [facility] [place] [address] PCP - General Family Medicine 07/23/22 Kerri Manzanares, PRODUCT PLANNER [address] [facility] [place] [address] PCP - Medical [place] [employer] 01/21/23 03/03/99 Teaching Associate Relationship Specialty Start Date End Date Gilles Mauricio MD [address] [facility] [place] [address] PCP - General Family Medicine 07/23/22 Kerri Manzanares, PRODUCT PLANNER [address] [facility] [place] [address] PCP - Medical [place] [employer] 01/21/23 03/03/99 Teaching Associate Relationship Specialty Start Date End Date Gilles Mauricio MD [address] [facility] [place] [address] PCP - General Family Medicine 07/23/22 Kerri Manzanares NP [address] [place] [address] PCP - Medical [place] [employer] 01/21/23 03/03/99 Teaching Associate Relationship Specialty Start Date End Date Gilles Mauricio MD [address] [place] [address] PCP - General Family Medicine 07/23/22 Gilles Mauricio MD [address] [place] [address] PCP - Medical [place] [employer] 01/21/23 03/03/99 Teaching Associate Relationship Specialty Start Date End Date Gilles Mauricio MD [address] [place] [address] PCP - General Family Medicine 07/23/22 Gilles Mauricio MD [address] [place] [address] PCP - Medical [place] [employer] 01/21/23 03/03/99 Teaching Associate Relationship Specialty Start Date End Date Gilles Mauricio MD [address] [facility] [place] [address] PCP - General Family Medicine 07/23/22 Gilles Mauricio MD [address] [facility] [place] [address] PCP - Medical [place] [employer] 01/21/23 03/03/99 Teaching Associate Relationship Specialty Start Date End Date Gilles Mauricio MD [address] [facility] [place] [address] PCP - General Family Medicine 11/29/23 Teaching Associate Relationship Specialty Start Date End Date Gilles Mauricio MD [address] [place] [address] PCP - General Family Medicine 07/23/22 Gilles Mauricio MD [address] [place] [address] PCP - Medical [employer] 01/21/23 03/03/99 Teaching Associate Relationship Specialty Start Date End Date Gilles Mauricio MD [address] [place] [address] PCP - General Family Medicine 07/23/22 Gilles Mauricio MD [address] [place] [address] PCP - Medical [employer] 01/21/23 03/03/99 Teaching Associate Relationship Specialty Start Date End Date Gilles Mauricio MD [address] [place] [address] PCP - General Family Medicine 07/23/22 Gilles Mauricio MD [address] [place] [address] PCP - Medical [employer] 01/21/23 03/03/99 Teaching Associate Relationship Specialty Start Date End Date Gilles Mauricio MD [address] [place] [address] PCP - General Family Medicine 07/23/22 Gilles Mauricio MD [address] [place] [address] PCP - Medical [place] [place] [employer] 01/21/23 03/03/99 Teaching Associate Relationship Specialty Start Date End Date Gilles Mauricio MD [address] [facility] [place] [address] PCP - General Family Medicine 11/29/23 Teaching Associate Relationship Specialty Start Date End Date Gilles Mauricio MD [address] [facility] [place] [address] PCP - General Family Medicine 07/23/22 Gilles Mauricio MD [address] [facility] [place] [address] PCP - Medical [employer] [place] [employer] 01/21/23 03/03/99 Teaching Associate Relationship Specialty Start Date End Date Gilles Mauricio MD [address] [facility] [place] [address] PCP - General Family Medicine 07/23/22 Gilles Mauricio MD [address] [facility] [place] [address] PCP - Medical [place] [place] [employer] 01/21/23 03/03/99 Teaching Associate Relationship Specialty Start Date End Date Gilles Mauricio MD [address] [facility] [place] [address] PCP - General Family Medicine 07/23/22 Gilles Mauricio MD [address] [facility] [place] [address] PCP - Medical [place] [employer] 01/21/23 03/03/99 Teaching Associate Relationship Specialty Start Date End Date Gilles Mauricio MD [address] [facility] [place] [address] PCP - General Family Medicine 07/23/22 Gilles Mauricio MD [address] [facility] [place] [address] PCP - Medical [place] [employer] 01/21/23 03/03/99 Teaching Associate Relationship Specialty Start Date End Date Gilles Mauricio MD [address] [facility] [place] [address] PCP - General Family Medicine 07/23/22 Gilles Mauricio MD [address] [facility] [place] [address] PCP - Medical [place] [employer] 01/21/23 03/03/99 Teaching Associate Relationship Specialty Start Date End Date Gilles Mauricio MD [address] [facility] [place] [address] PCP - General Family Medicine 07/23/22 Gilles Mauricio MD [address] [facility] [place] [address] PCP - Medical [place] [employer] 01/21/23 03/03/99 Teaching Associate Relationship Specialty Start Date End Date Gilles Mauricio MD [address] [facility] [place] [address] PCP - General Family Medicine 07/23/22 Gilles Mauricio MD [address] [facility] [place] [address] PCP - Medical [place] [employer] 01/21/23 03/03/99 Goals (unrecognized section and content) Goals may be documented in a n alternate sectionNo InformationGoals may be documented in an alternate section No data available for this sectionGoals may be documented in an alternate sectionNot on filedocumented as of this encounter No data available for this sectionNot on filedocumented as of this encounter No data available for this section No data available for this section REASON FOR VISIT (unrecogniz ed section and content) Reason Comments Counseling session Specialty Diagnoses / Procedures Referred By Contac t Referred To Contact Bufferer / Behavioral Health Diagnoses Current moderate episode of major depressive disorder without prior episode (HCC) (CMS/HCC) Procedures [facility] OFFICE/OUTPATIENT NEW HIGH MDM 60 MINUTES Gilles Mauricio MD [address] [place] [address] Phone: tel: fax: Apple Boyd LSW Referral ID Status Reason Start Date Expiration Date V isits Requested Visits Authorized [id number] Closed Specialty Services Required 04/30/2024 10/27/2024 99 99 Reason Comments Treatment planning Referral ID Status Reason Start Date Expiration Date Visits Requested Visits Authorized [id number] Authorized Specialty Services Required 04/30/2024 10/27/2024 99 99 Reason Comments Annual Exam Reason Comments URI Reason Comments Leukocytosis Consult Specialty Diagnoses / Procedures Referred By Contac t Referred To Contact Hematology Diagnoses Leukocytosis, unspecified type Procedures [facility] OFFICE OUTPATIENT VISIT 60-74 MINS HIGH MDM AMB REFERRAL TO HEMATOLOGY Kerri Manzanares, CASTING MACHINE ADJUSTER-OVERLOCK HEMMER [address] [place] [address] [place] [address] [place] [address] [address] [place], [place] [id number] Referral ID Status Reason Start Date Expiration Date V isits Requested Visits Authorized [id number] Pending Review 12/03/2023 05/31/2024 1 1 Reason Comments Follow-up Reason Comments New Patient assessment Reason Comments Diabetes FOR RECORDS PERTAINING TO PATIENTS WHO ARE [...] BE BASED ON THE PRIMARY CLINICAL RECORDS. [facility] [facility]. provides no warranty or guarantee of the accuracy or completeness of information in this document.
== END 2024-10-14 11:20 | disposition home or self-care (01) ==
LOC: MAMMO 11:20
PROVIDERS: PCP Family Medicine; Visit Provider Family Medicine
DX: Z12.31 Encounter for screening mammogram for malignant neoplasm of breast (principal)
CPT/HCPCS: 77063; 77067